=== PATIENT | male | born 1940 | race Caucasian/White ===

== ENCOUNTER → 2016-07-19 | Outpatient (CLI) | payer MEDICARE, OTHER ==
[~2016-07-19] MED LIST: AMOX-277; ASPI81TA27 PO; ATOR20TA PO; CLON0.5T3 PO; CYAN100023 PO; HYDR-2595 PO; INFL100I IV; LOSA50TA30 PO; METH2.5T3 PO; MULT-352 PO; OMEGCAP2 PO; PRE1T PO; RIBO25TA PO; SALI0.65
== END | disposition home or self-care (01) ==
LOC: Rad HDHVI 11:22
PROVIDERS: ATTEND Internal Medicine Cardiovascular Disease
DX: I10 Essential (primary) hypertension (principal); E78.5 Hyperlipidemia, unspecified
CPT/HCPCS: 93306

== ENCOUNTER → 2016-07-27 | Outpatient (CLI) | payer MEDICARE, OTHER | END | disposition home or self-care (01) | LOC: Rad HDHVI 11:22 | PROVIDERS: ATTEND Internal Medicine Cardiovascular Disease | DX: I10 Essential (primary) hypertension (principal); I47.9 Paroxysmal tachycardia, unspecified; E78.5 Hyperlipidemia, unspecified | CPT/HCPCS: 93880 ==

== ENCOUNTER → 2016-10-05 | Outpatient (CLI) | payer MEDICARE, OTHER ==
[~2016-10-05] VITALS: Ht 175.3 cm; Wt 90.7 kg
== END | disposition home or self-care (01) ==
LOC: Rad HDHVI 13:21
PROVIDERS: ATTEND Internal Medicine Cardiovascular Disease
DX: I10 Essential (primary) hypertension (principal); E78.00 Pure hypercholesterolemia, unspecified
CPT/HCPCS: 78452; 93017; 96374; A9500

== ENCOUNTER → 2016-10-26 | Outpatient (CLI) | payer MEDICARE, OTHER ==
[~2016-10-26] MED LIST changes: +IOHEXOL 350 MG/ML 100ML IJ ONE
[2016-10-26 14:05] VITALS: BP 123/79
[2016-10-26 14:40] VITALS: BP 133/67
== END | disposition home or self-care (01) ==
LOC: Rad HDHVI 13:50
PROVIDERS: ATTEND Internal Medicine Cardiovascular Disease
DX: E04.1 Nontoxic single thyroid nodule (principal); I25.10 Atherosclerotic heart disease of native coronary artery without angina pectoris; M47.814 Spondylosis without myelopathy or radiculopathy, thoracic region; I11.0 Hypertensive heart disease with heart failure; I50.9 Heart failure, unspecified; I70.0 Atherosclerosis of aorta; I47.9 Paroxysmal tachycardia, unspecified; E78.00 Pure hypercholesterolemia, unspecified; E55.9 Vitamin D deficiency, unspecified; R91.1 Solitary pulmonary nodule
CPT/HCPCS: 70491; 71260; 96374; G0463; Q9967

== ENCOUNTER → 2016-11-04 | Outpatient (CLI) | payer MEDICARE, OTHER ==
[~2016-11-04] MED LIST changes: -IOHEXOL 350 MG/ML 100ML IJ ONE
== END | disposition home or self-care (01) ==
LOC: Rad HDHVI 11:23
PROVIDERS: ATTEND Internal Medicine Cardiovascular Disease
DX: I73.9 Peripheral vascular disease, unspecified (principal)
CPT/HCPCS: 93926

== ENCOUNTER → 2016-12-19 | Outpatient (CLI) | payer MEDICARE, OTHER ==
[2016-12-19 14:15] VITALS: BP 127/79
[2016-12-19 14:30] VITALS: BP 146/74
== END | disposition home or self-care (01) ==
LOC: CHF HDHVI 12:43
PROVIDERS: ATTEND Internal Medicine Cardiovascular Disease
DX: I25.5 Ischemic cardiomyopathy (principal); I50.9 Heart failure, unspecified; E11.9 Type 2 diabetes mellitus without complications; M06.9 Rheumatoid arthritis, unspecified; I73.9 Peripheral vascular disease, unspecified
CPT/HCPCS: G0166; G0463

== ENCOUNTER → 2016-12-20 | Outpatient (CLI) | payer MEDICARE, OTHER ==
[2016-12-20 12:37] VITALS: BP_SYST 113; BP_SYST 121; BP_DIAS 64; BP_DIAS 69
== END | disposition home or self-care (01) ==
LOC: CHF HDHVI 12:30
PROVIDERS: ATTEND Internal Medicine Cardiovascular Disease
DX: I50.22 Chronic systolic (congestive) heart failure (principal); I25.118 Atherosclerotic heart disease of native coronary artery with other forms of angina pectoris; E11.9 Type 2 diabetes mellitus without complications
CPT/HCPCS: G0166

== ENCOUNTER → 2016-12-21 | Outpatient (CLI) | payer MEDICARE, OTHER ==
[2016-12-21 12:38] VITALS: BP_SYST 113; BP_SYST 117; BP_DIAS 60; BP_DIAS 66
== END | disposition home or self-care (01) ==
LOC: CHF HDHVI 12:38
PROVIDERS: ATTEND Internal Medicine Cardiovascular Disease
DX: I50.22 Chronic systolic (congestive) heart failure (principal); I25.118 Atherosclerotic heart disease of native coronary artery with other forms of angina pectoris; E11.9 Type 2 diabetes mellitus without complications
CPT/HCPCS: G0166

== ENCOUNTER → 2016-12-22 | Outpatient (CLI) | payer MEDICARE, OTHER ==
[2016-12-22 12:32] VITALS: BP_SYST 121; BP_SYST 142; BP_DIAS 75; BP_DIAS 79
== END | disposition home or self-care (01) ==
LOC: CHF HDHVI 12:43
PROVIDERS: ATTEND Internal Medicine Cardiovascular Disease
DX: I25.118 Atherosclerotic heart disease of native coronary artery with other forms of angina pectoris (principal); I50.22 Chronic systolic (congestive) heart failure; E11.9 Type 2 diabetes mellitus without complications
CPT/HCPCS: G0166

== ENCOUNTER → 2016-12-23 | Outpatient (CLI) | payer MEDICARE, OTHER ==
[2016-12-23 12:37] VITALS: BP_SYST 112; BP_SYST 130; BP_DIAS 68; BP_DIAS 80
[2016-12-23 13:45] VITALS: BP 127/70
[2016-12-23 14:30] VITALS: BP 142/77
== END | disposition home or self-care (01) ==
LOC: CHF HDHVI 12:23
PROVIDERS: ATTEND Internal Medicine Cardiovascular Disease
DX: R07.81 Pleurodynia (principal); I25.118 Atherosclerotic heart disease of native coronary artery with other forms of angina pectoris
CPT/HCPCS: 71100; G0166; G0463

== ENCOUNTER → 2016-12-26 | Outpatient (CLI) | payer MEDICARE, OTHER ==
[2016-12-26 12:40] VITALS: BP_SYST 130; BP_SYST 133; BP_DIAS 75; BP_DIAS 76
== END | disposition home or self-care (01) ==
LOC: CHF HDHVI 12:22
PROVIDERS: ATTEND Internal Medicine Cardiovascular Disease
DX: I50.22 Chronic systolic (congestive) heart failure (principal); I25.118 Atherosclerotic heart disease of native coronary artery with other forms of angina pectoris
CPT/HCPCS: G0166

== ENCOUNTER → 2016-12-27 | Outpatient (CLI) | payer MEDICARE, OTHER ==
[2016-12-27 12:35] VITALS: BP_SYST 133; BP_SYST 139; BP_DIAS 69; BP_DIAS 98
== END | disposition home or self-care (01) ==
LOC: CHF HDHVI 12:25
PROVIDERS: ATTEND Internal Medicine Cardiovascular Disease
DX: I50.22 Chronic systolic (congestive) heart failure (principal); I25.118 Atherosclerotic heart disease of native coronary artery with other forms of angina pectoris; E11.9 Type 2 diabetes mellitus without complications
CPT/HCPCS: G0166

== ENCOUNTER → 2016-12-28 | Outpatient (CLI) | payer MEDICARE, OTHER ==
[2016-12-28 12:35] VITALS: BP_SYST 132; BP_DIAS 75; BP_DIAS 97
== END | disposition home or self-care (01) ==
LOC: CHF HDHVI 12:20
PROVIDERS: ATTEND Internal Medicine Cardiovascular Disease
DX: I50.22 Chronic systolic (congestive) heart failure (principal); I25.118 Atherosclerotic heart disease of native coronary artery with other forms of angina pectoris; E11.9 Type 2 diabetes mellitus without complications
CPT/HCPCS: G0166

== ENCOUNTER → 2016-12-29 | Outpatient (CLI) | payer MEDICARE, OTHER ==
[2016-12-29 12:28] VITALS: BP_SYST 114; BP_SYST 128; BP_DIAS 68; BP_DIAS 71
== END | disposition home or self-care (01) ==
LOC: CHF HDHVI 12:28
PROVIDERS: ATTEND Internal Medicine Cardiovascular Disease
DX: I50.22 Chronic systolic (congestive) heart failure (principal); I25.118 Atherosclerotic heart disease of native coronary artery with other forms of angina pectoris; E11.9 Type 2 diabetes mellitus without complications
CPT/HCPCS: G0166

== ENCOUNTER → 2016-12-30 | Outpatient (CLI) | payer MEDICARE, OTHER ==
[2016-12-30 12:29] VITALS: BP_SYST 114; BP_SYST 133; BP_DIAS 81; BP_DIAS 82
== END | disposition home or self-care (01) ==
LOC: CHF HDHVI 12:06
PROVIDERS: ATTEND Internal Medicine Cardiovascular Disease
DX: I25.118 Atherosclerotic heart disease of native coronary artery with other forms of angina pectoris (principal); I50.22 Chronic systolic (congestive) heart failure; E11.9 Type 2 diabetes mellitus without complications
CPT/HCPCS: G0166

== ENCOUNTER → 2017-01-02 | Outpatient (CLI) | payer MEDICARE, OTHER ==
[2017-01-02 12:36] VITALS: BP_SYST 113; BP_SYST 122; BP_DIAS 66; BP_DIAS 74
== END | disposition home or self-care (01) ==
LOC: CHF HDHVI 12:20
PROVIDERS: ATTEND Internal Medicine Cardiovascular Disease
DX: I25.118 Atherosclerotic heart disease of native coronary artery with other forms of angina pectoris (principal)
CPT/HCPCS: G0166

== ENCOUNTER → 2017-01-04 | Outpatient (CLI) | payer MEDICARE, OTHER ==
[2017-01-04 12:31] VITALS: BP_SYST 127; BP_SYST 139; BP_DIAS 72; BP_DIAS 75
== END | disposition home or self-care (01) ==
LOC: CHF HDHVI 12:30
PROVIDERS: ATTEND Internal Medicine Cardiovascular Disease
DX: I25.118 Atherosclerotic heart disease of native coronary artery with other forms of angina pectoris (principal); I50.22 Chronic systolic (congestive) heart failure; E11.9 Type 2 diabetes mellitus without complications
CPT/HCPCS: G0166

== ENCOUNTER → 2017-01-05 | Outpatient (CLI) | payer MEDICARE, OTHER ==
[2017-01-05 12:29] VITALS: BP_SYST 111; BP_SYST 133; BP_DIAS 75; BP_DIAS 76
== END | disposition home or self-care (01) ==
LOC: CHF HDHVI 12:18
PROVIDERS: ATTEND Internal Medicine Cardiovascular Disease
DX: I50.22 Chronic systolic (congestive) heart failure (principal); I25.118 Atherosclerotic heart disease of native coronary artery with other forms of angina pectoris
CPT/HCPCS: G0166

== ENCOUNTER → 2017-01-06 | Outpatient (CLI) | payer MEDICARE, OTHER ==
[2017-01-06 12:27] VITALS: BP_SYST 113; BP_SYST 130; BP_DIAS 72; BP_DIAS 76
== END | disposition home or self-care (01) ==
LOC: CHF HDHVI 12:59
PROVIDERS: ATTEND Internal Medicine Cardiovascular Disease
DX: I50.22 Chronic systolic (congestive) heart failure (principal); I25.118 Atherosclerotic heart disease of native coronary artery with other forms of angina pectoris
CPT/HCPCS: G0166

== ENCOUNTER → 2017-01-09 | Outpatient (CLI) | payer MEDICARE, OTHER ==
[2017-01-09 12:20] VITALS: BP_SYST 110; BP_SYST 112; BP_DIAS 68; BP_DIAS 71
== END | disposition home or self-care (01) ==
LOC: CHF HDHVI 12:12
PROVIDERS: ATTEND Internal Medicine Cardiovascular Disease
DX: I25.118 Atherosclerotic heart disease of native coronary artery with other forms of angina pectoris (principal); I50.22 Chronic systolic (congestive) heart failure; E11.9 Type 2 diabetes mellitus without complications
CPT/HCPCS: G0166

== ENCOUNTER → 2017-01-10 | Outpatient (CLI) | payer MEDICARE, OTHER ==
[2017-01-10 12:30] VITALS: BP_SYST 110; BP_SYST 133; BP_DIAS 64; BP_DIAS 65
== END | disposition home or self-care (01) ==
LOC: CHF HDHVI 12:18
PROVIDERS: ATTEND Internal Medicine Cardiovascular Disease
DX: I25.118 Atherosclerotic heart disease of native coronary artery with other forms of angina pectoris (principal); I50.22 Chronic systolic (congestive) heart failure; E11.9 Type 2 diabetes mellitus without complications
CPT/HCPCS: G0166

== ENCOUNTER → 2017-01-11 | Outpatient (CLI) | payer MEDICARE, OTHER ==
[2017-01-11 12:25] VITALS: BP_SYST 110; BP_SYST 114; BP_DIAS 67; BP_DIAS 70
== END | disposition home or self-care (01) ==
LOC: CHF HDHVI 12:11
PROVIDERS: ATTEND Internal Medicine Cardiovascular Disease
DX: I25.118 Atherosclerotic heart disease of native coronary artery with other forms of angina pectoris (principal); I50.22 Chronic systolic (congestive) heart failure; E11.9 Type 2 diabetes mellitus without complications
CPT/HCPCS: G0166

== ENCOUNTER → 2017-01-13 | Outpatient (CLI) | payer MEDICARE, OTHER ==
[2017-01-13 11:30] VITALS: BP_SYST 121; BP_SYST 139; BP_DIAS 62; BP_DIAS 72
== END | disposition home or self-care (01) ==
LOC: CHF HDHVI 11:21
PROVIDERS: ATTEND Internal Medicine Cardiovascular Disease
DX: I50.22 Chronic systolic (congestive) heart failure (principal); I25.118 Atherosclerotic heart disease of native coronary artery with other forms of angina pectoris; E11.9 Type 2 diabetes mellitus without complications
CPT/HCPCS: G0166

== ENCOUNTER → 2017-01-16 | Outpatient (CLI) | payer MEDICARE, OTHER ==
[2017-01-16 12:19] VITALS: BP_SYST 110; BP_SYST 125; BP_DIAS 70; BP_DIAS 81
== END | disposition home or self-care (01) ==
LOC: CHF HDHVI 12:14
PROVIDERS: ATTEND Internal Medicine Cardiovascular Disease
DX: I25.118 Atherosclerotic heart disease of native coronary artery with other forms of angina pectoris (principal); I11.0 Hypertensive heart disease with heart failure; I50.22 Chronic systolic (congestive) heart failure; E11.9 Type 2 diabetes mellitus without complications; K21.9 Gastro-esophageal reflux disease without esophagitis
CPT/HCPCS: G0166

== ENCOUNTER → 2017-01-17 | Outpatient (CLI) | payer MEDICARE, OTHER ==
[2017-01-17 12:21] VITALS: BP_SYST 117; BP_SYST 130; BP_DIAS 72; BP_DIAS 73
== END | disposition home or self-care (01) ==
LOC: CHF HDHVI 12:13
PROVIDERS: ATTEND Internal Medicine Cardiovascular Disease
DX: I25.118 Atherosclerotic heart disease of native coronary artery with other forms of angina pectoris (principal); I50.22 Chronic systolic (congestive) heart failure
CPT/HCPCS: G0166

== ENCOUNTER → 2017-01-18 | Outpatient (CLI) | payer MEDICARE, OTHER ==
[2017-01-18 12:16] VITALS: BP_SYST 124; BP_SYST 132; BP_DIAS 67; BP_DIAS 78
== END | disposition home or self-care (01) ==
LOC: CHF HDHVI 12:12
PROVIDERS: ATTEND Internal Medicine Cardiovascular Disease
DX: I25.118 Atherosclerotic heart disease of native coronary artery with other forms of angina pectoris (principal); I50.22 Chronic systolic (congestive) heart failure; E11.9 Type 2 diabetes mellitus without complications
CPT/HCPCS: G0166

== ENCOUNTER → 2017-01-19 | Outpatient (CLI) | payer MEDICARE, OTHER ==
[2017-01-19 12:22] VITALS: BP_SYST 113; BP_SYST 125; BP_DIAS 67
== END | disposition home or self-care (01) ==
LOC: CHF HDHVI 12:10
PROVIDERS: ATTEND Internal Medicine Cardiovascular Disease
DX: I25.118 Atherosclerotic heart disease of native coronary artery with other forms of angina pectoris (principal); I50.22 Chronic systolic (congestive) heart failure; E11.9 Type 2 diabetes mellitus without complications
CPT/HCPCS: G0166

== ENCOUNTER → 2017-01-20 | Outpatient (CLI) | payer MEDICARE, OTHER ==
[2017-01-20 12:09] VITALS: BP_SYST 112; BP_SYST 121; BP_DIAS 62; BP_DIAS 69
== END | disposition home or self-care (01) ==
LOC: CHF HDHVI 12:00
PROVIDERS: ATTEND Internal Medicine Cardiovascular Disease
DX: I25.118 Atherosclerotic heart disease of native coronary artery with other forms of angina pectoris (principal); I50.22 Chronic systolic (congestive) heart failure; E11.9 Type 2 diabetes mellitus without complications
CPT/HCPCS: G0166

== ENCOUNTER → 2017-01-23 | Outpatient (CLI) | payer MEDICARE, OTHER ==
[2017-01-23 12:11] VITALS: BP_SYST 113; BP_SYST 130; BP_DIAS 67; BP_DIAS 74
== END | disposition home or self-care (01) ==
LOC: CHF HDHVI 12:03
PROVIDERS: ATTEND Internal Medicine Cardiovascular Disease
DX: I25.118 Atherosclerotic heart disease of native coronary artery with other forms of angina pectoris (principal); I50.22 Chronic systolic (congestive) heart failure; E11.9 Type 2 diabetes mellitus without complications
CPT/HCPCS: G0166

== ENCOUNTER → 2017-01-24 | Outpatient (CLI) | payer MEDICARE, OTHER ==
[2017-01-24 12:20] VITALS: BP_SYST 112; BP_SYST 133; BP_DIAS 65; BP_DIAS 86
== END | disposition home or self-care (01) ==
LOC: CHF HDHVI 12:09
PROVIDERS: ATTEND Internal Medicine Cardiovascular Disease
DX: I25.118 Atherosclerotic heart disease of native coronary artery with other forms of angina pectoris (principal); I50.22 Chronic systolic (congestive) heart failure; E11.9 Type 2 diabetes mellitus without complications
CPT/HCPCS: G0166

== ENCOUNTER → 2017-01-26 | Outpatient (CLI) | payer MEDICARE, OTHER ==
[2017-01-26 12:08] VITALS: BP_SYST 109; BP_SYST 115; BP_DIAS 66
== END | disposition home or self-care (01) ==
LOC: CHF HDHVI 12:00
PROVIDERS: ATTEND Internal Medicine Cardiovascular Disease
DX: I25.118 Atherosclerotic heart disease of native coronary artery with other forms of angina pectoris (principal); I50.22 Chronic systolic (congestive) heart failure; E11.9 Type 2 diabetes mellitus without complications
CPT/HCPCS: G0166

== ENCOUNTER → 2017-01-27 | Outpatient (CLI) | payer MEDICARE, OTHER ==
[2017-01-27 12:12] VITALS: BP_SYST 113; BP_SYST 119; BP_DIAS 67; BP_DIAS 78
== END | disposition home or self-care (01) ==
LOC: CHF HDHVI 12:05
PROVIDERS: ATTEND Internal Medicine Cardiovascular Disease
DX: I25.118 Atherosclerotic heart disease of native coronary artery with other forms of angina pectoris (principal); I50.22 Chronic systolic (congestive) heart failure; E11.9 Type 2 diabetes mellitus without complications
CPT/HCPCS: G0166

== ENCOUNTER → 2017-01-30 | Outpatient (CLI) | payer MEDICARE, OTHER ==
[2017-01-30 12:16] VITALS: BP_SYST 112; BP_SYST 125; BP_DIAS 69; BP_DIAS 70
== END | disposition home or self-care (01) ==
LOC: CHF HDHVI 12:09
PROVIDERS: ATTEND Internal Medicine Cardiovascular Disease
DX: I25.118 Atherosclerotic heart disease of native coronary artery with other forms of angina pectoris (principal); I50.22 Chronic systolic (congestive) heart failure; E11.9 Type 2 diabetes mellitus without complications
CPT/HCPCS: G0166

== ENCOUNTER → 2017-01-31 | Outpatient (CLI) | payer MEDICARE, OTHER ==
[2017-01-31 12:15] VITALS: BP_SYST 118; BP_SYST 119; BP_DIAS 63; BP_DIAS 65
== END | disposition home or self-care (01) ==
LOC: CHF HDHVI 12:01
PROVIDERS: ATTEND Internal Medicine Cardiovascular Disease
DX: I25.118 Atherosclerotic heart disease of native coronary artery with other forms of angina pectoris (principal); I50.22 Chronic systolic (congestive) heart failure; E11.9 Type 2 diabetes mellitus without complications
CPT/HCPCS: G0166

== ENCOUNTER → 2017-02-01 | Outpatient (CLI) | payer MEDICARE, OTHER ==
[2017-02-01 12:15] VITALS: BP_SYST 109; BP_SYST 110; BP_DIAS 64; BP_DIAS 71
== END | disposition home or self-care (01) ==
LOC: CHF HDHVI 12:15
PROVIDERS: ATTEND Internal Medicine Cardiovascular Disease
DX: I25.118 Atherosclerotic heart disease of native coronary artery with other forms of angina pectoris (principal); I50.22 Chronic systolic (congestive) heart failure; E11.9 Type 2 diabetes mellitus without complications
CPT/HCPCS: G0166

== ENCOUNTER → 2017-02-03 | Outpatient (CLI) | payer MEDICARE, OTHER ==
[2017-02-03 12:09] VITALS: BP_SYST 115; BP_SYST 135; BP_DIAS 63; BP_DIAS 69
== END | disposition home or self-care (01) ==
LOC: CHF HDHVI 12:00
PROVIDERS: ATTEND Internal Medicine Cardiovascular Disease
DX: I25.118 Atherosclerotic heart disease of native coronary artery with other forms of angina pectoris (principal); I50.22 Chronic systolic (congestive) heart failure; E11.9 Type 2 diabetes mellitus without complications
CPT/HCPCS: G0166

== ENCOUNTER → 2017-02-06 | Outpatient (CLI) | payer MEDICARE, OTHER ==
[2017-02-06 12:24] VITALS: BP_SYST 113; BP_SYST 121; BP_DIAS 67; BP_DIAS 72
== END | disposition home or self-care (01) ==
LOC: CHF HDHVI 12:08
PROVIDERS: ATTEND Internal Medicine Cardiovascular Disease
DX: I25.118 Atherosclerotic heart disease of native coronary artery with other forms of angina pectoris (principal); I50.22 Chronic systolic (congestive) heart failure
CPT/HCPCS: G0166

== ENCOUNTER → 2017-02-07 | Outpatient (CLI) | payer MEDICARE, OTHER ==
[2017-02-07 12:12] VITALS: BP_SYST 130; BP_SYST 132; BP_DIAS 73; BP_DIAS 76
== END | disposition home or self-care (01) ==
LOC: CHF HDHVI 12:01
PROVIDERS: ATTEND Internal Medicine Cardiovascular Disease
DX: I25.118 Atherosclerotic heart disease of native coronary artery with other forms of angina pectoris (principal); I50.22 Chronic systolic (congestive) heart failure
CPT/HCPCS: G0166

== ENCOUNTER → 2017-02-08 | Outpatient (CLI) | payer MEDICARE, OTHER ==
[2017-02-08 12:20] VITALS: BP_SYST 110; BP_SYST 118; BP_DIAS 68; BP_DIAS 92
== END | disposition home or self-care (01) ==
LOC: CHF HDHVI 12:13
PROVIDERS: ATTEND Internal Medicine Cardiovascular Disease
DX: I25.118 Atherosclerotic heart disease of native coronary artery with other forms of angina pectoris (principal); I50.22 Chronic systolic (congestive) heart failure; E11.9 Type 2 diabetes mellitus without complications
CPT/HCPCS: G0166

== ENCOUNTER → 2017-02-09 | Outpatient (CLI) | payer MEDICARE, OTHER ==
[2017-02-09 12:16] VITALS: BP_SYST 115; BP_SYST 135; BP_DIAS 66; BP_DIAS 67
== END | disposition home or self-care (01) ==
LOC: CHF HDHVI 12:06
PROVIDERS: ATTEND Internal Medicine Cardiovascular Disease
DX: I50.22 Chronic systolic (congestive) heart failure (principal); I25.118 Atherosclerotic heart disease of native coronary artery with other forms of angina pectoris; E11.9 Type 2 diabetes mellitus without complications
CPT/HCPCS: G0166

== ENCOUNTER → 2017-10-09 | Outpatient (CLI) | payer MEDICARE, OTHER | END | disposition home or self-care (01) | LOC: Rad HDHVI 12:41 | PROVIDERS: ATTEND Internal Medicine Cardiovascular Disease | DX: I11.0 Hypertensive heart disease with heart failure (principal); I50.33 Acute on chronic diastolic (congestive) heart failure; E78.00 Pure hypercholesterolemia, unspecified; E11.9 Type 2 diabetes mellitus without complications; E78.5 Hyperlipidemia, unspecified | CPT/HCPCS: 93306 ==

== ENCOUNTER → 2017-10-27 | Outpatient (CLI) | payer MEDICARE, OTHER ==
[~2017-10-27] VITALS: Ht 175.3 cm; Wt 90.7 kg
[2017-10-27 12:28] LABS: Basophils # (auto) 0 uL; Basophils % (auto) 0.7 % (0.0-2.0); Eosinophils # (auto) 0.2 uL; Eosinophils % (auto) 2.9 % (0.0-7.0); Hematocrit 44.2 % (41.0-53.0); Hemoglobin 15.2 g/dL (13.5-17.5); Lymphocytes # (auto) 2.5 uL; Lymphocytes % (auto) 36.8 % (10.0-50.0); Mean Corpuscular Hemoglobin 31.6 pg (28.0-32.0); Mean Corpuscular Hgb Conc. 34.3 g/dL (32.0-36.0); Mean Corpuscular Volume 92.2 fL (80.0-100.0); Monocytes # (auto) 0.7 uL; Neutrophils # (auto) 3.3 uL; Neutrophils % (auto) 49.6 % (37.0-80.0); Nucleated Red Blood Cells % 0.2 %; Platelet Count (auto) 184 10^3/uL (140-450); Red Cell Distribution Width 14.2 % (11.8-14.3); White Blood Cell 6.7 10^3/uL (4.4-10.8)
[2017-10-27 12:48] LABS: Free T4 (Free Thyroxine) 1.27 ng/dL (0.89-1.76); Prostate Specific Antigen 0.03 ng/mL (0.0-4.0)
[2017-10-27 13:14] LABS: Albumin 3.9 g/dL (3.4-5.0); BUN/Creatinine Ratio 15.2; Bilirubin, Total 0.8 mg/dL (0.2-1.0); Calcium 9.1 mg/dL (8.5-10.1); Potassium 3.5 mmol/L (3.5-5.1); Total Protein 7.7 g/dL (6.4-8.2)
[2017-10-27 16:03] LABS: Urine Blood Negative /uL (Negative); Urine Specific Gravity 1.039 (1.001-1.035)
== END | disposition home or self-care (01) ==
LOC: Rad HDHVI 10:29
PROVIDERS: ATTEND Internal Medicine Cardiovascular Disease
DX: E78.00 Pure hypercholesterolemia, unspecified (principal); M79.1 Myalgia; E78.5 Hyperlipidemia, unspecified; D64.9 Anemia, unspecified; I10 Essential (primary) hypertension; E11.9 Type 2 diabetes mellitus without complications; E03.9 Hypothyroidism, unspecified; E55.9 Vitamin D deficiency, unspecified; R53.81 Other malaise; R97.20 Elevated prostate specific antigen [PSA]; R74.8 Abnormal levels of other serum enzymes; D51.9 Vitamin B12 deficiency anemia, unspecified; N39.0 Urinary tract infection, site not specified
CPT/HCPCS: 36415; 78452; 80053; 80061; 81003; 82306; 82550; 82607; 83036; 84153; 84403; 84439; 84443; 85025; 93017; 96374; A9500

== ENCOUNTER → 2017-12-04 | Outpatient (CLI) | payer MEDICARE, OTHER ==
[~2017-12-04] MED LIST changes: +READI-CAT 2 (BARIUM SULF)(VANILLA SMOOTHIE) 450ML ONE
== END ==
LOC: Rad HDHVI 09:58
PROVIDERS: ATTEND Internal Medicine Cardiovascular Disease
DX: K57.30 Diverticulosis of large intestine without perforation or abscess without bleeding (principal); K44.9 Diaphragmatic hernia without obstruction or gangrene; I70.0 Atherosclerosis of aorta; E78.5 Hyperlipidemia, unspecified; E03.9 Hypothyroidism, unspecified; E11.9 Type 2 diabetes mellitus without complications; I11.0 Hypertensive heart disease with heart failure; I50.33 Acute on chronic diastolic (congestive) heart failure; E78.00 Pure hypercholesterolemia, unspecified
CPT/HCPCS: 74176

== ENCOUNTER → 2018-04-02 | Outpatient (CLI) | payer MEDICARE, OTHER ==
[~2018-04-02] MED LIST changes: +CLON0.5T10 PO; -CLON0.5T3 PO; +CLOP75TA28 PO; +GLUC500T48 PO; +LANS30CA63 PO; +LEVO500I7 PO; +OME20T PO; -READI-CAT 2 (BARIUM SULF)(VANILLA SMOOTHIE) 450ML ONE
[2018-04-02 10:55] VITALS: BP 104/61
[2018-04-02 11:17] VITALS: BP 119/68
[2018-04-02 15:54] LABS: Basophils # (auto) 0 uL; Eosinophils # (auto) 0.2 uL; Eosinophils % (auto) 5.1 % (0.0-7.0); Hematocrit 41.2 % (41.0-53.0); Hemoglobin 14.2 g/dL (13.5-17.5); Lymphocytes # (auto) 1.6 uL; Lymphocytes % (auto) 35.4 % (10.0-50.0); Mean Corpuscular Hemoglobin 31.3 pg (28.0-32.0); Mean Corpuscular Hgb Conc. 34.3 g/dL (32.0-36.0); Mean Corpuscular Volume 91.1 fL (80.0-100.0); Monocytes # (auto) 0.5 uL; Monocytes % (auto) 11.1 % (0.0-12.0); Neutrophils # (auto) 2.2 uL; Neutrophils % (auto) 47.4 % (37.0-80.0); Nucleated Red Blood Cells % 1.6 %; Platelet Count (auto) 136 10^3/uL (140-450); Red Blood Cells 4.53 10^6/uL (4.5-5.90); Red Cell Distribution Width 14.5 % (11.8-14.3); White Blood Cell 4.5 10^3/uL (4.4-10.8)
[2018-04-02 15:58] LABS: BUN/Creatinine Ratio 12.9; Calcium 8.5 mg/dL (8.5-10.1); Potassium 3.5 mmol/L (3.5-5.1)
[2018-04-02 16:13] LABS: INR 0.97 (0.9-1.15); Partial Thromboplastin Time 28.9 sec (23.78-33.04); Prothrombin Time 10.4 sec (9.27-12.13)
== END | disposition home or self-care (01) ==
LOC: LAB 10:46
PROVIDERS: ATTEND Internal Medicine Cardiovascular Disease
DX: Z01.818 Encounter for other preprocedural examination (principal); D64.9 Anemia, unspecified; R79.1 Abnormal coagulation profile; I10 Essential (primary) hypertension
CPT/HCPCS: 36415; 80048; 85025; 85610; 85730; 93005; G0463

== ENCOUNTER → 2018-04-16 | Outpatient (CLI) | payer MEDICARE, OTHER ==
[~2018-04-16] MED LIST changes: -AMOX-277; -ASPI81TA27 PO; -ATOR20TA PO; -CYAN100023 PO; -MULT-352 PO; -PRE1T PO; -RIBO25TA PO; -SALI0.65
[2018-04-16 13:00] VITALS: BP 136/71
[2018-04-16 13:30] VITALS: BP 133/80
[2018-04-16 14:00] VITALS: BP_SYST 133; BP_SYST 136; BP_DIAS 71; BP_DIAS 80
== END | disposition home or self-care (01) ==
LOC: CHF HDHVI 13:16
PROVIDERS: ATTEND Internal Medicine Cardiovascular Disease
DX: I25.118 Atherosclerotic heart disease of native coronary artery with other forms of angina pectoris (principal); I11.0 Hypertensive heart disease with heart failure; I50.23 Acute on chronic systolic (congestive) heart failure; I25.10 Atherosclerotic heart disease of native coronary artery without angina pectoris; Z98.61 Coronary angioplasty status
CPT/HCPCS: 93005; G0166; G0463

== ENCOUNTER → 2018-04-17 | Outpatient (CLI) | payer MEDICARE, OTHER ==
[2018-04-17 13:39] VITALS: BP_SYST 117; BP_DIAS 68; BP_DIAS 69
== END | disposition home or self-care (01) ==
LOC: CHF HDHVI 13:25
PROVIDERS: ATTEND Internal Medicine Cardiovascular Disease
DX: I25.118 Atherosclerotic heart disease of native coronary artery with other forms of angina pectoris (principal); I50.23 Acute on chronic systolic (congestive) heart failure; Z98.61 Coronary angioplasty status
CPT/HCPCS: G0166

== ENCOUNTER → 2018-04-18 | Outpatient (CLI) | payer MEDICARE, OTHER ==
[2018-04-18 13:38] VITALS: BP_SYST 126; BP_SYST 132; BP_DIAS 55; BP_DIAS 74
== END | disposition home or self-care (01) ==
LOC: CHF HDHVI 13:28
PROVIDERS: ATTEND Internal Medicine Cardiovascular Disease
DX: I25.118 Atherosclerotic heart disease of native coronary artery with other forms of angina pectoris (principal); I50.23 Acute on chronic systolic (congestive) heart failure; Z98.61 Coronary angioplasty status
CPT/HCPCS: G0166

== ENCOUNTER → 2018-04-19 | Outpatient (CLI) | payer MEDICARE, OTHER ==
[2018-04-19 13:44] VITALS: BP_SYST 126; BP_SYST 133; BP_DIAS 72; BP_DIAS 90
== END | disposition home or self-care (01) ==
LOC: CHF HDHVI 13:21
PROVIDERS: ATTEND Internal Medicine Cardiovascular Disease
DX: I25.118 Atherosclerotic heart disease of native coronary artery with other forms of angina pectoris (principal); I11.0 Hypertensive heart disease with heart failure; I50.23 Acute on chronic systolic (congestive) heart failure; Z98.61 Coronary angioplasty status
CPT/HCPCS: G0166

== ENCOUNTER → 2018-04-20 | Outpatient (CLI) | payer MEDICARE, OTHER ==
[2018-04-20 11:57] VITALS: BP_SYST 118; BP_SYST 119; BP_DIAS 68; BP_DIAS 69
== END | disposition home or self-care (01) ==
LOC: CHF HDHVI 11:53
PROVIDERS: ATTEND Internal Medicine Cardiovascular Disease
DX: I25.118 Atherosclerotic heart disease of native coronary artery with other forms of angina pectoris (principal); I11.0 Hypertensive heart disease with heart failure; I50.23 Acute on chronic systolic (congestive) heart failure; Z98.61 Coronary angioplasty status
CPT/HCPCS: G0166

== ENCOUNTER → 2018-04-23 | Outpatient (CLI) | payer MEDICARE, OTHER ==
[2018-04-23 13:39] VITALS: BP_SYST 123; BP_SYST 134; BP_DIAS 66; BP_DIAS 75
== END | disposition home or self-care (01) ==
LOC: Rad HDHVI 13:01
PROVIDERS: ATTEND Internal Medicine Cardiovascular Disease
DX: I25.118 Atherosclerotic heart disease of native coronary artery with other forms of angina pectoris (principal); I11.0 Hypertensive heart disease with heart failure; I50.23 Acute on chronic systolic (congestive) heart failure; Z98.61 Coronary angioplasty status
CPT/HCPCS: G0166

== ENCOUNTER → 2018-04-25 | Outpatient (CLI) | payer MEDICARE, OTHER ==
[2018-04-25 13:29] VITALS: BP_SYST 115; BP_SYST 119; BP_DIAS 63; BP_DIAS 68
== END | disposition home or self-care (01) ==
LOC: Rad HDHVI 13:25
PROVIDERS: ATTEND Internal Medicine Cardiovascular Disease
DX: I25.118 Atherosclerotic heart disease of native coronary artery with other forms of angina pectoris (principal); I11.0 Hypertensive heart disease with heart failure; I50.23 Acute on chronic systolic (congestive) heart failure; Z98.61 Coronary angioplasty status
CPT/HCPCS: G0166

== ENCOUNTER → 2018-04-26 | Outpatient (CLI) | payer MEDICARE, OTHER ==
[2018-04-26 12:00] VITALS: BP_SYST 114; BP_SYST 140; BP_DIAS 62; BP_DIAS 79
== END | disposition home or self-care (01) ==
LOC: CHF HDHVI 11:55
PROVIDERS: ATTEND Internal Medicine Cardiovascular Disease
DX: I25.118 Atherosclerotic heart disease of native coronary artery with other forms of angina pectoris (principal); I11.0 Hypertensive heart disease with heart failure; I50.23 Acute on chronic systolic (congestive) heart failure; Z98.61 Coronary angioplasty status
CPT/HCPCS: G0166

== ENCOUNTER → 2018-04-27 | Outpatient (CLI) | payer MEDICARE, OTHER ==
[2018-04-27 16:06] VITALS: BP 125/65
[2018-04-27 16:07] VITALS: BP 109/65
== END | disposition home or self-care (01) ==
LOC: CHF HDHVI 12:01
PROVIDERS: ATTEND Internal Medicine Cardiovascular Disease
DX: I25.118 Atherosclerotic heart disease of native coronary artery with other forms of angina pectoris (principal); I11.0 Hypertensive heart disease with heart failure; I50.23 Acute on chronic systolic (congestive) heart failure; Z98.61 Coronary angioplasty status
CPT/HCPCS: G0166

== ENCOUNTER → 2018-04-30 | Outpatient (CLI) | payer MEDICARE, OTHER ==
[2018-04-30 13:35] VITALS: BP_SYST 117; BP_SYST 137; BP_DIAS 63; BP_DIAS 68
== END | disposition home or self-care (01) ==
LOC: CHF HDHVI 13:30
PROVIDERS: ATTEND Internal Medicine Cardiovascular Disease
DX: I25.118 Atherosclerotic heart disease of native coronary artery with other forms of angina pectoris (principal); I11.0 Hypertensive heart disease with heart failure; I50.23 Acute on chronic systolic (congestive) heart failure; Z98.61 Coronary angioplasty status
CPT/HCPCS: G0166

== ENCOUNTER → 2018-05-01 | Outpatient (CLI) | payer MEDICARE, OTHER ==
[2018-05-01 13:37] VITALS: BP_SYST 134; BP_SYST 136; BP_DIAS 66
== END | disposition home or self-care (01) ==
LOC: CHF HDHVI 13:25
PROVIDERS: ATTEND Internal Medicine Cardiovascular Disease
DX: I25.118 Atherosclerotic heart disease of native coronary artery with other forms of angina pectoris (principal); I11.0 Hypertensive heart disease with heart failure; I50.23 Acute on chronic systolic (congestive) heart failure; Z98.61 Coronary angioplasty status
CPT/HCPCS: G0166

== ENCOUNTER → 2018-05-02 | Outpatient (CLI) | payer MEDICARE, OTHER ==
[2018-05-02 13:42] VITALS: BP 115/67
== END | disposition home or self-care (01) ==
LOC: CHF HDHVI 13:32
PROVIDERS: ATTEND Internal Medicine Cardiovascular Disease
DX: I25.118 Atherosclerotic heart disease of native coronary artery with other forms of angina pectoris (principal); I11.0 Hypertensive heart disease with heart failure; I50.23 Acute on chronic systolic (congestive) heart failure; Z98.61 Coronary angioplasty status
CPT/HCPCS: G0166

== ENCOUNTER → 2018-05-03 | Outpatient (CLI) | payer MEDICARE, OTHER ==
[2018-05-03 13:42] VITALS: BP_SYST 121; BP_SYST 140; BP_DIAS 71
== END | disposition home or self-care (01) ==
LOC: CHF HDHVI 13:37
PROVIDERS: ATTEND Internal Medicine Cardiovascular Disease
DX: I25.118 Atherosclerotic heart disease of native coronary artery with other forms of angina pectoris (principal); I11.0 Hypertensive heart disease with heart failure; I50.23 Acute on chronic systolic (congestive) heart failure; Z98.61 Coronary angioplasty status
CPT/HCPCS: G0166

== ENCOUNTER → 2018-05-04 | Outpatient (CLI) | payer MEDICARE, OTHER ==
[2018-05-04 10:08] VITALS: BP_SYST 135; BP_SYST 142; BP_DIAS 83; BP_DIAS 85
[2018-05-04 12:11] VITALS: BP_SYST 110; BP_SYST 126; BP_DIAS 65; BP_DIAS 74
== END | disposition home or self-care (01) ==
LOC: CHF HDHVI 11:56
PROVIDERS: ATTEND Internal Medicine Cardiovascular Disease
DX: I25.118 Atherosclerotic heart disease of native coronary artery with other forms of angina pectoris (principal); I11.0 Hypertensive heart disease with heart failure; I50.23 Acute on chronic systolic (congestive) heart failure; Z98.61 Coronary angioplasty status
CPT/HCPCS: G0166

== ENCOUNTER → 2018-05-07 | Outpatient (CLI) | payer MEDICARE, OTHER ==
[2018-05-07 13:38] VITALS: BP_SYST 114; BP_SYST 135; BP_DIAS 67; BP_DIAS 72
== END | disposition home or self-care (01) ==
LOC: CHF HDHVI 13:31
PROVIDERS: ATTEND Internal Medicine Cardiovascular Disease
DX: I25.118 Atherosclerotic heart disease of native coronary artery with other forms of angina pectoris (principal); I50.23 Acute on chronic systolic (congestive) heart failure; Z98.61 Coronary angioplasty status
CPT/HCPCS: G0166

== ENCOUNTER → 2018-05-08 | Outpatient (CLI) | payer MEDICARE, OTHER ==
[2018-05-08 13:41] VITALS: BP_SYST 126; BP_SYST 129; BP_DIAS 66; BP_DIAS 71
== END | disposition home or self-care (01) ==
LOC: CHF HDHVI 13:29
PROVIDERS: ATTEND Internal Medicine Cardiovascular Disease
DX: I25.118 Atherosclerotic heart disease of native coronary artery with other forms of angina pectoris (principal); I11.0 Hypertensive heart disease with heart failure; I50.23 Acute on chronic systolic (congestive) heart failure; Z98.61 Coronary angioplasty status
CPT/HCPCS: G0166

== ENCOUNTER → 2018-05-09 | Outpatient (CLI) | payer MEDICARE, OTHER ==
[2018-05-09 13:36] VITALS: BP_SYST 128; BP_SYST 131; BP_DIAS 67; BP_DIAS 68
== END | disposition home or self-care (01) ==
LOC: CHF HDHVI 13:29
PROVIDERS: ATTEND Internal Medicine Cardiovascular Disease
DX: I25.118 Atherosclerotic heart disease of native coronary artery with other forms of angina pectoris (principal); I11.0 Hypertensive heart disease with heart failure; I50.23 Acute on chronic systolic (congestive) heart failure; Z98.61 Coronary angioplasty status
CPT/HCPCS: G0166

== ENCOUNTER → 2018-05-11 | Outpatient (CLI) | payer MEDICARE, OTHER ==
[2018-05-11 12:14] VITALS: BP_SYST 118; BP_SYST 125; BP_DIAS 68; BP_DIAS 74
== END | disposition home or self-care (01) ==
LOC: CHF HDHVI 12:01
PROVIDERS: ATTEND Internal Medicine Cardiovascular Disease
DX: I25.118 Atherosclerotic heart disease of native coronary artery with other forms of angina pectoris (principal); I50.23 Acute on chronic systolic (congestive) heart failure; Z98.61 Coronary angioplasty status
CPT/HCPCS: G0166

== ENCOUNTER → 2018-05-14 | Outpatient (CLI) | payer MEDICARE, OTHER ==
[2018-05-14 13:35] VITALS: BP_SYST 116; BP_SYST 135; BP_DIAS 69; BP_DIAS 71
== END | disposition home or self-care (01) ==
LOC: CHF HDHVI 13:30
PROVIDERS: ATTEND Internal Medicine Cardiovascular Disease
DX: I25.118 Atherosclerotic heart disease of native coronary artery with other forms of angina pectoris (principal); I11.0 Hypertensive heart disease with heart failure; I50.23 Acute on chronic systolic (congestive) heart failure; Z98.61 Coronary angioplasty status
CPT/HCPCS: G0166

== ENCOUNTER → 2018-05-15 | Outpatient (CLI) | payer MEDICARE, OTHER ==
[2018-05-15 13:48] VITALS: BP_SYST 132; BP_SYST 133; BP_DIAS 77; BP_DIAS 85
== END | disposition home or self-care (01) ==
LOC: CHF HDHVI 13:25
PROVIDERS: ATTEND Internal Medicine Cardiovascular Disease
DX: I25.118 Atherosclerotic heart disease of native coronary artery with other forms of angina pectoris (principal); I11.0 Hypertensive heart disease with heart failure; I50.23 Acute on chronic systolic (congestive) heart failure; Z98.61 Coronary angioplasty status
CPT/HCPCS: G0166

== ENCOUNTER → 2018-05-16 | Outpatient (CLI) | payer MEDICARE, OTHER ==
[2018-05-16 13:38] VITALS: BP_SYST 122; BP_SYST 124; BP_DIAS 66; BP_DIAS 76
== END | disposition home or self-care (01) ==
LOC: CHF HDHVI 13:27
PROVIDERS: ATTEND Internal Medicine Cardiovascular Disease
DX: I25.118 Atherosclerotic heart disease of native coronary artery with other forms of angina pectoris (principal); I11.0 Hypertensive heart disease with heart failure; I50.23 Acute on chronic systolic (congestive) heart failure; Z98.61 Coronary angioplasty status
CPT/HCPCS: G0166

== ENCOUNTER → 2018-05-17 | Outpatient (CLI) | payer MEDICARE, OTHER ==
[2018-05-17 13:43] VITALS: BP_SYST 111; BP_SYST 117; BP_DIAS 61; BP_DIAS 89
== END | disposition home or self-care (01) ==
LOC: CHF HDHVI 13:20
PROVIDERS: ATTEND Internal Medicine Cardiovascular Disease
DX: I25.118 Atherosclerotic heart disease of native coronary artery with other forms of angina pectoris (principal); I50.23 Acute on chronic systolic (congestive) heart failure; Z98.61 Coronary angioplasty status
CPT/HCPCS: G0166

== ENCOUNTER → 2018-05-18 | Outpatient (CLI) | payer MEDICARE, OTHER ==
[2018-05-18 12:21] VITALS: BP_SYST 112; BP_SYST 118; BP_DIAS 55; BP_DIAS 67
== END | disposition home or self-care (01) ==
LOC: CHF HDHVI 11:58
PROVIDERS: ATTEND Internal Medicine Cardiovascular Disease
DX: I25.118 Atherosclerotic heart disease of native coronary artery with other forms of angina pectoris (principal); I11.0 Hypertensive heart disease with heart failure; I50.23 Acute on chronic systolic (congestive) heart failure; Z98.61 Coronary angioplasty status
CPT/HCPCS: G0166

== ENCOUNTER → 2018-05-21 | Outpatient (CLI) | payer MEDICARE, OTHER ==
[2018-05-21 13:44] VITALS: BP_SYST 113; BP_SYST 139; BP_DIAS 65; BP_DIAS 73
== END | disposition home or self-care (01) ==
LOC: CHF HDHVI 13:31
PROVIDERS: ATTEND Internal Medicine Cardiovascular Disease
DX: I25.118 Atherosclerotic heart disease of native coronary artery with other forms of angina pectoris (principal); I11.0 Hypertensive heart disease with heart failure; I50.23 Acute on chronic systolic (congestive) heart failure; Z98.61 Coronary angioplasty status
CPT/HCPCS: G0166

== ENCOUNTER → 2018-05-22 | Outpatient (CLI) | payer MEDICARE, OTHER ==
[~2018-05-22] MED LIST changes: +VERAPAMIL 2.5MG/ML INJ 2ML VIAL IV ONE
[2018-05-22 13:40] VITALS: BP_SYST 118; BP_SYST 119; BP_DIAS 63; BP_DIAS 74
== END | disposition home or self-care (01) ==
LOC: CHF HDHVI 13:42
PROVIDERS: ATTEND Internal Medicine Cardiovascular Disease
DX: I25.118 Atherosclerotic heart disease of native coronary artery with other forms of angina pectoris (principal); I11.0 Hypertensive heart disease with heart failure; I50.23 Acute on chronic systolic (congestive) heart failure; Z98.61 Coronary angioplasty status
CPT/HCPCS: G0166

== ENCOUNTER → 2018-05-28 | Outpatient (CLI) | payer MEDICARE, OTHER ==
[~2018-05-28] VITALS: Ht 172.7 cm; Wt 81.6 kg
[~2018-05-28] MED LIST changes: -VERAPAMIL 2.5MG/ML INJ 2ML VIAL IV ONE
[2018-05-28 13:43] VITALS: BP_SYST 118; BP_SYST 134; BP_DIAS 59; BP_DIAS 64
== END | disposition home or self-care (01) ==
LOC: CHF HDHVI 09:50
PROVIDERS: ATTEND Internal Medicine Cardiovascular Disease
DX: I25.118 Atherosclerotic heart disease of native coronary artery with other forms of angina pectoris (principal); I11.0 Hypertensive heart disease with heart failure; I50.23 Acute on chronic systolic (congestive) heart failure; I25.5 Ischemic cardiomyopathy; E78.00 Pure hypercholesterolemia, unspecified; D64.9 Anemia, unspecified
CPT/HCPCS: 78452; 93017; 96374; A9500; G0166

== ENCOUNTER → 2018-05-29 | Outpatient (CLI) | payer MEDICARE, OTHER ==
[2018-05-29 13:41] VITALS: BP_SYST 114; BP_SYST 135; BP_DIAS 63; BP_DIAS 67
== END | disposition home or self-care (01) ==
LOC: CHF HDHVI 13:26
PROVIDERS: ATTEND Internal Medicine Cardiovascular Disease
DX: I25.118 Atherosclerotic heart disease of native coronary artery with other forms of angina pectoris (principal); I11.0 Hypertensive heart disease with heart failure; I50.23 Acute on chronic systolic (congestive) heart failure; Z98.61 Coronary angioplasty status
CPT/HCPCS: G0166

== ENCOUNTER → 2018-05-30 | Outpatient (CLI) | payer MEDICARE, OTHER ==
[2018-05-30 13:40] VITALS: BP_SYST 127; BP_SYST 138; BP_DIAS 70; BP_DIAS 71
== END | disposition home or self-care (01) ==
LOC: CHF HDHVI 13:47
PROVIDERS: ATTEND Internal Medicine Cardiovascular Disease
DX: I25.118 Atherosclerotic heart disease of native coronary artery with other forms of angina pectoris (principal); I11.0 Hypertensive heart disease with heart failure; I50.23 Acute on chronic systolic (congestive) heart failure; Z98.61 Coronary angioplasty status
CPT/HCPCS: G0166

== ENCOUNTER → 2018-05-31 | Outpatient (CLI) | payer MEDICARE, OTHER ==
[2018-05-31 13:39] VITALS: BP_SYST 112; BP_SYST 114; BP_DIAS 60; BP_DIAS 66
== END | disposition home or self-care (01) ==
LOC: CHF HDHVI 13:23
PROVIDERS: ATTEND Internal Medicine Cardiovascular Disease
DX: I25.118 Atherosclerotic heart disease of native coronary artery with other forms of angina pectoris (principal); I11.0 Hypertensive heart disease with heart failure; I50.23 Acute on chronic systolic (congestive) heart failure; Z98.61 Coronary angioplasty status
CPT/HCPCS: G0166

== ENCOUNTER → 2018-06-01 | Outpatient (CLI) | payer MEDICARE, OTHER ==
[2018-06-01 12:03] VITALS: BP_SYST 123; BP_DIAS 65; BP_DIAS 66
== END | disposition home or self-care (01) ==
LOC: CHF HDHVI 11:52
PROVIDERS: ATTEND Internal Medicine Cardiovascular Disease
DX: I25.118 Atherosclerotic heart disease of native coronary artery with other forms of angina pectoris (principal); I50.23 Acute on chronic systolic (congestive) heart failure; Z98.61 Coronary angioplasty status
CPT/HCPCS: G0166

== ENCOUNTER → 2018-06-05 | Outpatient (CLI) | payer MEDICARE, OTHER ==
[2018-06-05 13:38] VITALS: BP_SYST 117; BP_SYST 127; BP_DIAS 53; BP_DIAS 60
== END | disposition home or self-care (01) ==
LOC: CHF HDHVI 13:32
PROVIDERS: ATTEND Internal Medicine Cardiovascular Disease
DX: I25.118 Atherosclerotic heart disease of native coronary artery with other forms of angina pectoris (principal); I11.0 Hypertensive heart disease with heart failure; I50.23 Acute on chronic systolic (congestive) heart failure; Z98.61 Coronary angioplasty status
CPT/HCPCS: G0166

== ENCOUNTER → 2018-06-06 | Outpatient (CLI) | payer MEDICARE, OTHER ==
[2018-06-06 13:33] VITALS: BP_SYST 125; BP_SYST 127; BP_DIAS 65; BP_DIAS 68
== END | disposition home or self-care (01) ==
LOC: CHF HDHVI 13:30
PROVIDERS: ATTEND Internal Medicine Cardiovascular Disease
DX: I25.118 Atherosclerotic heart disease of native coronary artery with other forms of angina pectoris (principal); I11.0 Hypertensive heart disease with heart failure; I50.23 Acute on chronic systolic (congestive) heart failure; Z98.61 Coronary angioplasty status
CPT/HCPCS: G0166

== ENCOUNTER → 2018-06-11 | Outpatient (CLI) | payer MEDICARE, OTHER ==
[2018-06-11 13:39] VITALS: BP_SYST 129; BP_SYST 131; BP_DIAS 69; BP_DIAS 72
== END | disposition home or self-care (01) ==
LOC: CHF HDHVI 13:36
PROVIDERS: ATTEND Internal Medicine Cardiovascular Disease
DX: I25.118 Atherosclerotic heart disease of native coronary artery with other forms of angina pectoris (principal); I11.0 Hypertensive heart disease with heart failure; I50.23 Acute on chronic systolic (congestive) heart failure; Z98.61 Coronary angioplasty status
CPT/HCPCS: G0166

== ENCOUNTER → 2018-06-12 | Outpatient (CLI) | payer MEDICARE, OTHER ==
[2018-06-12 13:39] VITALS: BP_SYST 130; BP_DIAS 66; BP_DIAS 71
== END | disposition home or self-care (01) ==
LOC: CHF HDHVI 13:32
PROVIDERS: ATTEND Internal Medicine Cardiovascular Disease
DX: I25.118 Atherosclerotic heart disease of native coronary artery with other forms of angina pectoris (principal); I50.23 Acute on chronic systolic (congestive) heart failure; Z98.61 Coronary angioplasty status
CPT/HCPCS: G0166

== ENCOUNTER → 2018-10-08 | Outpatient (CLI) | payer MEDICARE, OTHER | END | disposition home or self-care (01) | LOC: Rad HDHVI 14:56 | PROVIDERS: ATTEND Internal Medicine Cardiovascular Disease | DX: R41.0 Disorientation, unspecified (principal); I67.2 Cerebral atherosclerosis; G31.9 Degenerative disease of nervous system, unspecified | CPT/HCPCS: 70450 ==

== ENCOUNTER → 2018-10-15 | Outpatient (CLI) | payer MEDICARE, OTHER | END | disposition home or self-care (01) | LOC: Rad HDHVI 12:54 | PROVIDERS: ATTEND Internal Medicine Cardiovascular Disease | DX: I08.3 Combined rheumatic disorders of mitral, aortic and tricuspid valves (principal); I11.9 Hypertensive heart disease without heart failure; I31.3 Pericardial effusion (noninflammatory) | CPT/HCPCS: 93306 ==

== ENCOUNTER → 2019-09-05 | Outpatient (CLI) | payer MEDICARE, OTHER ==
[~2019-09-05] MED LIST changes: +LANS30CA57 PO; -LANS30CA63 PO
== END | disposition home or self-care (01) ==
LOC: Rad HDHVI 10:51
PROVIDERS: ATTEND Internal Medicine Cardiovascular Disease
DX: I25.10 Atherosclerotic heart disease of native coronary artery without angina pectoris (principal); J44.9 Chronic obstructive pulmonary disease, unspecified; I10 Essential (primary) hypertension
CPT/HCPCS: 93306

== ENCOUNTER → 2019-09-18 | Outpatient (CLI) | payer MEDICARE, OTHER ==
[~2019-09-18] VITALS: Ht 172.7 cm; Wt 81.6 kg
[~2019-09-18] MED LIST changes: +ADENOSINE 69 MG in GIVE UN-DILUTED 0 ML IV ONE; +ADENOSINE 90 MG/30 ML INJ IV ONE
[2019-09-18 15:49] LABS: Basophils # (auto) 0.1 10 ^3/uL (0-0.2); Basophils % (auto) 0.6 % (0.0-2.0); Eosinophils # (auto) 0.1 10 ^3/uL (0-0.8); Eosinophils % (auto) 1.5 % (0.0-7.0); Hematocrit 47.2 % (41.0-53.0); Hemoglobin 15.8 g/dL (13.5-17.5); Lymphocytes # (auto) 1.9 10 ^3/uL (0.4-5.4); Lymphocytes % (auto) 22.8 % (10.0-50.0); Mean Corpuscular Hemoglobin 28.2 pg (28.0-32.0); Mean Corpuscular Hgb Conc. 33.5 g/dL (32.0-36.0); Mean Corpuscular Volume 84.4 fL (80.0-100.0); Monocytes # (auto) 0.6 10 ^3/uL (0-1.3); Monocytes % (auto) 7.8 % (0.0-12.0); Neutrophils # (auto) 5.5 10 ^3/uL (1.6-8.6); Neutrophils % (auto) 67.3 % (37.0-80.0); Nucleated Red Blood Cells % 0.2 %; Platelet Count (auto) 219 10^3/uL (140-450); Red Blood Cells 5.59 10^6/uL (4.5-5.90); Red Cell Distribution Width 17.6 % (11.8-14.3); White Blood Cell 8.2 10^3/uL (4.4-10.8)
[2019-09-18 15:51] LABS: Urine Blood Negative /uL (Negative); Urine Specific Gravity 1.021 (1.001-1.035)
[2019-09-18 15:59] LABS: Albumin 4.2 g/dL (3.4-5.0); Calcium 9.6 mg/dL (8.5-10.1); Potassium 4.1 mmol/L (3.5-5.1)
[2019-09-18 16:03] LABS: BUN/Creatinine Ratio 18.1; Bilirubin, Total 0.8 mg/dL (0.2-1.0); Total Protein 9.2 g/dL (6.4-8.2)
[2019-09-18 16:08] LABS: Free T4 (Free Thyroxine) 1.26 ng/dL (0.89-1.76)
[2019-09-18 16:09] LABS: Prostate Specific Antigen 0.05 ng/mL (0.0-4.0)
== END | disposition home or self-care (01) ==
LOC: Rad HDHVI 12:38
PROVIDERS: ATTEND Internal Medicine Cardiovascular Disease
DX: I10 Essential (primary) hypertension (principal); E78.00 Pure hypercholesterolemia, unspecified; M25.519 Pain in unspecified shoulder; R53.1 Weakness
CPT/HCPCS: 36415; 78452; 80053; 80061; 81003; 82306; 82550; 82607; 83036; 84153; 84403; 84439; 84443; 85025; 93005; 96374; 96375; A9500; J0153

== ENCOUNTER → 2019-09-20 | Outpatient (CLI) | payer MEDICARE, OTHER ==
[~2019-09-20] MED LIST changes: -ADENOSINE 69 MG in GIVE UN-DILUTED 0 ML IV ONE; -ADENOSINE 90 MG/30 ML INJ IV ONE; +IOHEXOL 350 MG/ML 100ML IJ ONE
[2019-09-20 12:10] VITALS: BP 139/68
[2019-09-20 12:42] VITALS: BP 145/76
== END | disposition home or self-care (01) ==
LOC: Rad HDHVI 11:51
PROVIDERS: ATTEND Internal Medicine Cardiovascular Disease
DX: M16.11 Unilateral primary osteoarthritis, right hip (principal); M62.50 Muscle wasting and atrophy, not elsewhere classified, unspecified site; K57.30 Diverticulosis of large intestine without perforation or abscess without bleeding; I25.10 Atherosclerotic heart disease of native coronary artery without angina pectoris; K80.20 Calculus of gallbladder without cholecystitis without obstruction; R91.1 Solitary pulmonary nodule; J98.4 Other disorders of lung
CPT/HCPCS: 71260; 73700; Q9967; G0463

== ENCOUNTER → 2019-12-04 | Outpatient (CLI) | payer MEDICARE, OTHER ==
[~2019-12-04] MED LIST changes: -IOHEXOL 350 MG/ML 100ML IJ ONE; +METH2.5T PO; -METH2.5T3 PO
[2019-12-04 14:59] VITALS: BP 143/72
--- NOTE | 2019-12-04 14:59 | NUR ---
Signature Attestation Statement: I AJ CAROLINA performed this procedure EECP on this patient. Addendum: 12/04/19 at 1459 by AJ CAROLINA [email or web address] Amended: Links added.
--- NOTE | 2019-12-04 14:59 | NUR ---
Signature Attestation Statement: I AJ CAROLINA performed this procedure EECP on this patient. Addendum: 12/04/19 at 1500 by AJ CAROLINA [email or web address] Amended: Links added.
--- NOTE | 2019-12-04 15:00 | NUR ---
Signature Attestation Statement: I AJ CAROLINA performed this procedure EECP on this patient. Addendum: 12/04/19 at 1501 by AJ CAROLINA [email or web address] Amended: Links added.
[2019-12-04 15:18] VITALS: BP 140/82
--- NOTE | 2019-12-04 15:18 | NUR ---
Signature Attestation Statement: I AJ CAROLINA performed this procedure EECP on this patient. Addendum: 12/04/19 at 1518 by AJ CAROLINA [email or web address] Amended: Links added.
--- NOTE | 2019-12-04 15:28 | NUR ---
Signature Attestation Statement: I AJ CAROLINA performed this procedure EECP on this patient. Addendum: 12/04/19 at 1528 by AJ CAROLINA [email or web address] Amended: Links added.
== END | disposition home or self-care (01) ==
LOC: CHF HDHVI 13:44
PROVIDERS: ATTEND Internal Medicine Cardiovascular Disease
DX: I25.728 Atherosclerosis of autologous artery coronary artery bypass graft(s) with other forms of angina pectoris (principal); I11.0 Hypertensive heart disease with heart failure; I50.23 Acute on chronic systolic (congestive) heart failure; K21.9 Gastro-esophageal reflux disease without esophagitis; R00.2 Palpitations; M06.9 Rheumatoid arthritis, unspecified
CPT/HCPCS: G0166

== ENCOUNTER → 2019-12-05 | Outpatient (CLI) | payer MEDICARE, OTHER ==
[2019-12-05 15:29] VITALS: BP 145/75
--- NOTE | 2019-12-05 15:29 | NUR ---
Signature Attestation Statement: I AJ CAROLINA performed this procedure EECP on this patient. Addendum: 12/05/19 at 1530 by AJ CAROLINA [email or web address] Amended: Links added.
--- NOTE | 2019-12-05 15:31 | NUR ---
Signature Attestation Statement: I AJ CAROLINA performed this procedure EECP on this patient. Addendum: 12/05/19 at 1531 by AJ CAROLINA [email or web address] Amended: Links added.
--- NOTE | 2019-12-05 15:57 | NUR ---
Signature Attestation Statement: I AJ CAROLINA performed this procedure EECP on this patient. Addendum: 12/05/19 at 1558 by AJ CAROLINA [email or web address] Amended: Links added.
[2019-12-05 15:58] VITALS: BP 144/74
--- NOTE | 2019-12-05 16:10 | NUR ---
Signature Attestation Statement: I AJ CAROLINA performed this procedure EECP on this patient. Addendum: 12/05/19 at 1610 by AJ CAROLINA [email or web address] Amended: Links added.
== END | disposition home or self-care (01) ==
LOC: CHF HDHVI 14:46
PROVIDERS: ATTEND Internal Medicine Cardiovascular Disease
DX: I25.728 Atherosclerosis of autologous artery coronary artery bypass graft(s) with other forms of angina pectoris (principal); I11.0 Hypertensive heart disease with heart failure; I50.23 Acute on chronic systolic (congestive) heart failure; K21.9 Gastro-esophageal reflux disease without esophagitis; R00.2 Palpitations; M06.9 Rheumatoid arthritis, unspecified
CPT/HCPCS: G0166

== ENCOUNTER → 2019-12-06 | Outpatient (CLI) | payer MEDICARE, OTHER ==
[2019-12-06 15:32] VITALS: BP 142/73
--- NOTE | 2019-12-06 15:32 | NUR ---
Signature Attestation Statement: I AJ CAROLINA performed this procedure EECP on this patient. Addendum: 12/06/19 at 1533 by AJ CAROLINA [email or web address] Amended: Links added.
--- NOTE | 2019-12-06 15:33 | NUR ---
Signature Attestation Statement: I AJ CAROLINA performed this procedure EECP on this patient. Addendum: 12/06/19 at 1534 by AJ CAROLINA [email or web address] Amended: Links added.
--- NOTE | 2019-12-06 15:35 | NUR ---
Signature Attestation Statement: I AJ CAROLINA performed this procedure EECP on this patient. Addendum: 12/06/19 at 1536 by AJ CAROLINA [email or web address] Amended: Links added.
[2019-12-06 16:05] VITALS: BP 134/84
--- NOTE | 2019-12-06 16:05 | NUR ---
Signature Attestation Statement: I AJ CAROLINA performed this procedure EECP on this patient. Addendum: 12/06/19 at 1605 by AJ CAROLINA [email or web address] Amended: Links added.
--- NOTE | 2019-12-06 16:16 | NUR ---
Signature Attestation Statement: I AJ CAROLINA performed this procedure EECP on this patient. Addendum: 12/06/19 at 1616 by AJ CAROLINA [email or web address] Amended: Links added.
== END | disposition home or self-care (01) ==
LOC: CHF HDHVI 14:59
PROVIDERS: ATTEND Internal Medicine Cardiovascular Disease
DX: I25.728 Atherosclerosis of autologous artery coronary artery bypass graft(s) with other forms of angina pectoris (principal); I11.0 Hypertensive heart disease with heart failure; I50.23 Acute on chronic systolic (congestive) heart failure; R00.2 Palpitations; K21.9 Gastro-esophageal reflux disease without esophagitis; M06.9 Rheumatoid arthritis, unspecified
CPT/HCPCS: G0166

== ENCOUNTER → 2019-12-09 | Outpatient (CLI) | payer MEDICARE, OTHER ==
[2019-12-09 15:29] VITALS: BP 148/79
--- NOTE | 2019-12-09 15:30 | NUR ---
Signature Attestation Statement: I AJ CAROLINA performed this procedure EECP on this patient. Addendum: 12/09/19 at 1530 by AJ CAROLINA [email or web address] Amended: Links added.
--- NOTE | 2019-12-09 15:31 | NUR ---
Signature Attestation Statement: I AJ CAROLINA performed this procedure EECP on this patient. Addendum: 12/09/19 at 1531 by AJ CAROLINA [email or web address] Amended: Links added.
[2019-12-09 16:03] VITALS: BP 153/87
--- NOTE | 2019-12-09 16:03 | NUR ---
Signature Attestation Statement: I AJ CAROLINA performed this procedure EECP on this patient. Addendum: 12/09/19 at 1603 by AJ CAROLINA [email or web address] Amended: Links added.
--- NOTE | 2019-12-09 16:15 | NUR ---
Signature Attestation Statement: I AJ CAROLINA performed this procedure EECP on this patient. Addendum: 12/09/19 at 1616 by AJ CAROLINA [email or web address] Amended: Links added.
== END | disposition home or self-care (01) ==
LOC: CHF HDHVI 14:53
PROVIDERS: ATTEND Internal Medicine Cardiovascular Disease
DX: I25.728 Atherosclerosis of autologous artery coronary artery bypass graft(s) with other forms of angina pectoris (principal); I11.0 Hypertensive heart disease with heart failure; I50.23 Acute on chronic systolic (congestive) heart failure; M06.9 Rheumatoid arthritis, unspecified; R00.2 Palpitations; K21.9 Gastro-esophageal reflux disease without esophagitis
CPT/HCPCS: G0166

== ENCOUNTER → 2019-12-10 | Outpatient (CLI) | payer MEDICARE, OTHER ==
[2019-12-10 15:46] VITALS: BP 148/78
--- NOTE | 2019-12-10 15:47 | NUR ---
Signature Attestation Statement: I AJ CAROLINA performed this procedure EECP on this patient. Addendum: 12/10/19 at 1547 by AJ CAROLINA [email or web address] Amended: Links added.
--- NOTE | 2019-12-10 15:47 | NUR ---
Signature Attestation Statement: I AJ CAROLINA performed this procedure EECP on this patient. Addendum: 12/10/19 at 1548 by AJ CAROLINA [email or web address] Amended: Links added.
[2019-12-10 16:12] VITALS: BP 131/70
--- NOTE | 2019-12-10 16:12 | NUR ---
Signature Attestation Statement: I AJ CAROLINA performed this procedure EECP on this patient. Addendum: 12/10/19 at 1612 by AJ CAROLINA [email or web address] Amended: Links added.
--- NOTE | 2019-12-10 16:23 | NUR ---
Signature Attestation Statement: I AJ CAROLINA performed this procedure EECP on this patient. Addendum: 12/10/19 at 1623 by AJ CAROLINA [email or web address] Amended: Links added.
== END | disposition home or self-care (01) ==
LOC: CHF HDHVI 14:54
PROVIDERS: ATTEND Internal Medicine Cardiovascular Disease
DX: I25.728 Atherosclerosis of autologous artery coronary artery bypass graft(s) with other forms of angina pectoris (principal); I11.0 Hypertensive heart disease with heart failure; I50.23 Acute on chronic systolic (congestive) heart failure; K21.9 Gastro-esophageal reflux disease without esophagitis; M06.9 Rheumatoid arthritis, unspecified; R00.2 Palpitations
CPT/HCPCS: G0166

== ENCOUNTER → 2019-12-11 | Outpatient (CLI) | payer MEDICARE, OTHER ==
[2019-12-11 15:36] VITALS: BP 134/84
--- NOTE | 2019-12-11 15:37 | NUR ---
Signature Attestation Statement: I AJ CAROLINA performed this procedure EECP on this patient. Addendum: 12/11/19 at 1537 by AJ CAROLINA [email or web address] Amended: Links added.
--- NOTE | 2019-12-11 15:37 | NUR ---
Signature Attestation Statement: I AJ CAROLINA performed this procedure EECP on this patient. Addendum: 12/11/19 at 1538 by AJ CAROLINA [email or web address] Amended: Links added.
--- NOTE | 2019-12-11 16:02 | NUR ---
Signature Attestation Statement: I AJ CAROLINA performed this procedure EECP on this patient. Addendum: 12/11/19 at 1603 by AJ CAROLINA [email or web address] Amended: Links added.
[2019-12-11 16:03] VITALS: BP 148/76
--- NOTE | 2019-12-11 16:19 | NUR ---
Signature Attestation Statement: I AJ CAROLINA performed this procedure EECP on this patient. Addendum: 12/11/19 at 1619 by AJ CAROLINA [email or web address] Amended: Links added.
[2019-12-12 09:47] VITALS: BP 121/73
--- NOTE | 2019-12-12 09:47 | NUR ---
Signature Attestation Statement: I AJ CAROLINA performed this procedure EECP on this patient. Addendum: 12/12/19 at 0948 by AJ CAROLINA [email or web address] Amended: Links added.
== END | disposition home or self-care (01) ==
LOC: CHF HDHVI 14:58
PROVIDERS: ATTEND Internal Medicine Cardiovascular Disease
DX: I25.728 Atherosclerosis of autologous artery coronary artery bypass graft(s) with other forms of angina pectoris (principal); I11.0 Hypertensive heart disease with heart failure; I50.23 Acute on chronic systolic (congestive) heart failure; K21.9 Gastro-esophageal reflux disease without esophagitis; M06.9 Rheumatoid arthritis, unspecified; R00.2 Palpitations
CPT/HCPCS: G0166

== ENCOUNTER → 2019-12-12 | Outpatient (CLI) | payer MEDICARE, OTHER ==
[2019-12-12 15:40] VITALS: BP 138/78
--- NOTE | 2019-12-12 15:41 | NUR ---
Signature Attestation Statement: I AJ CAROLINA performed this procedure EECP on this patient. Addendum: 12/12/19 at 1542 by AJ CAROLINA [email or web address] Amended: Links added.
--- NOTE | 2019-12-12 15:41 | NUR ---
Signature Attestation Statement: I AJ CAROLINA performed this procedure EECP on this patient. Addendum: 12/12/19 at 1541 by AJ CAROLINA [email or web address] Amended: Links added.
[2019-12-12 16:12] VITALS: BP 135/79
--- NOTE | 2019-12-12 16:12 | NUR ---
Signature Attestation Statement: I AJ CAROLINA performed this procedure EECP on this patient. Addendum: 12/12/19 at 1612 by AJ CAROLINA [email or web address] Amended: Links added.
--- NOTE | 2019-12-12 16:24 | NUR ---
Signature Attestation Statement: I AJ CAROLINA performed this procedure EECP on this patient. Addendum: 12/12/19 at 1625 by AJ CAROLINA [email or web address] Amended: Links added.
== END | disposition home or self-care (01) ==
LOC: CHF HDHVI 15:00
PROVIDERS: ATTEND Internal Medicine Cardiovascular Disease
DX: I25.728 Atherosclerosis of autologous artery coronary artery bypass graft(s) with other forms of angina pectoris (principal); I11.0 Hypertensive heart disease with heart failure; I50.23 Acute on chronic systolic (congestive) heart failure; M06.9 Rheumatoid arthritis, unspecified; K21.9 Gastro-esophageal reflux disease without esophagitis; R00.2 Palpitations
CPT/HCPCS: G0166

== ENCOUNTER → 2019-12-13 | Outpatient (CLI) | payer MEDICARE, OTHER ==
[2019-12-13 15:59] VITALS: BP 142/76
--- NOTE | 2019-12-13 15:59 | NUR ---
Signature Attestation Statement: I AJ CAROLINA performed this procedure EECP on this patient. Addendum: 12/13/19 at 1559 by AJ CAROLINA [email or web address] Amended: Links added.
--- NOTE | 2019-12-13 16:00 | NUR ---
Signature Attestation Statement: I AJ CAROLINA performed this procedure EECP on this patient. Addendum: 12/13/19 at 1600 by AJ CAROLINA [email or web address] Amended: Links added.
--- NOTE | 2019-12-13 16:01 | NUR ---
Signature Attestation Statement: I AJ CAROLINA performed this procedure EECP on this patient. Addendum: 12/13/19 at 1601 by AJ CAROLINA [email or web address] Amended: Links added.
--- NOTE | 2019-12-13 16:08 | NUR ---
Signature Attestation Statement: I AJ CAROLINA performed this procedure EECP on this patient. Addendum: 12/13/19 at 1609 by AJ CAROLINA [email or web address] Amended: Links added.
[2019-12-13 16:09] VITALS: BP 150/77
--- NOTE | 2019-12-13 16:16 | NUR ---
Signature Attestation Statement: I AJ CAROLINA performed this procedure EECP on this patient. Addendum: 12/13/19 at 1616 by AJ CAROLINA [email or web address] Amended: Links added.
== END | disposition home or self-care (01) ==
LOC: CHF HDHVI 14:52
PROVIDERS: ATTEND Internal Medicine Cardiovascular Disease
DX: I25.728 Atherosclerosis of autologous artery coronary artery bypass graft(s) with other forms of angina pectoris (principal); I11.0 Hypertensive heart disease with heart failure; I50.23 Acute on chronic systolic (congestive) heart failure; M06.9 Rheumatoid arthritis, unspecified; K21.9 Gastro-esophageal reflux disease without esophagitis; R00.2 Palpitations
CPT/HCPCS: G0166

== ENCOUNTER → 2019-12-16 | Outpatient (CLI) | payer MEDICARE, OTHER ==
[2019-12-16 15:37] VITALS: BP 147/87
--- NOTE | 2019-12-16 15:37 | NUR ---
Signature Attestation Statement: I AJ CAROLINA performed this procedure EECP on this patient. Addendum: 12/16/19 at 1538 by AJ CAROLINA [email or web address] Amended: Links added.
--- NOTE | 2019-12-16 15:39 | NUR ---
Signature Attestation Statement: I AJ CAROLINA performed this procedure EECP on this patient. Addendum: 12/16/19 at 1539 by AJ CAROLINA [email or web address] Amended: Links added.
--- NOTE | 2019-12-16 16:00 | NUR ---
Signature Attestation Statement: I AJ CAROLINA performed this procedure EECP on this patient. Addendum: 12/16/19 at 1601 by AJ CAROLINA [email or web address] Amended: Links added.
[2019-12-16 16:01] VITALS: BP 138/85
--- NOTE | 2019-12-16 16:14 | NUR ---
Signature Attestation Statement: I AJ CAROLINA performed this procedure EECP on this patient. Addendum: 12/16/19 at 1614 by AJ CAROLINA [email or web address] Amended: Links added.
== END | disposition home or self-care (01) ==
LOC: CHF HDHVI 14:00
PROVIDERS: ATTEND Internal Medicine Cardiovascular Disease
DX: I25.728 Atherosclerosis of autologous artery coronary artery bypass graft(s) with other forms of angina pectoris (principal); I11.0 Hypertensive heart disease with heart failure; I50.23 Acute on chronic systolic (congestive) heart failure; K21.9 Gastro-esophageal reflux disease without esophagitis; R00.2 Palpitations; M06.9 Rheumatoid arthritis, unspecified
CPT/HCPCS: G0166

== ENCOUNTER → 2019-12-18 | Outpatient (CLI) | payer MEDICARE, OTHER ==
[~2019-12-18] MED LIST changes: -METH2.5T PO; +METH2.5T3 PO
[2019-12-18 15:57] VITALS: BP 135/76
[2019-12-18 16:15] VITALS: BP 144/82
== END | disposition home or self-care (01) ==
LOC: CHF HDHVI 15:04
PROVIDERS: ATTEND Internal Medicine Cardiovascular Disease
DX: I25.728 Atherosclerosis of autologous artery coronary artery bypass graft(s) with other forms of angina pectoris (principal); I11.0 Hypertensive heart disease with heart failure; I50.23 Acute on chronic systolic (congestive) heart failure; K21.9 Gastro-esophageal reflux disease without esophagitis; M06.9 Rheumatoid arthritis, unspecified; R00.2 Palpitations
CPT/HCPCS: G0166

== ENCOUNTER → 2019-12-20 | Outpatient (CLI) | payer MEDICARE, OTHER ==
[2019-12-20 14:29] VITALS: BP 147/75
--- NOTE | 2019-12-20 14:30 | NUR ---
Signature Attestation Statement: I AJ CAROLINA performed this procedure EECP on this patient. Addendum: 12/20/19 at 1430 by AJ CAROLINA [email or web address] Amended: Links added.
--- NOTE | 2019-12-20 14:30 | NUR ---
Signature Attestation Statement: I AJ CAROLINA performed this procedure EECP on this patient. Addendum: 12/20/19 at 1431 by AJ CAROLINA [email or web address] Amended: Links added.
[2019-12-20 15:07] VITALS: BP 151/84
--- NOTE | 2019-12-20 15:07 | NUR ---
Signature Attestation Statement: I AJ CAROLINA performed this procedure EECP on this patient. Addendum: 12/20/19 at 1507 by AJ CAROLINA [email or web address] Amended: Links added.
--- NOTE | 2019-12-20 15:17 | NUR ---
Signature Attestation Statement: I AJ CAROLINA performed this procedure EECP on this patient. Addendum: 12/20/19 at 1517 by AJ CAROLINA [email or web address] Amended: Links added.
== END | disposition home or self-care (01) ==
LOC: CHF HDHVI 13:46
PROVIDERS: ATTEND Internal Medicine Cardiovascular Disease
DX: I25.728 Atherosclerosis of autologous artery coronary artery bypass graft(s) with other forms of angina pectoris (principal); I11.0 Hypertensive heart disease with heart failure; I50.23 Acute on chronic systolic (congestive) heart failure; K21.9 Gastro-esophageal reflux disease without esophagitis; M06.9 Rheumatoid arthritis, unspecified; R00.2 Palpitations
CPT/HCPCS: G0166

== ENCOUNTER → 2019-12-23 | Outpatient (CLI) | payer MEDICARE, OTHER ==
[2019-12-23 15:43] VITALS: BP 131/67
--- NOTE | 2019-12-23 15:43 | NUR ---
Signature Attestation Statement: I AJ CAROLINA performed this procedure EECP on this patient. Addendum: 12/23/19 at 1543 by AJ CAROLINA [email or web address] Amended: Links added.
--- NOTE | 2019-12-23 15:44 | NUR ---
Signature Attestation Statement: I AJ CAROLINA performed this procedure EECP on this patient. Addendum: 12/23/19 at 1545 by AJ CAROLINA [email or web address] Amended: Links added.
--- NOTE | 2019-12-23 15:44 | NUR ---
Signature Attestation Statement: I AJ CAROLINA performed this procedure EECP on this patient. Addendum: 12/23/19 at 1544 by AJ CAROLINA [email or web address] Amended: Links added.
--- NOTE | 2019-12-23 16:11 | NUR ---
Signature Attestation Statement: I AJ CAROLINA performed this procedure EECP on this patient. Addendum: 12/23/19 at 1611 by AJ CAROLINA [email or web address] Amended: Links added.
[2019-12-23 16:12] VITALS: BP 142/79
--- NOTE | 2019-12-23 16:21 | NUR ---
Signature Attestation Statement: I AJ CAROLINA performed this procedure EECP on this patient. Addendum: 12/23/19 at 1621 by AJ CAROLINA [email or web address] Amended: Links added.
== END | disposition home or self-care (01) ==
LOC: CHF HDHVI 15:02
PROVIDERS: ATTEND Internal Medicine Cardiovascular Disease
DX: I25.728 Atherosclerosis of autologous artery coronary artery bypass graft(s) with other forms of angina pectoris (principal); I11.0 Hypertensive heart disease with heart failure; I50.23 Acute on chronic systolic (congestive) heart failure; K21.9 Gastro-esophageal reflux disease without esophagitis; M06.9 Rheumatoid arthritis, unspecified; R00.2 Palpitations
CPT/HCPCS: G0166

== ENCOUNTER → 2019-12-24 | Outpatient (CLI) | payer MEDICARE, OTHER ==
--- NOTE | 2019-12-24 10:30 | NUR ---
Signature Attestation Statement: I AJ CAROLINA performed this procedure EECP on this patient. Addendum: 12/26/19 at 1031 by AJ CAROLINA [email or web address] Amended: Links added.
[2019-12-24 15:33] VITALS: BP 138/69
--- NOTE | 2019-12-24 15:33 | NUR ---
Signature Attestation Statement: I AJ CAROLINA performed this procedure EECP on this patient. Addendum: 12/24/19 at 1534 by AJ CAROLINA [email or web address] Amended: Links added.
--- NOTE | 2019-12-24 16:15 | NUR ---
Signature Attestation Statement: I AJ CAROLINA performed this procedure EECP on this patient. Addendum: 12/24/19 at 1615 by AJ CAROLINA [email or web address] Amended: Links added.
[2019-12-24 16:16] VITALS: BP 132/68
--- NOTE | 2019-12-24 16:26 | NUR ---
Signature Attestation Statement: I AJ CAROLINA performed this procedure EECP on this patient. Addendum: 12/24/19 at 1627 by AJ CAROLINA [email or web address] Amended: Links added.
== END | disposition home or self-care (01) ==
LOC: CHF HDHVI 14:52
PROVIDERS: ATTEND Internal Medicine Cardiovascular Disease
DX: I25.728 Atherosclerosis of autologous artery coronary artery bypass graft(s) with other forms of angina pectoris (principal); I11.0 Hypertensive heart disease with heart failure; I50.23 Acute on chronic systolic (congestive) heart failure; K21.9 Gastro-esophageal reflux disease without esophagitis; M06.9 Rheumatoid arthritis, unspecified; R00.2 Palpitations
CPT/HCPCS: G0166

== ENCOUNTER → 2019-12-26 | Outpatient (CLI) | payer MEDICARE, OTHER ==
[2019-12-26 15:29] VITALS: BP 139/81
--- NOTE | 2019-12-26 15:29 | NUR ---
Signature Attestation Statement: I AJ CAROLINA performed this procedure EECP on this patient. Addendum: 12/26/19 at 1529 by AJ CAROLINA [email or web address] Amended: Links added.
--- NOTE | 2019-12-26 15:30 | NUR ---
Signature Attestation Statement: I AJ CAROLINA performed this procedure EECP on this patient. Addendum: 12/26/19 at 1530 by AJ CAROLINA [email or web address] Amended: Links added.
--- NOTE | 2019-12-26 15:31 | NUR ---
Signature Attestation Statement: I AJ CAROLINA performed this procedure EECP on this patient. Addendum: 12/26/19 at 1532 by AJ CAROLINA [email or web address] Amended: Links added.
--- NOTE | 2019-12-26 15:34 | NUR ---
Signature Attestation Statement: I AJ CAROLINA performed this procedure EECP on this patient. Addendum: 12/26/19 at 1534 by AJ CAROLINA [email or web address] Amended: Links added.
[2019-12-26 15:59] VITALS: BP 136/84
--- NOTE | 2019-12-26 15:59 | NUR ---
Signature Attestation Statement: I AJ CAROLINA performed this procedure EECP on this patient. Addendum: 12/26/19 at 1559 by AJ CAROLINA [email or web address] Amended: Links added.
--- NOTE | 2019-12-26 16:10 | NUR ---
Signature Attestation Statement: I AJ CAROLINA performed this procedure EECP on this patient. Addendum: 12/26/19 at 1610 by AJ CAROLINA [email or web address] Amended: Links added.
== END | disposition home or self-care (01) ==
LOC: CHF HDHVI 14:48
PROVIDERS: ATTEND Internal Medicine Cardiovascular Disease
DX: I25.728 Atherosclerosis of autologous artery coronary artery bypass graft(s) with other forms of angina pectoris (principal); I11.0 Hypertensive heart disease with heart failure; I50.23 Acute on chronic systolic (congestive) heart failure; K21.9 Gastro-esophageal reflux disease without esophagitis; M06.9 Rheumatoid arthritis, unspecified; R00.2 Palpitations
CPT/HCPCS: G0166

== ENCOUNTER → 2019-12-30 | Outpatient (CLI) | payer MEDICARE, OTHER ==
[2019-12-30 15:47] VITALS: BP 150/80
--- NOTE | 2019-12-30 15:47 | NUR ---
Signature Attestation Statement: I AJ CAROLINA performed this procedure EECP on this patient. Addendum: 12/30/19 at 1548 by AJ CAROLINA [email or web address] Amended: Links added.
--- NOTE | 2019-12-30 15:49 | NUR ---
Signature Attestation Statement: I AJ CAROLINA performed this procedure EECP on this patient.
--- NOTE | 2019-12-30 15:50 | NUR ---
Signature Attestation Statement: I AJ CAROLINA performed this procedure EECP on this patient.
[2019-12-30 15:59] VITALS: BP 141/81
--- NOTE | 2019-12-30 15:59 | NUR ---
Signature Attestation Statement: I AJ CAROLINA performed this procedure EECP on this patient. Addendum: 12/30/19 at 1559 by AJ CAROLINA [email or web address] Amended: Links added.
--- NOTE | 2019-12-30 16:09 | NUR ---
Signature Attestation Statement: I AJ CAROLINA performed this procedure EECP on this patient. Addendum: 12/30/19 at 1610 by AJ CAROLINA [email or web address] Amended: Links added.
--- NOTE | 2019-12-30 16:11 | NUR ---
Signature Attestation Statement: I AJ CAROLINA performed this procedure EECP on this patient. Addendum: 12/30/19 at 1611 by AJ CAROLINA [email or web address] Amended: Links added.
== END | disposition home or self-care (01) ==
LOC: CHF HDHVI 14:34
PROVIDERS: ATTEND Internal Medicine Cardiovascular Disease
DX: I25.728 Atherosclerosis of autologous artery coronary artery bypass graft(s) with other forms of angina pectoris (principal); I11.0 Hypertensive heart disease with heart failure; I50.23 Acute on chronic systolic (congestive) heart failure; M06.9 Rheumatoid arthritis, unspecified; K21.9 Gastro-esophageal reflux disease without esophagitis; R00.2 Palpitations
CPT/HCPCS: G0166

== ENCOUNTER → 2019-12-31 | Outpatient (CLI) | payer MEDICARE, OTHER ==
[~2019-12-31] MED LIST changes: +METH2.5T PO; -METH2.5T3 PO
[2019-12-31 15:29] VITALS: BP 149/77
--- NOTE | 2019-12-31 15:29 | NUR ---
Signature Attestation Statement: I AJ CAROLINA performed this procedure EECP on this patient. Addendum: 12/31/19 at 1529 by AJ CAROLINA [email or web address] Amended: Links added.
--- NOTE | 2019-12-31 15:30 | NUR ---
Signature Attestation Statement: I AJ CAROLINA performed this procedure EECP on this patient. Addendum: 12/31/19 at 1531 by AJ CAROLINA [email or web address] Amended: Links added.
--- NOTE | 2019-12-31 16:04 | NUR ---
Signature Attestation Statement: I AJ CAROLINA performed this procedure EECP on this patient. Addendum: 12/31/19 at 1605 by AJ CAROLINA [email or web address] Amended: Links added.
[2019-12-31 16:05] VITALS: BP 147/81
--- NOTE | 2019-12-31 16:17 | NUR ---
Signature Attestation Statement: I JA CAROLINA performed this procedure EECP on this patient. Addendum: 12/31/19 at 1617 by AJ CAROLINA [email or web address] Amended: Links added.
== END | disposition home or self-care (01) ==
LOC: CHF HDHVI 14:39
PROVIDERS: ATTEND Internal Medicine Cardiovascular Disease
DX: I25.728 Atherosclerosis of autologous artery coronary artery bypass graft(s) with other forms of angina pectoris (principal); I11.0 Hypertensive heart disease with heart failure; I50.23 Acute on chronic systolic (congestive) heart failure; K21.9 Gastro-esophageal reflux disease without esophagitis; M06.9 Rheumatoid arthritis, unspecified; R00.2 Palpitations
CPT/HCPCS: G0166

== ENCOUNTER → 2020-01-01 | Outpatient (CLI) | payer MEDICARE, OTHER ==
[2020-01-01 15:30] VITALS: BP 143/74
--- NOTE | 2020-01-01 15:31 | NUR ---
Signature Attestation Statement: I AJ CAROLINA performed this procedure EECP on this patient. Addendum: 01/01/20 at 1531 by AJ CAROLINA [email or web address] Amended: Links added.
--- NOTE | 2020-01-01 15:32 | NUR ---
Signature Attestation Statement: I AJ CAROLINA performed this procedure EECP on this patient. Addendum: 01/01/20 at 1532 by AJ CAROLINA [email or web address] Amended: Links added.
--- NOTE | 2020-01-01 15:32 | NUR ---
Signature Attestation Statement: I AJ CAROLINA performed this procedure EECP on this patient. Addendum: 01/01/20 at 1533 by AJ CAROLINA [email or web address] Amended: Links added.
[2020-01-01 16:01] VITALS: BP 130/80
--- NOTE | 2020-01-01 16:01 | NUR ---
Signature Attestation Statement: I AJ CAROLINA performed this procedure EECP on this patient. Addendum: 01/01/20 at 1601 by AJ CAROLINA [email or web address] Amended: Links added.
--- NOTE | 2020-01-01 16:12 | NUR ---
Signature Attestation Statement: I AJ CAROLINA performed this procedure EECP on this patient. Addendum: 01/01/20 at 1612 by AJ CAROLINA [email or web address] Amended: Links added.
== END | disposition home or self-care (01) ==
LOC: CHF HDHVI 14:47
PROVIDERS: ATTEND Internal Medicine Cardiovascular Disease
DX: I25.728 Atherosclerosis of autologous artery coronary artery bypass graft(s) with other forms of angina pectoris (principal); I11.0 Hypertensive heart disease with heart failure; I50.23 Acute on chronic systolic (congestive) heart failure; K21.9 Gastro-esophageal reflux disease without esophagitis; M06.9 Rheumatoid arthritis, unspecified; R00.2 Palpitations
CPT/HCPCS: G0166

== ENCOUNTER → 2020-01-02 | Outpatient (CLI) | payer MEDICARE, OTHER ==
[2020-01-02 14:31] VITALS: BP 151/83
--- NOTE | 2020-01-02 14:32 | NUR ---
Signature Attestation Statement: I AJ CAROLINA performed this procedure EECP on this patient. Addendum: 01/02/20 at 1432 by AJ CAROLINA [email or web address] Amended: Links added.
--- NOTE | 2020-01-02 14:33 | NUR ---
Signature Attestation Statement: I AJ CAROLINA performed this procedure EECP on this patient. Addendum: 01/02/20 at 1434 by AJ CAROLINA [email or web address] Amended: Links added.
[2020-01-02 15:09] VITALS: BP 154/78
--- NOTE | 2020-01-02 15:09 | NUR ---
Signature Attestation Statement: I AJ CAROLINA performed this procedure EECP on this patient. Addendum: 01/02/20 at 1509 by AJ CAROLINA [email or web address] Amended: Links added.
--- NOTE | 2020-01-02 15:21 | NUR ---
Signature Attestation Statement: I AJ CAROLINA performed this procedure EECP on this patient. Addendum: 01/02/20 at 1521 by AJ CAROLINA [email or web address] Amended: Links added.
== END | disposition home or self-care (01) ==
LOC: CHF HDHVI 13:38
PROVIDERS: ATTEND Internal Medicine Cardiovascular Disease
DX: I25.728 Atherosclerosis of autologous artery coronary artery bypass graft(s) with other forms of angina pectoris (principal); I11.0 Hypertensive heart disease with heart failure; I50.23 Acute on chronic systolic (congestive) heart failure; K21.9 Gastro-esophageal reflux disease without esophagitis; M06.9 Rheumatoid arthritis, unspecified; R00.2 Palpitations
CPT/HCPCS: G0166

== ENCOUNTER → 2020-01-07 | Outpatient (CLI) | payer MEDICARE, OTHER ==
[2020-01-07 16:01] VITALS: BP 149/71
--- NOTE | 2020-01-07 16:01 | NUR ---
Signature Attestation Statement: I AJ CAROLINA performed this procedure EECP on this patient. Addendum: 01/07/20 at 1602 by AJ CAROLINA [email or web address] Amended: Links added.
--- NOTE | 2020-01-07 16:03 | NUR ---
Signature Attestation Statement: I AJ CAROLINA performed this procedure EECP on this patient. Addendum: 01/07/20 at 1603 by AJ CAROLINA [email or web address] Amended: Links added.
[2020-01-07 16:17] VITALS: BP 140/92
--- NOTE | 2020-01-07 16:17 | NUR ---
Signature Attestation Statement: I AJ CAROLINA performed this procedure EECP on this patient. Addendum: 01/07/20 at 1617 by AJ CAROLINA [email or web address] Amended: Links added.
--- NOTE | 2020-01-07 16:29 | NUR ---
Signature Attestation Statement: I AJ CAROLINA performed this procedure EECP on this patient. Addendum: 01/07/20 at 1629 by AJ CAROLINA [email or web address] Amended: Links added.
== END | disposition home or self-care (01) ==
LOC: CHF HDHVI 14:44
PROVIDERS: ATTEND Internal Medicine Cardiovascular Disease
DX: I25.728 Atherosclerosis of autologous artery coronary artery bypass graft(s) with other forms of angina pectoris (principal); I11.0 Hypertensive heart disease with heart failure; I50.23 Acute on chronic systolic (congestive) heart failure; M06.9 Rheumatoid arthritis, unspecified; K21.9 Gastro-esophageal reflux disease without esophagitis; R00.2 Palpitations
CPT/HCPCS: G0166

== ENCOUNTER → 2020-01-08 | Outpatient (CLI) | payer MEDICARE, OTHER ==
[2020-01-08 14:57] VITALS: BP 133/72
--- NOTE | 2020-01-08 14:57 | NUR ---
Signature Attestation Statement: I AJ CAROLINA performed this procedure EECP on this patient. Addendum: 01/08/20 at 1457 by AJ CAROLINA [email or web address] Amended: Links added.
--- NOTE | 2020-01-08 14:58 | NUR ---
Signature Attestation Statement: I AJ CAROLINA performed this procedure EECP on this patient. Addendum: 01/08/20 at 1458 by AJ CAROLINA [email or web address] Amended: Links added.
--- NOTE | 2020-01-08 14:59 | NUR ---
Signature Attestation Statement: I AJ CAROLINA performed this procedure EECP on this patient. Addendum: 01/08/20 at 1459 by AJ CAROLINA [email or web address] Amended: Links added.
[2020-01-08 15:45] VITALS: BP 121/71
--- NOTE | 2020-01-08 15:45 | NUR ---
Signature Attestation Statement: I AJ CAROLINA performed this procedure EECP on this patient. Addendum: 01/08/20 at 1545 by AJ CAROLINA [email or web address] Amended: Links added.
--- NOTE | 2020-01-08 15:46 | NUR ---
Signature Attestation Statement: I AJ CAROLINA performed this procedure EECP on this patient. Addendum: 01/08/20 at 1547 by AJ CAROLINA [email or web address] Amended: Links added.
== END | disposition home or self-care (01) ==
LOC: CHF HDHVI 14:23
PROVIDERS: ATTEND Internal Medicine Cardiovascular Disease
DX: I25.728 Atherosclerosis of autologous artery coronary artery bypass graft(s) with other forms of angina pectoris (principal); I50.23 Acute on chronic systolic (congestive) heart failure
CPT/HCPCS: G0166

== ENCOUNTER → 2020-01-10 | Outpatient (CLI) | payer MEDICARE, OTHER ==
[2020-01-10 14:34] VITALS: BP 140/74
[2020-01-10 15:15] VITALS: BP 141/81
== END | disposition home or self-care (01) ==
LOC: CHF HDHVI 13:48
PROVIDERS: ATTEND Internal Medicine Cardiovascular Disease
DX: I25.728 Atherosclerosis of autologous artery coronary artery bypass graft(s) with other forms of angina pectoris (principal); I50.23 Acute on chronic systolic (congestive) heart failure; K21.9 Gastro-esophageal reflux disease without esophagitis; R00.2 Palpitations; M06.9 Rheumatoid arthritis, unspecified; I10 Essential (primary) hypertension
CPT/HCPCS: G0166

== ENCOUNTER → 2020-01-13 | Outpatient (CLI) | payer MEDICARE, OTHER ==
[~2020-01-13] MED LIST changes: +IOHEXOL 350 MG/ML 100ML IJ ONE
[2020-01-13 13:24] VITALS: BP 138/78
--- NOTE | 2020-01-13 13:24 | NUR ---
CLINIC PT ARRIVED TO THE [facility] CLIN[facility] FOR CT CHEST ABD WITH IV CONTRAST. A/OX4, AMBULATORY, EVEN UNLABORED RESPIRATIONS. O2 TO ROOM AIR
--- NOTE | 2020-01-13 13:32 | NUR ---
IV insertion IV access obtained, via clean sterile technique by inserting 22 gauge catheter at after 1 attempt(s). IV secured properly. No trauma to site. Patient tolerated procedure well. NOTE INSERTED BY SHARI LUCAS
--- NOTE | 2020-01-13 14:21 | NUR ---
TO EECP WITH AJ. AFTER EECP TREATMENT PT TO GO TO CT PENDING STAT CREAT LEVEL. THEN RETURN TO CLINIC
[2020-01-13 14:41] VITALS: BP 135/79
--- NOTE | 2020-01-13 14:42 | NUR ---
Signature Attestation Statement: I AJ CAROLINA performed this procedure EECP on this patient. Addendum: 01/13/20 at 1442 by AJ CAROLINA [email or web address] Amended: Links added.
--- NOTE | 2020-01-13 14:42 | NUR ---
Signature Attestation Statement: I AJ CAROLINA performed this procedure EECP on this patient. Addendum: 01/13/20 at 1443 by AJ CAROLINA [email or web address] Amended: Links added.
[2020-01-13 15:19] VITALS: BP 143/80
--- NOTE | 2020-01-13 15:19 | NUR ---
Signature Attestation Statement: I AJ CAROLINA performed this procedure EECP on this patient. Addendum: 01/13/20 at 1519 by AJ CAROLINA [email or web address] Amended: Links added.
--- NOTE | 2020-01-13 15:27 | NUR ---
Signature Attestation Statement: I AJ CAROLINA performed this procedure EECP on this patient. Addendum: 01/13/20 at 1527 by AJ CAROLINA [email or web address] Amended: Links added.
--- NOTE | 2020-01-13 15:39 | NUR ---
PT ARRIVED BACK FROM EECP AND CT, A/OX4, AMBULATORY
--- NOTE | 2020-01-13 15:43 | NUR ---
IV removal IV DC'd with sterile technique, catheter fully intact. Pressure dressing applied to site. Patient tolerated procedure well. Discharged with aftercare instructions per MD. NOTE: REMOVED BY MARC LUCAS
[2020-01-13 15:45] VITALS: BP 126/69
--- NOTE | 2020-01-13 15:45 | NUR ---
Discharge Instructions See e-MAR for any mediations given with this visit. Patient education given on disease process. Patient verbalized understanding. Previous labs reviewed. Patient discharged in stable condition with after care instructions and follow up appointment.
== END | disposition home or self-care (01) ==
LOC: Rad HDHVI 13:10
PROVIDERS: ATTEND Internal Medicine Cardiovascular Disease
DX: I25.728 Atherosclerosis of autologous artery coronary artery bypass graft(s) with other forms of angina pectoris (principal); I25.10 Atherosclerotic heart disease of native coronary artery without angina pectoris; R94.4 Abnormal results of kidney function studies; M25.559 Pain in unspecified hip; M16.10 Unilateral primary osteoarthritis, unspecified hip; R07.9 Chest pain, unspecified; K80.20 Calculus of gallbladder without cholecystitis without obstruction; J98.11 Atelectasis; R00.2 Palpitations; K21.9 Gastro-esophageal reflux disease without esophagitis; M06.9 Rheumatoid arthritis, unspecified; I50.23 Acute on chronic systolic (congestive) heart failure
CPT/HCPCS: 36415; 71260; 73700; 82565; G0166; G0463; Q9967

== ENCOUNTER → 2020-01-15 | Outpatient (CLI) | payer MEDICARE, OTHER ==
[~2020-01-15] MED LIST changes: -IOHEXOL 350 MG/ML 100ML IJ ONE
[2020-01-15 15:04] VITALS: BP 130/71
[2020-01-15 15:13] VITALS: BP 131/78
== END | disposition home or self-care (01) ==
LOC: CHF HDHVI 13:24
PROVIDERS: ATTEND Internal Medicine Cardiovascular Disease
DX: I25.728 Atherosclerosis of autologous artery coronary artery bypass graft(s) with other forms of angina pectoris (principal); I11.0 Hypertensive heart disease with heart failure; I50.23 Acute on chronic systolic (congestive) heart failure; M06.9 Rheumatoid arthritis, unspecified; K21.9 Gastro-esophageal reflux disease without esophagitis; R00.2 Palpitations
CPT/HCPCS: G0166

== ENCOUNTER → 2020-01-16 | Outpatient (CLI) | payer MEDICARE, OTHER ==
[2020-01-16 15:34] VITALS: BP 142/74
--- NOTE | 2020-01-16 15:34 | NUR ---
Signature Attestation Statement: I AJ CAROLINA performed this procedure EECP on this patient. Signature Attestation Statement: I AJ CAROLINA performed this procedure EECP on this patient. Addendum: 01/16/20 at 1535 by AJ CAROLINA [email or web address] Amended: Links added.
--- NOTE | 2020-01-16 15:35 | NUR ---
Signature Attestation Statement: I AJ CAROLINA performed this procedure EECP on this patient. Addendum: 01/16/20 at 1535 by AJ CAROLINA [email or web address] Amended: Links added.
--- NOTE | 2020-01-16 15:36 | NUR ---
Signature Attestation Statement: I AJ CAROLINA performed this procedure EECP on this patient. Addendum: 01/16/20 at 1536 by AJ CAROLINA [email or web address] Amended: Links added.
[2020-01-16 15:42] VITALS: BP 129/74
--- NOTE | 2020-01-16 15:42 | NUR ---
Signature Attestation Statement: I AJ CAROLINA performed this procedure EECP on this patient. Addendum: 01/16/20 at 1542 by AJ CAROLINA [email or web address] Amended: Links added.
--- NOTE | 2020-01-16 15:43 | NUR ---
Signature Attestation Statement: I AJ CAROLINA performed this procedure EECP on this patient. Addendum: 01/16/20 at 1543 by AJ CAROLINA [email or web address] Amended: Links added.
== END | disposition home or self-care (01) ==
LOC: CHF HDHVI 13:46
PROVIDERS: ATTEND Internal Medicine Cardiovascular Disease
DX: I25.728 Atherosclerosis of autologous artery coronary artery bypass graft(s) with other forms of angina pectoris (principal); I11.0 Hypertensive heart disease with heart failure; I50.23 Acute on chronic systolic (congestive) heart failure; R00.2 Palpitations; M06.9 Rheumatoid arthritis, unspecified; K21.9 Gastro-esophageal reflux disease without esophagitis
CPT/HCPCS: G0166

== ENCOUNTER → 2020-01-22 | Outpatient (CLI) | payer MEDICARE, OTHER ==
[2020-01-22 14:39] VITALS: BP 143/80
--- NOTE | 2020-01-22 14:40 | NUR ---
Signature Attestation Statement: I AJ CAROLINA performed this procedure EECP on this patient. Addendum: 01/22/20 at 1440 by JA CAROLINA [email or web address] Amended: Links added.
--- NOTE | 2020-01-22 14:41 | NUR ---
Signature Attestation Statement: I AJ CAROLINA performed this procedure EECP on this patient. Addendum: 01/22/20 at 1442 by AJ CAROLINA [email or web address] Amended: Links added.
[2020-01-22 15:10] VITALS: BP 149/85
--- NOTE | 2020-01-22 15:10 | NUR ---
Signature Attestation Statement: I AJ CAROLINA performed this procedure EECP on this patient. Addendum: 01/22/20 at 1510 by AJ CAROLINA [email or web address] Amended: Links added.
--- NOTE | 2020-01-22 15:21 | NUR ---
Signature Attestation Statement: I AJ CAROLINA performed this procedure EECP on this patient. Addendum: 01/22/20 at 1522 by AJ CAROLINA [email or web address] Amended: Links added.
== END | disposition home or self-care (01) ==
LOC: Rad HDHVI 01-20 14:28
PROVIDERS: ATTEND Internal Medicine Cardiovascular Disease
DX: I25.728 Atherosclerosis of autologous artery coronary artery bypass graft(s) with other forms of angina pectoris (principal); I50.23 Acute on chronic systolic (congestive) heart failure; R06.02 Shortness of breath; R00.2 Palpitations; I10 Essential (primary) hypertension; M06.9 Rheumatoid arthritis, unspecified; K21.9 Gastro-esophageal reflux disease without esophagitis; Z98.61 Coronary angioplasty status
CPT/HCPCS: G0166

== ENCOUNTER → 2020-01-28 | Outpatient (CLI) | payer MEDICARE, OTHER ==
[2020-01-28 14:46] VITALS: BP 131/80
--- NOTE | 2020-01-28 14:46 | NUR ---
Signature Attestation Statement: I AJ CAROLINA performed this procedure EECP on this patient. Addendum: 01/28/20 at 1447 by AJ CAROLINA [email or web address] Amended: Links added.
--- NOTE | 2020-01-28 14:48 | NUR ---
Signature Attestation Statement: I AJ CAROLINA performed this procedure EECP on this patient. Addendum: 01/28/20 at 1448 by AJ CAROLINA [email or web address] Amended: Links added.
--- NOTE | 2020-01-28 14:49 | NUR ---
Signature Attestation Statement: I AJ CAROLINA performed this procedure EECP on this patient. Addendum: 01/28/20 at 1449 by AJ CAROLINA [email or web address] Amended: Links added.
[2020-01-28 15:24] VITALS: BP 137/99
--- NOTE | 2020-01-28 15:37 | NUR ---
Signature Attestation Statement: I AJ CAROLINA performed this procedure EECP on this patient. Addendum: 01/28/20 at 1538 by AJ CAROLINA [email or web address] Amended: Links added.
== END | disposition home or self-care (01) ==
LOC: CHF HDHVI 14:05
PROVIDERS: ATTEND Internal Medicine Cardiovascular Disease
DX: I25.728 Atherosclerosis of autologous artery coronary artery bypass graft(s) with other forms of angina pectoris (principal); I11.0 Hypertensive heart disease with heart failure; I50.23 Acute on chronic systolic (congestive) heart failure; K21.9 Gastro-esophageal reflux disease without esophagitis; M06.9 Rheumatoid arthritis, unspecified; R00.2 Palpitations
CPT/HCPCS: G0166

== ENCOUNTER → 2020-01-30 | Outpatient (CLI) | payer MEDICARE, OTHER ==
[2020-01-30 14:34] VITALS: BP 150/85
--- NOTE | 2020-01-30 14:34 | NUR ---
Signature Attestation Statement: I AJ CAROLINA performed this procedure EECP on this patient. Addendum: 01/30/20 at 1435 by AJ CAROLINA [email or web address] Amended: Links added.
--- NOTE | 2020-01-30 14:37 | NUR ---
Signature Attestation Statement: I AJ CAROLINA performed this procedure EECP on this patient. Addendum: 01/30/20 at 1437 by AJ CAROLINA [email or web address] Amended: Links added.
[2020-01-30 15:14] VITALS: BP 144/82
--- NOTE | 2020-01-30 15:14 | NUR ---
Signature Attestation Statement: I AJ CAROLINA performed this procedure EECP on this patient. Addendum: 01/30/20 at 1514 by AJ CAROLINA [email or web address] Amended: Links added.
--- NOTE | 2020-01-30 15:20 | NUR ---
Signature Attestation Statement: I AJ CAROLINA performed this procedure EECP on this patient. Addendum: 01/30/20 at 1520 by AJ CAROLINA [email or web address] Amended: Links added.
== END | disposition home or self-care (01) ==
LOC: CHF HDHVI 13:46
PROVIDERS: ATTEND Internal Medicine Cardiovascular Disease
DX: I25.728 Atherosclerosis of autologous artery coronary artery bypass graft(s) with other forms of angina pectoris (principal); I50.23 Acute on chronic systolic (congestive) heart failure; R06.02 Shortness of breath; K21.9 Gastro-esophageal reflux disease without esophagitis; R00.2 Palpitations; M06.9 Rheumatoid arthritis, unspecified; I10 Essential (primary) hypertension; Z98.61 Coronary angioplasty status
CPT/HCPCS: G0166

== ENCOUNTER → 2020-01-31 | Outpatient (CLI) | payer MEDICARE, OTHER ==
[2020-01-31 14:38] VITALS: BP 141/84
--- NOTE | 2020-01-31 14:38 | NUR ---
Signature Attestation Statement: I AJ CAROLINA performed this procedure EECP on this patient. Addendum: 01/31/20 at 1438 by AJ CAROLINA [email or web address] Amended: Links added.
--- NOTE | 2020-01-31 14:38 | NUR ---
Signature Attestation Statement: I AJ CAROLINA performed this procedure EECP on this patient. Addendum: 01/31/20 at 1439 by AJ CAROLINA [email or web address] Amended: Links added.
--- NOTE | 2020-01-31 14:39 | NUR ---
Signature Attestation Statement: I AJ CAROLINA performed this procedure EECP on this patient. Addendum: 01/31/20 at 1441 by AJ CAROLINA HDHI2 Amended: Links added.
--- NOTE | 2020-01-31 15:11 | NUR ---
Signature Attestation Statement: I AJ CAROLINA performed this procedure EECP on this patient. Addendum: 01/31/20 at 1512 by AJ CAROLINA [email or web address] Amended: Links added.
[2020-01-31 15:12] VITALS: BP 169/84
--- NOTE | 2020-01-31 15:24 | NUR ---
Signature Attestation Statement: I AJ CAROLINA performed this procedure EECP on this patient. Addendum: 01/31/20 at 1524 by AJ CAROLINA [email or web address] Amended: Links added.
== END | disposition home or self-care (01) ==
LOC: CHF HDHVI 13:46
PROVIDERS: ATTEND Internal Medicine Cardiovascular Disease
DX: I25.728 Atherosclerosis of autologous artery coronary artery bypass graft(s) with other forms of angina pectoris (principal); I50.23 Acute on chronic systolic (congestive) heart failure
CPT/HCPCS: G0166

== ENCOUNTER → 2020-02-03 | Outpatient (CLI) | payer MEDICARE, OTHER ==
[2020-02-03 14:35] VITALS: BP 148/87
--- NOTE | 2020-02-03 14:38 | NUR ---
Signature Attestation Statement: I AJ CAROLINA performed this procedure EECP on this patient. Addendum: 02/03/20 at 1438 by AJ CAROLINA [email or web address] Amended: Links added.
--- NOTE | 2020-02-03 14:40 | NUR ---
Signature Attestation Statement: I AJ CAROLINA performed this procedure EECP on this patient. Addendum: 02/03/20 at 1441 by AJ CAROLINA HDHI2 Amended: Links added.
--- NOTE | 2020-02-03 14:42 | NUR ---
Signature Attestation Statement: I AJ CAROLINA performed this procedure EECP on this patient. Addendum: 02/03/20 at 1442 by AJ CAROLINA HDHI2 Amended: Links added.
[2020-02-03 15:06] VITALS: BP 177/103
--- NOTE | 2020-02-03 15:06 | NUR ---
Signature Attestation Statement: I AJ CAROLINA performed this procedure EECP on this patient. Addendum: 02/03/20 at 1506 by AJ CAROLINA HDHI2 Amended: Links added.
--- NOTE | 2020-02-03 15:07 | NUR ---
Signature Attestation Statement: I AJ CAROLINA performed this procedure EECP on this patient. Addendum: 02/03/20 at 1507 by AJ CAROLINA HDHI2 Amended: Links added.
== END | disposition home or self-care (01) ==
LOC: CHF HDHVI 13:07
PROVIDERS: ATTEND Internal Medicine Cardiovascular Disease
DX: I25.728 Atherosclerosis of autologous artery coronary artery bypass graft(s) with other forms of angina pectoris (principal); I11.0 Hypertensive heart disease with heart failure; I50.23 Acute on chronic systolic (congestive) heart failure; K21.9 Gastro-esophageal reflux disease without esophagitis; R00.2 Palpitations; M06.9 Rheumatoid arthritis, unspecified
CPT/HCPCS: G0166

== ENCOUNTER → 2020-02-04 | Outpatient (CLI) | payer MEDICARE, OTHER ==
[2020-02-04 14:38] VITALS: BP 146/85
--- NOTE | 2020-02-04 14:38 | NUR ---
Signature Attestation Statement: I AJ CAROLINA performed this procedure EECP on this patient. Addendum: 02/04/20 at 1438 by AJ CAROLINA HDHI2 Amended: Links added.
--- NOTE | 2020-02-04 14:39 | NUR ---
Signature Attestation Statement: I AJ CAROLINA performed this procedure EECP on this patient. Addendum: 02/04/20 at 1439 by AJ CAROLINA HDHI2 Amended: Links added.
--- NOTE | 2020-02-04 14:40 | NUR ---
Signature Attestation Statement: I AJ CAROLINA performed this procedure EECP on this patient. Addendum: 02/04/20 at 1440 by AJ CAROLINA HDHI2 Amended: Links added.
[2020-02-04 15:22] VITALS: BP 169/84
--- NOTE | 2020-02-04 15:22 | NUR ---
Signature Attestation Statement: I AJ CAROLINA performed this procedure EECP on this patient. Addendum: 02/04/20 at 1522 by AJ CAROLINA HDHI2 Amended: Links added.
--- NOTE | 2020-02-04 15:23 | NUR ---
Signature Attestation Statement: I AJ CAROLINA performed this procedure EECP on this patient. Addendum: 02/04/20 at 1523 by AJ CAROLINA HDHI2 Amended: Links added.
== END | disposition home or self-care (01) ==
LOC: CHF HDHVI 13:50
PROVIDERS: ATTEND Internal Medicine Cardiovascular Disease
DX: I25.728 Atherosclerosis of autologous artery coronary artery bypass graft(s) with other forms of angina pectoris (principal); I11.0 Hypertensive heart disease with heart failure; I50.23 Acute on chronic systolic (congestive) heart failure; K21.9 Gastro-esophageal reflux disease without esophagitis; K06.9 Disorder of gingiva and edentulous alveolar ridge, unspecified; R00.2 Palpitations
CPT/HCPCS: G0166

== ENCOUNTER → 2020-02-05 | Outpatient (CLI) | payer MEDICARE, OTHER ==
[2020-02-05 14:43] VITALS: BP 156/92
--- NOTE | 2020-02-05 14:45 | NUR ---
Signature Attestation Statement: I AJ CAROLINA performed this procedure EECP on this patient. Addendum: 02/05/20 at 1446 by AJ CAROLINA HDHI2 Amended: Links added.
--- NOTE | 2020-02-05 14:55 | NUR ---
Signature Attestation Statement: I AJ CAROLINA performed this procedure EECP on this patient. Addendum: 02/05/20 at 1456 by AJ CAROLINA HDHI2 Amended: Links added.
[2020-02-05 15:23] VITALS: BP 190/88
--- NOTE | 2020-02-05 15:23 | NUR ---
Signature Attestation Statement: I AJ CAROLINA performed this procedure EECP on this patient. Addendum: 02/05/20 at 1524 by AJ CAROLINA HDHI2 Amended: Links added.
== END | disposition home or self-care (01) ==
LOC: CHF HDHVI 13:47
PROVIDERS: ATTEND Internal Medicine Cardiovascular Disease
DX: I25.728 Atherosclerosis of autologous artery coronary artery bypass graft(s) with other forms of angina pectoris (principal); I11.0 Hypertensive heart disease with heart failure; I50.23 Acute on chronic systolic (congestive) heart failure; R00.2 Palpitations; K21.9 Gastro-esophageal reflux disease without esophagitis; M06.9 Rheumatoid arthritis, unspecified
CPT/HCPCS: G0166

== ENCOUNTER → 2020-02-06 | Outpatient (CLI) | payer MEDICARE, OTHER ==
[2020-02-06 14:36] VITALS: BP 169/98
--- NOTE | 2020-02-06 14:37 | NUR ---
Signature Attestation Statement: I AJ CAROLINA performed this procedure EECP on this patient. Addendum: 02/06/20 at 1437 by AJ CAROLINA HDHI2 Amended: Links added.
--- NOTE | 2020-02-06 14:38 | NUR ---
Signature Attestation Statement: I AJ CAROLINA performed this procedure EECP on this patient. Addendum: 02/06/20 at 1438 by AJ CAROLINA HDHI2 Amended: Links added.
[2020-02-06 14:53] VITALS: BP 147/83
--- NOTE | 2020-02-06 14:53 | NUR ---
Signature Attestation Statement: I AJ CAROLINA performed this procedure EECP on this patient. Addendum: 02/06/20 at 1453 by AJ CAROLINA HDHI2 Amended: Links added.
--- NOTE | 2020-02-06 14:54 | NUR ---
Signature Attestation Statement: I AJ CAROLINA performed this procedure EECP on this patient. Addendum: 02/06/20 at 1454 by AJ CAROLINA HDHI2 Amended: Links added.
== END | disposition home or self-care (01) ==
LOC: CHF HDHVI 13:50
PROVIDERS: ATTEND Internal Medicine Cardiovascular Disease
DX: I25.728 Atherosclerosis of autologous artery coronary artery bypass graft(s) with other forms of angina pectoris (principal); I11.0 Hypertensive heart disease with heart failure; I50.23 Acute on chronic systolic (congestive) heart failure; K21.9 Gastro-esophageal reflux disease without esophagitis; M06.9 Rheumatoid arthritis, unspecified; R00.2 Palpitations
CPT/HCPCS: G0166

== ENCOUNTER → 2020-02-10 | Outpatient (CLI) | payer MEDICARE, OTHER ==
[2020-02-10 14:43] VITALS: BP 172/81
[2020-02-10 15:08] VITALS: BP 143/95
== END | disposition home or self-care (01) ==
LOC: CHF HDHVI 13:48
PROVIDERS: ATTEND Internal Medicine Cardiovascular Disease
DX: I25.728 Atherosclerosis of autologous artery coronary artery bypass graft(s) with other forms of angina pectoris (principal); I11.0 Hypertensive heart disease with heart failure; I50.23 Acute on chronic systolic (congestive) heart failure; R00.2 Palpitations; M06.9 Rheumatoid arthritis, unspecified; K21.9 Gastro-esophageal reflux disease without esophagitis
CPT/HCPCS: G0166

== ENCOUNTER → 2020-02-13 | Outpatient (CLI) | payer MEDICARE, OTHER ==
[2020-02-13 14:47] VITALS: BP 146/85
--- NOTE | 2020-02-13 14:47 | NUR ---
Signature Attestation Statement: I AJ CAROLINA performed this procedure EECP on this patient. Addendum: 02/13/20 at 1447 by AJ CAROLINA HDHI2 Amended: Links added.
--- NOTE | 2020-02-13 14:48 | NUR ---
Signature Attestation Statement: I AJ CAROLINA performed this procedure EECP on this patient. Addendum: 02/13/20 at 1448 by AJ CAROLINA HDHI2 Amended: Links added.
--- NOTE | 2020-02-13 14:53 | NUR ---
Signature Attestation Statement: I AJ CAROLINA performed this procedure EECP on this patient. Addendum: 02/13/20 at 1453 by AJ CAROLINA HDHI2 Amended: Links added.
--- NOTE | 2020-02-13 15:06 | NUR ---
Signature Attestation Statement: I AJ CAROLINA performed this procedure EECP on this patient. Addendum: 02/13/20 at 1507 by AJ CAROLINA HDHI2 Amended: Links added.
[2020-02-13 15:07] VITALS: BP 126/78
--- NOTE | 2020-02-13 15:08 | NUR ---
Signature Attestation Statement: I AJ CAROLINA performed this procedure EECP on this patient. Addendum: 02/13/20 at 1508 by AJ CAROLINA HDHI2 Amended: Links added.
== END | disposition home or self-care (01) ==
LOC: CHF HDHVI 13:54
PROVIDERS: ATTEND Internal Medicine Cardiovascular Disease
DX: I25.728 Atherosclerosis of autologous artery coronary artery bypass graft(s) with other forms of angina pectoris (principal); I11.0 Hypertensive heart disease with heart failure; I50.23 Acute on chronic systolic (congestive) heart failure; K21.9 Gastro-esophageal reflux disease without esophagitis; R00.2 Palpitations; M06.9 Rheumatoid arthritis, unspecified
CPT/HCPCS: G0166

== ENCOUNTER → 2020-02-14 | Outpatient (CLI) | payer MEDICARE, OTHER ==
[2020-02-14 14:49] VITALS: BP 168/93
--- NOTE | 2020-02-14 14:49 | NUR ---
Signature Attestation Statement: I AJ CAROLINA performed this procedure EECP on this patient. Addendum: 02/14/20 at 1450 by AJ CAROLINA HDHI2 Amended: Links added.
--- NOTE | 2020-02-14 14:51 | NUR ---
Signature Attestation Statement: I AJ CAROLINA performed this procedure EECP on this patient. Addendum: 02/14/20 at 1452 by AJ CAROLINA HDHI2 Amended: Links added.
[2020-02-14 14:58] VITALS: BP 153/94
--- NOTE | 2020-02-14 14:58 | NUR ---
Signature Attestation Statement: I AJ CAROLINA performed this procedure EECP on this patient. Addendum: 02/14/20 at 1458 by AJ CAROLINA HDHI2 Amended: Links added.
--- NOTE | 2020-02-14 14:59 | NUR ---
Signature Attestation Statement: I AJ CAROLINA performed this procedure EECP on this patient. Addendum: 02/14/20 at 1459 by AJ CAROLINA HDHI2 Amended: Links added.
== END | disposition home or self-care (01) ==
LOC: CHF HDHVI 14:04
PROVIDERS: ATTEND Internal Medicine Cardiovascular Disease
DX: I25.728 Atherosclerosis of autologous artery coronary artery bypass graft(s) with other forms of angina pectoris (principal); I50.23 Acute on chronic systolic (congestive) heart failure; I10 Essential (primary) hypertension; K21.9 Gastro-esophageal reflux disease without esophagitis; M06.9 Rheumatoid arthritis, unspecified; R00.2 Palpitations
CPT/HCPCS: G0166

== ENCOUNTER → 2020-12-02 | Outpatient (CLI) | payer MEDICARE, OTHER | END | disposition home or self-care (01) | LOC: Rad HDHVI 13:48 | PROVIDERS: ATTEND Internal Medicine Cardiovascular Disease | DX: I10 Essential (primary) hypertension (principal); R06.02 Shortness of breath | CPT/HCPCS: 93306 ==

== ENCOUNTER → 2020-12-09 | Outpatient (CLI) | payer MEDICARE, OTHER | END | disposition home or self-care (01) | LOC: Rad HDHVI 13:37 | PROVIDERS: ATTEND Internal Medicine Cardiovascular Disease | DX: M47.817 Spondylosis without myelopathy or radiculopathy, lumbosacral region (principal); M48.07 Spinal stenosis, lumbosacral region; M43.17 Spondylolisthesis, lumbosacral region; M51.37 Other intervertebral disc degeneration, lumbosacral region; I70.0 Atherosclerosis of aorta; K57.30 Diverticulosis of large intestine without perforation or abscess without bleeding; M16.11 Unilateral primary osteoarthritis, right hip; M25.851 Other specified joint disorders, right hip; M25.751 Osteophyte, right hip; M25.78 Osteophyte, vertebrae; R10.2 Pelvic and perineal pain; M54.5 Low back pain; D18.09 Hemangioma of other sites | CPT/HCPCS: 72131; 72192 ==

== ENCOUNTER → 2021-02-03 | Outpatient (CLI) | payer MEDICARE, OTHER ==
[~2021-02-03] VITALS: Ht 172.7 cm; Wt 68.0 kg
[~2021-02-03] MED LIST changes: +ADENOSINE 57 MG in GIVE UN-DILUTED 0 ML IV ONE; +ADENOSINE 90 MG/30 ML INJ IV ONE
== END | disposition home or self-care (01) ==
LOC: Rad HDHVI 13:26
PROVIDERS: ATTEND Internal Medicine Cardiovascular Disease
DX: I11.0 Hypertensive heart disease with heart failure (principal); I50.43 Acute on chronic combined systolic (congestive) and diastolic (congestive) heart failure; I25.10 Atherosclerotic heart disease of native coronary artery without angina pectoris; E78.00 Pure hypercholesterolemia, unspecified
CPT/HCPCS: 78452; 93005; 96374; 96375; A9500; J0153

== ENCOUNTER → 2021-08-16 | Outpatient (CLI) | payer MEDICARE, OTHER ==
[~2021-08-16] MED LIST changes: -ADENOSINE 57 MG in GIVE UN-DILUTED 0 ML IV ONE; -ADENOSINE 90 MG/30 ML INJ IV ONE
[2021-08-16 15:19] LABS: Basophils # (auto) 0.1 10 ^3/uL (0-0.2); Basophils % (auto) 0.9 % (0.0-2.0); Eosinophils # (auto) 0.2 10 ^3/uL (0-0.8); Eosinophils % (auto) 2.3 % (0.0-7.0); Hematocrit 40.8 % (41.0-53.0); Hemoglobin 13.9 g/dL (13.5-17.5); Lymphocytes # (auto) 1.2 10 ^3/uL (0.4-5.4); Lymphocytes % (auto) 15.3 % (10.0-50.0); Mean Corpuscular Hemoglobin 31.3 pg (28.0-32.0); Mean Corpuscular Volume 92.1 fL (80.0-100.0); Monocytes # (auto) 0.4 10 ^3/uL (0-1.3); Monocytes % (auto) 4.7 % (0.0-12.0); Neutrophils # (auto) 6.1 10 ^3/uL (1.6-8.6); Neutrophils % (auto) 76.8 % (37.0-80.0); Nucleated Red Blood Cells % 0.2 %; Red Blood Cells 4.43 10^6/uL (4.5-5.90); Red Cell Distribution Width 15.3 % (11.8-14.3)
[2021-08-16 15:20] LABS: Urine Blood Negative /uL (Negative); Urine Specific Gravity 1.019 (1.001-1.035)
[2021-08-16 15:30] LABS: Albumin 3.9 g/dL (3.4-5.0); Potassium 4.3 mmol/L (3.5-5.1)
[2021-08-16 15:37] LABS: Free T4 (Free Thyroxine) 1.06 ng/dL (0.89-1.76)
[2021-08-16 15:38] LABS: Prostate Specific Antigen 0.12 ng/mL (0.0-4.0)
[2021-08-16 15:40] LABS: BUN/Creatinine Ratio 21.6; Bilirubin, Total 0.5 mg/dL (0.2-1.0); Calcium 8.9 mg/dL (8.5-10.1); Total Protein 7.1 g/dL (6.4-8.2)
== END | disposition home or self-care (01) ==
LOC: CHF HDHVI 13:29
PROVIDERS: ATTEND Internal Medicine Cardiovascular Disease
DX: C61 Malignant neoplasm of prostate (principal); E11.9 Type 2 diabetes mellitus without complications; D51.3 Other dietary vitamin B12 deficiency anemia; D64.9 Anemia, unspecified; E55.9 Vitamin D deficiency, unspecified; I10 Essential (primary) hypertension; R00.2 Palpitations; R53.1 Weakness; R30.0 Dysuria
CPT/HCPCS: 36415; 80053; 80061; 81003; 82306; 82607; 83036; 84153; 84403; 84439; 84443; 85025

== ENCOUNTER → 2022-09-09 | Outpatient (CLI) | payer MEDICARE, OTHER | END | disposition home or self-care (01) | LOC: Rad HDHVI 13:44 | PROVIDERS: ATTEND Internal Medicine Cardiovascular Disease | DX: I08.3 Combined rheumatic disorders of mitral, aortic and tricuspid valves (principal); I10 Essential (primary) hypertension; R00.2 Palpitations | CPT/HCPCS: 93306 ==

== ENCOUNTER → 2022-10-31 | Outpatient (CLI) | payer MEDICARE, OTHER ==
[~2022-10-31] MED LIST changes: +CHOL100040 PO; +DULO60CA PO; +FAMO-12 PO; +FOLI1TAB6 PO; +HYDR-4188 PO; +MAGN400T40 PO; +POM; +PRED1PAK8 PO
[2022-10-31 11:09] VITALS: BP 143/81
[2022-10-31 11:35] VITALS: BP 122/75
== END | disposition home or self-care (01) ==
LOC: Rad HDHVI 10:59
PROVIDERS: ATTEND Internal Medicine Cardiovascular Disease
DX: R94.31 Abnormal electrocardiogram [ECG] [EKG] (principal); I49.1 Atrial premature depolarization; I51.7 Cardiomegaly; Z01.810 Encounter for preprocedural cardiovascular examination; R06.02 Shortness of breath; I25.10 Atherosclerotic heart disease of native coronary artery without angina pectoris; I35.8 Other nonrheumatic aortic valve disorders
CPT/HCPCS: 71046; 93005; G0463

== ENCOUNTER 2022-11-03 08:48 | Inpatient (IN) | payer MEDICARE, OTHER ==
[2022-10-31 14:25] LABS: Basophils # (auto) 0.1 10 ^3/uL (0-0.2); Basophils % (auto) 0.7 % (0.0-2.0); Eosinophils # (auto) 0.1 10 ^3/uL (0-0.8); Eosinophils % (auto) 0.7 % (0.0-7.0); Hematocrit 44.8 % (41.0-53.0); Hemoglobin 15.3 g/dL (13.5-17.5); Lymphocytes # (auto) 1.6 10 ^3/uL (0.4-5.4); Lymphocytes % (auto) 15.2 % (10.0-50.0); Mean Corpuscular Hemoglobin 30.8 pg (28.0-32.0); Mean Corpuscular Hgb Conc. 34.1 g/dL (32.0-36.0); Mean Corpuscular Volume 90.5 fL (80.0-100.0); Monocytes # (auto) 0.7 10 ^3/uL (0-1.3); Monocytes % (auto) 6.7 % (0.0-12.0); Neutrophils # (auto) 7.9 10 ^3/uL (1.6-8.6); Neutrophils % (auto) 76.7 % (37.0-80.0); Nucleated Red Blood Cells % 0.1 %; Red Blood Cells 4.95 10^6/uL (4.5-5.90); Red Cell Distribution Width 16.5 % (11.8-14.3); White Blood Cell 10.3 10^3/uL (4.4-10.8)
[2022-10-31 14:47] LABS: INR 0.97 (0.9-1.15); Partial Thromboplastin Time 27.8 sec (24.6-33.4)
[2022-10-31 15:07] LABS: Potassium 3.7 mmol/L (3.5-5.1)
[2022-10-31 15:12] LABS: BUN/Creatinine Ratio 14.8 (10.0-20.0); Calcium 8.9 mg/dL (8.5-10.1)
[~2022-11-03] VITALS: Ht 172.7 cm; Wt 71.0 kg
[2022-11-03] VITALS (23 sets, daily range): BP systolic 40–164; BP diastolic 20–92
[2022-11-03] MEDS ORDERED: ANGIOMAX 250 MG VIAL IV ONE (09:46)
[2022-11-03] MEDS ORDERED: fentaNYL CITRATE 100 MCG/2 ML VL ONE (09:46)
[2022-11-03] MEDS ORDERED: SODIUM CHL 0.9% 0 ML ONE (09:46)
[2022-11-03] MEDS ORDERED: MIDAZOLAM HCL 2MG/2ML 2ml VIAL (1mg/ml) ONE (09:46)
[2022-11-03] MEDS ORDERED: LIDOCAINE 2%HCL (LOCAL ANESTH.) INJ 20ML MDV ONE (09:47)
[2022-11-03] MEDS ORDERED: NITROGLYCERIN 0.4MG/DOSE SPRAY 4.9GM ONE (10:19)
[2022-11-03] MEDS ORDERED: MORPHINE SULFATE INJ 2 MG/ml SYRG IV PRN (11:45)
[2022-11-03] MEDS ORDERED: NITROGLYCERIN 0.4 MG SL TAB SL PRN (11:45)
[2022-11-03] MEDS ORDERED: clonazePAM 0.5 MG TAB PO PRN (12:45)
[2022-11-03] MEDS ORDERED: ACETAMINOPHEN 325 MG TAB PO PRN (15:45)
[2022-11-03] MEDS: FAMOTIDINE 20 MG TAB PO SCH (21:09)
[2022-11-03 21:30] LABS: Urine Bacteria NONE SEEN /hpf (None Seen); Urine Blood Negative /uL (Negative); Urine Specific Gravity 1.025 (1.001-1.035); Urine WBC 1 /hpf (0 - 3)
[2022-11-04 05:00] VITALS: BP 145/80
[2022-11-04 06:31] LABS: Basophils # (auto) 0.1 10 ^3/uL (0-0.2); Basophils % (auto) 0.7 % (0.0-2.0); Eosinophils # (auto) 0.1 10 ^3/uL (0-0.8); Eosinophils % (auto) 1.6 % (0.0-7.0); Hematocrit 42.1 % (41.0-53.0); Hemoglobin 14.6 g/dL (13.5-17.5); Lymphocytes # (auto) 1.8 10 ^3/uL (0.4-5.4); Lymphocytes % (auto) 21.1 % (10.0-50.0); Mean Corpuscular Hemoglobin 31.2 pg (28.0-32.0); Mean Corpuscular Hgb Conc. 34.8 g/dL (32.0-36.0); Mean Corpuscular Volume 89.8 fL (80.0-100.0); Monocytes # (auto) 0.8 10 ^3/uL (0-1.3); Monocytes % (auto) 9.5 % (0.0-12.0); Neutrophils # (auto) 5.7 10 ^3/uL (1.6-8.6); Neutrophils % (auto) 67.1 % (37.0-80.0); Nucleated Red Blood Cells % 0.3 %; Red Blood Cells 4.69 10^6/uL (4.5-5.90); White Blood Cell 8.5 10^3/uL (4.4-10.8)
[2022-11-04 06:39] LABS: Calcium 8.9 mg/dL (8.5-10.1); Potassium 3.2 mmol/L (3.5-5.1)
[2022-11-04 06:44] LABS: Albumin 3.8 g/dL (3.4-5.0); BUN/Creatinine Ratio 16.3 (10.0-20.0); Bilirubin, Total 1.4 mg/dL (0.2-1.0)
[2022-11-04 06:53] LABS: INR 1.02 (0.9-1.15); Partial Thromboplastin Time 29.2 sec (24.6-33.4)
[2022-11-04] MEDS ORDERED: LEVOTHYROXINE SODIUM 25 MCG TAB PO SCH (07:00)
[2022-11-04 09:00] VITALS: BP 120/70
[2022-11-04] MEDS ORDERED: hydrOXYchloroQUINE SULFATE 200 MG TAB PO SCH (10:00)
[2022-11-04] MEDS ORDERED: predniSONE 5 MG TAB PO SCH (10:00)
[2022-11-04] MEDS ORDERED: MAGNESIUM OXIDE 400 MG TAB PO SCH (10:00)
[2022-11-04] MEDS ORDERED: OMEGA PO SCH (10:00)
[2022-11-04] MEDS ORDERED: FOLIC ACID 1 MG TAB PO SCH (10:00)
[2022-11-04] MEDS ORDERED: DULoxetine HCL 30 MG CAP PO SCH (10:00)
[2022-11-04] MEDS ORDERED: CHOLECALCIFEROL (VITD3) 1,000UNIT=25mCg TAB PO SCH (10:00)
[2022-11-04] MEDS: FAMOTIDINE 20 MG TAB PO SCH (11:43)
[2022-11-09] MEDS ORDERED: METHOTREXATE 2.5 MG TAB PO SCH (10:00)
== END 2022-11-04 13:30 | disposition home or self-care (01) | DRG 287 ==
LOC: CATH 08:48 → TELE 11:36 → TELE-EAST 16:47
PROVIDERS: ADMIT Internal Medicine Cardiovascular Disease; ATTEND Internal Medicine Cardiovascular Disease
PROC: 4A023N7 Measurement of Cardiac Sampling and Pressure, Left Heart, Percutaneous Approach (ICD-10-PCS; principal; 2022-11-03)
PROC: B211YZZ Fluoroscopy of Multiple Coronary Arteries using Other Contrast (ICD-10-PCS; 2022-11-03)
PROC: B41FYZZ Fluoroscopy of Right Lower Extremity Arteries using Other Contrast (ICD-10-PCS; 2022-11-03)
PROC: B215YZZ Fluoroscopy of Left Heart using Other Contrast (ICD-10-PCS; 2022-11-03)
DX: I11.0 Hypertensive heart disease with heart failure (principal); I25.10 Atherosclerotic heart disease of native coronary artery without angina pectoris; I50.20 Unspecified systolic (congestive) heart failure; E78.5 Hyperlipidemia, unspecified; I70.0 Atherosclerosis of aorta; Z79.01 Long term (current) use of anticoagulants; Z86.11 Personal history of tuberculosis; Z87.891 Personal history of nicotine dependence; Z95.5 Presence of coronary angioplasty implant and graft
CPT/HCPCS: 36415; 71045; 75710; 80048; 80053; 81001; 85025; 85610; 85730; 86850; 86900; 86901; 93458; 99152; G0378; J2250

== ENCOUNTER 2022-11-26 14:23 | Inpatient (IN) | payer MEDICARE, OTHER ==
[~2022-11-26] VITALS: Ht 170.2 cm; Wt 77.5 kg
[~2022-11-26 14:23] MED LIST changes: -CLON0.5T10 PO; +CLON0.5T4 PO; -DULO60CA PO; +DULO60CA41 PO; +FOLI-119 PO; -FOLI1TAB6 PO; -GLUC500T48 PO; -HYDR-2595 PO; -LANS30CA57 PO; -LOSA50TA30 PO; -OME20T PO
[2022-11-26] MEDS ORDERED: HYDROmorphone HCL 2 MG/ML VL/or syr IV ONE ×4 (15:15→22:15)
[2022-11-26 15:36] LABS: Basophils # (auto) 0.1 10 ^3/uL (0-0.2); Basophils % (auto) 0.4 % (0.0-2.0); Eosinophils # (auto) 0 10 ^3/uL (0-0.8); Eosinophils % (auto) 0.3 % (0.0-7.0); Hematocrit 43.8 % (41.0-53.0); Hemoglobin 15.2 g/dL (13.5-17.5); Lymphocytes # (auto) 1.4 10 ^3/uL (0.4-5.4); Lymphocytes % (auto) 8.6 % (10.0-50.0); Mean Corpuscular Hemoglobin 31.7 pg (28.0-32.0); Mean Corpuscular Hgb Conc. 34.7 g/dL (32.0-36.0); Mean Corpuscular Volume 91.3 fL (80.0-100.0); Monocytes # (auto) 0.9 10 ^3/uL (0-1.3); Monocytes % (auto) 5.6 % (0.0-12.0); Neutrophils # (auto) 14.1 10 ^3/uL (1.6-8.6); Neutrophils % (auto) 85.1 % (37.0-80.0); Nucleated Red Blood Cells % 0.3 %; Red Cell Distribution Width 15.4 % (11.8-14.3); White Blood Cell 16.6 10^3/uL (4.4-10.8)
[2022-11-26 15:55] LABS: Albumin 3.8 g/dL (3.4-5.0); Calcium 8.8 mg/dL (8.5-10.1); Potassium 3.9 mmol/L (3.5-5.1)
[2022-11-26 15:57] LABS: BUN/Creatinine Ratio 16.8 (10.0-20.0); Bilirubin, Total 1.8 mg/dL (0.2-1.0); Total Protein 7.1 g/dL (6.4-8.2)
[2022-11-26 16:37] LABS: Urine Bacteria NONE SEEN /hpf (None Seen); Urine Blood Negative /uL (Negative); Urine Specific Gravity 1.012 (1.001-1.035); Urine WBC 2 /hpf (0 - 3)
[2022-11-26] MEDS ORDERED: cefTRIAXone 1GM/50ML D5W 50 ML IV ONE (19:15)
[2022-11-26] MEDS ORDERED: metroNIDAZOLE 500MG/100ML 100 ML IV ONE (19:15)
[2022-11-26] MEDS ORDERED: DOCUSATE SOD 100 MG CAP PO PRN (22:45)
[2022-11-26] MEDS ORDERED: ONDANSETRON HCL 4 MG/2 ML VIAL IV PRN (22:45)
[2022-11-26] MEDS ORDERED: ACETAMINOPHEN 325 MG TAB PO PRN (22:45)
[2022-11-26] MEDS ORDERED: MORPHINE SULFATE INJ 2 MG/ml SYRG IV PRN ×2 (22:45→23:15)
[2022-11-26] MEDS ORDERED: NITROGLYCERIN 0.4 MG SL TAB SL PRN (23:15)
[2022-11-27] MEDS: hydrALAZINE HCL 20 MG/ML VL IV PRN ×2 (02:01→13:57)
[2022-11-27] MEDS: HYDROcodone-ACET 5/325MG TAB PO PRN (02:54)
[2022-11-27 03:59] LABS: Basophils # (auto) 0.1 10 ^3/uL (0-0.2); Basophils % (auto) 0.6 % (0.0-2.0); Eosinophils # (auto) 0.2 10 ^3/uL (0-0.8); Hematocrit 43.4 % (41.0-53.0); Hemoglobin 14.8 g/dL (13.5-17.5); Lymphocytes % (auto) 11.4 % (10.0-50.0); Mean Corpuscular Hemoglobin 31.7 pg (28.0-32.0); Mean Corpuscular Hgb Conc. 34.2 g/dL (32.0-36.0); Mean Corpuscular Volume 92.8 fL (80.0-100.0); Monocytes # (auto) 1.1 10 ^3/uL (0-1.3); Monocytes % (auto) 6.4 % (0.0-12.0); Neutrophils # (auto) 14.1 10 ^3/uL (1.6-8.6); Neutrophils % (auto) 80.6 % (37.0-80.0); Nucleated Red Blood Cells % 0.1 %; Red Blood Cells 4.68 10^6/uL (4.5-5.90); Red Cell Distribution Width 15.4 % (11.8-14.3); White Blood Cell 17.5 10^3/uL (4.4-10.8)
[2022-11-27 04:11] LABS: Potassium 3.3 mmol/L (3.5-5.1)
[2022-11-27 04:17] LABS: Albumin 3.5 g/dL (3.4-5.0); BUN/Creatinine Ratio 20.6 (10.0-20.0); Bilirubin, Total 1.8 mg/dL (0.2-1.0); Calcium 8.2 mg/dL (8.5-10.1); Total Protein 7.4 g/dL (6.4-8.2)
[2022-11-27 04:18] VITALS: BP 149/72
[2022-11-27] MEDS ORDERED: MORPHINE SULFATE INJ 2 MG/ml SYRG IV ONE (04:45)
[2022-11-27] MEDS: HYDROmorphone HCL 2 MG/ML VL/or syr IV PRN ×4 (06:46→19:56)
[2022-11-27 08:15] VITALS: BP 151/83
[2022-11-27] MEDS: cefTRIAXone 1GM/50ML D5W 50 ML IV SCH (08:35)
[2022-11-27 09:00] VITALS: BP 151/83
[2022-11-27] MEDS: ENOXAPARIN SOD 40 MG/0.4 ML SYRINGE SC SCH (10:05)
[2022-11-27] MEDS: FAMOTIDINE (10MG/ML) 2ML VL IV SCH ×2 (10:05→21:45)
[2022-11-27] MEDS ORDERED: POTASSIUM CHL 20MEQ/100ML 100 ML IV ONE (10:45)
[2022-11-27 13:00] VITALS: BP 163/92
[2022-11-27] MEDS: SODIUM CHLORIDE 0.9% 1,000 ML IV SCH ×2 (15:25)
[2022-11-27 17:18] VITALS: BP 124/86
[2022-11-27 22:00] VITALS: BP 142/78
[2022-11-28] MEDS: HYDROmorphone HCL 2 MG/ML VL/or syr IV PRN ×9 (00:23→23:50)
[2022-11-28 05:00] VITALS: BP 125/83
[2022-11-28] MEDS: SODIUM CHLORIDE 0.9% 1,000 ML IV SCH ×2 (06:39→16:53)
[2022-11-28] MEDS: ENOXAPARIN SOD 40 MG/0.4 ML SYRINGE SC SCH (08:55)
[2022-11-28 09:00] VITALS: BP 144/81
[2022-11-28] MEDS: cefTRIAXone 1GM/50ML D5W 50 ML IV SCH (09:05)
[2022-11-28] MEDS: FAMOTIDINE (10MG/ML) 2ML VL IV SCH (09:05)
[2022-11-28] MEDS ORDERED: ETOMIDATE (2MG/ML) 20ML VIAL IV ONE (10:32)
[2022-11-28] MEDS ORDERED: SODIUM CHLORIDE LOCK 10 ML ONE (10:32)
[2022-11-28] MEDS ORDERED: fentaNYL CITRATE 100 MCG/2 ML VL ONE (10:32)
[2022-11-28] MEDS ORDERED: MIDAZOLAM HCL 2MG/2ML 2ml VIAL (1mg/ml) ONE (10:32)
[2022-11-28] MEDS ORDERED: DexAMETHasone SOD PHOS 10MG/1ML VIAL INJ ONE (10:32)
[2022-11-28] MEDS ORDERED: MORPHINE SULF PF 5 MG/10 ML VIAL ONE (10:32)
[2022-11-28] MEDS ORDERED: ROCURONIUM 10MG/ML 10ML VIAL IV ONE (10:32)
[2022-11-28] MEDS ORDERED: ONDANSETRON HCL 4 MG/2 ML VIAL ONE (10:32)
[2022-11-28] MEDS ORDERED: METOCLOPRAMIDE HCL 5MG/ml INJ 2ml VIAL IV PRN (10:45)
[2022-11-28] MEDS ORDERED: MORPHINE SULFATE INJ 2 MG/ml SYRG IV PRN (10:45)
[2022-11-28] MEDS ORDERED: HYDROmorphone HCL 2 MG/ML VL/or syr IV PRN (10:45)
[2022-11-28] MEDS ORDERED: ceFAZolin 1GM/50ML 100 ML IV ONE (10:49)
[2022-11-28] MEDS ORDERED: TRANEXAMIC ACID 10 ML ONE (11:19)
[2022-11-28] MEDS ORDERED: LACTATED RINGER'S 1,000 ML IV SCH (12:15)
[2022-11-28] MEDS ORDERED: ACETAMINOPHEN IV 1000 MG/100ML (10MG/ML) IV PRN (13:45)
[2022-11-28] MEDS ORDERED: SUCCINYLCHOLINE CHLORIDE 20 MG/ML 10ML VIAL IV ONE (15:06)
[2022-11-28] MEDS ORDERED: fentaNYL CITRATE 100 MCG/2 ML VL IV ONE (15:06)
[2022-11-28] MEDS ORDERED: metroNIDAZOLE 500MG/100ML 100 ML IV ONE (15:30)
[2022-11-28] MEDS: ceFAZolin 2 GM/D5W100ml 100 ML IV SCH ×2 (16:41→23:48)
[2022-11-28] MEDS: SODIUM CHLOR 0.9% PF (SALINE LOCK) 10ML VIAL/SYR IV SCH ×2 (16:41→22:00)
[2022-11-28 17:00] VITALS: BP 110/59
[2022-11-28] MEDS: metroNIDAZOLE 500MG/100ML 100 ML IV SCH (21:38)
[2022-11-28 22:00] VITALS: BP 126/77
[2022-11-29] MEDS: HYDROcodone-ACET 10/325MG TAB PO PRN (02:58)
[2022-11-29] MEDS: HYDROmorphone HCL 2 MG/ML VL/or syr IV PRN ×5 (03:50→22:32)
[2022-11-29 05:00] VITALS: BP 119/66
[2022-11-29] MEDS: SODIUM CHLOR 0.9% PF (SALINE LOCK) 10ML VIAL/SYR IV SCH ×3 (05:44→21:57)
[2022-11-29] MEDS: metroNIDAZOLE 500MG/100ML 100 ML IV SCH ×3 (05:44→21:44)
[2022-11-29 06:07] LABS: Basophils # (auto) 0.1 10 ^3/uL (0-0.2); Basophils % (auto) 0.5 % (0.0-2.0); Eosinophils # (auto) 0.2 10 ^3/uL (0-0.8); Eosinophils % (auto) 2.3 % (0.0-7.0); Hematocrit 35.4 % (41.0-53.0); Hemoglobin 12.4 g/dL (13.5-17.5); Lymphocytes # (auto) 1.4 10 ^3/uL (0.4-5.4); Lymphocytes % (auto) 13.3 % (10.0-50.0); Mean Corpuscular Hemoglobin 32.4 pg (28.0-32.0); Mean Corpuscular Volume 92.4 fL (80.0-100.0); Monocytes # (auto) 1.1 10 ^3/uL (0-1.3); Monocytes % (auto) 10.9 % (0.0-12.0); Neutrophils # (auto) 7.7 10 ^3/uL (1.6-8.6); Red Blood Cells 3.83 10^6/uL (4.5-5.90); Red Cell Distribution Width 15.1 % (11.8-14.3); White Blood Cell 10.5 10^3/uL (4.4-10.8)
[2022-11-29 06:29] LABS: BUN/Creatinine Ratio 21.3 (10.0-20.0); Calcium 8.1 mg/dL (8.5-10.1)
[2022-11-29 08:20] VITALS: BP 124/70
[2022-11-29] MEDS: cefTRIAXone 1GM/50ML D5W 50 ML IV SCH (08:20)
[2022-11-29 08:45] VITALS: BP 95/56
[2022-11-29] MEDS: ENOXAPARIN SOD 40 MG/0.4 ML SYRINGE SC SCH (09:15)
[2022-11-29] MEDS: SODIUM CHLORIDE 0.9% 1,000 ML IV SCH (12:06)
[2022-11-29 13:00] VITALS: BP 120/60
[2022-11-29 17:00] VITALS: BP 137/68
[2022-11-29 22:00] VITALS: BP 112/58
[2022-11-30] MEDS: HYDROmorphone HCL 2 MG/ML VL/or syr IV PRN ×5 (02:42→21:42)
[2022-11-30 05:00] VITALS: BP 136/74
[2022-11-30] MEDS: SODIUM CHLOR 0.9% PF (SALINE LOCK) 10ML VIAL/SYR IV SCH ×3 (06:29→21:38)
[2022-11-30] MEDS: metroNIDAZOLE 500MG/100ML 100 ML IV SCH ×3 (06:29→21:38)
[2022-11-30 08:20] VITALS: BP 158/73
[2022-11-30 09:00] VITALS: BP 158/73
[2022-11-30] MEDS: ENOXAPARIN SOD 40 MG/0.4 ML SYRINGE SC SCH (10:10)
[2022-11-30] MEDS: cefTRIAXone 1GM/50ML D5W 50 ML IV SCH (10:10)
[2022-11-30] MEDS ORDERED: TRAM50TA2 PO (11:57)
[2022-11-30] MEDS ORDERED: POTA-264 (11:59)
[2022-11-30] MEDS ORDERED: LEVO50TA7 PO (12:00)
[2022-11-30] MEDS: SODIUM CHLORIDE 0.9% 1,000 ML IV SCH (14:09)
[2022-11-30] MEDS: HYDROcodone-ACET 10/325MG TAB PO PRN (15:14)
[2022-11-30 17:00] VITALS: BP 138/61
[2022-11-30] MEDS: METHOTREXATE 2.5 MG TAB PO SCH (19:00)
[2022-11-30] MEDS: FAMOTIDINE 20 MG TAB PO SCH (21:38)
[2022-11-30 22:00] VITALS: BP 145/72
[2022-12-01] MEDS: HYDROcodone-ACET 10/325MG TAB PO PRN (00:28)
[2022-12-01] MEDS: HYDROmorphone HCL 2 MG/ML VL/or syr IV PRN ×5 (01:48→19:10)
[2022-12-01] MEDS: SODIUM CHLORIDE 0.9% 1,000 ML IV SCH ×2 (02:45→19:25)
[2022-12-01 05:00] VITALS: BP 134/78
[2022-12-01] MEDS: metroNIDAZOLE 500MG/100ML 100 ML IV SCH ×3 (05:58→21:36)
[2022-12-01] MEDS: LEVOTHYROXINE SODIUM 50 MCG TAB PO SCH (05:58)
[2022-12-01] MEDS: SODIUM CHLOR 0.9% PF (SALINE LOCK) 10ML VIAL/SYR IV SCH ×3 (05:58→21:36)
[2022-12-01 08:10] VITALS: BP 150/84
[2022-12-01 08:34] VITALS: BP 150/84
[2022-12-01] MEDS: cefTRIAXone 1GM/50ML D5W 50 ML IV SCH (09:17)
[2022-12-01] MEDS: POTASSIUM CHL 10 Meq TABLET PO SCH (10:34)
[2022-12-01] MEDS: FOLIC ACID 1 MG TAB PO SCH (10:34)
[2022-12-01] MEDS: DULoxetine HCL 30 MG CAP PO SCH (10:34)
[2022-12-01] MEDS: FAMOTIDINE 20 MG TAB PO SCH ×2 (10:34→21:36)
[2022-12-01] MEDS: MAGNESIUM OXIDE 400 MG TAB PO SCH (10:34)
[2022-12-01] MEDS: predniSONE 5 MG TAB PO SCH (10:34)
[2022-12-01] MEDS: CHOLECALCIFEROL (VITD3) 1,000UNIT=25mCg TAB PO SCH (10:35)
[2022-12-01] MEDS: ENOXAPARIN SOD 40 MG/0.4 ML SYRINGE SC SCH (10:35)
[2022-12-01 13:00] VITALS: BP 142/75
[2022-12-01 16:49] VITALS: BP 158/82
[2022-12-01 22:00] VITALS: BP 152/89
[2022-12-02] MEDS: HYDROmorphone HCL 2 MG/ML VL/or syr IV PRN ×5 (04:27→20:36)
[2022-12-02 05:00] VITALS: BP 102/66
[2022-12-02] MEDS: LEVOTHYROXINE SODIUM 50 MCG TAB PO SCH (06:47)
[2022-12-02] MEDS: SODIUM CHLOR 0.9% PF (SALINE LOCK) 10ML VIAL/SYR IV SCH ×3 (06:47→22:19)
[2022-12-02] MEDS: metroNIDAZOLE 500MG/100ML 100 ML IV SCH ×3 (06:47→22:18)
[2022-12-02] MEDS: cefTRIAXone 1GM/50ML D5W 50 ML IV SCH (08:57)
[2022-12-02] MEDS: HYDROcodone-ACET 10/325MG TAB PO PRN ×2 (08:57→19:31)
[2022-12-02 09:26] VITALS: BP 168/76
[2022-12-02] MEDS: CHOLECALCIFEROL (VITD3) 1,000UNIT=25mCg TAB PO SCH (09:46)
[2022-12-02] MEDS: FOLIC ACID 1 MG TAB PO SCH (09:46)
[2022-12-02] MEDS: ENOXAPARIN SOD 40 MG/0.4 ML SYRINGE SC SCH (09:46)
[2022-12-02] MEDS: DULoxetine HCL 30 MG CAP PO SCH (09:46)
[2022-12-02] MEDS: FAMOTIDINE 20 MG TAB PO SCH ×2 (09:46→22:17)
[2022-12-02] MEDS: POTASSIUM CHL 10 Meq TABLET PO SCH (09:47)
[2022-12-02] MEDS: predniSONE 5 MG TAB PO SCH (09:47)
[2022-12-02] MEDS: MAGNESIUM OXIDE 400 MG TAB PO SCH (09:47)
[2022-12-02] MEDS: SODIUM CHLORIDE 0.9% 1,000 ML IV SCH ×2 (12:33→19:39)
[2022-12-02 13:10] VITALS: BP 157/81
[2022-12-02 17:01] VITALS: BP 142/78
[2022-12-02 22:00] VITALS: BP 133/67
[2022-12-03] MEDS: HYDROmorphone HCL 2 MG/ML VL/or syr IV PRN ×5 (02:21→22:07)
[2022-12-03 05:00] VITALS: BP 152/85
[2022-12-03] MEDS: LEVOTHYROXINE SODIUM 50 MCG TAB PO SCH (06:10)
[2022-12-03] MEDS: SODIUM CHLOR 0.9% PF (SALINE LOCK) 10ML VIAL/SYR IV SCH ×2 (06:11→14:13)
[2022-12-03] MEDS: metroNIDAZOLE 500MG/100ML 100 ML IV SCH ×3 (06:11→21:54)
[2022-12-03] MEDS: cefTRIAXone 1GM/50ML D5W 50 ML IV SCH (08:30)
[2022-12-03 09:20] VITALS: BP 157/87
[2022-12-03] MEDS: DULoxetine HCL 30 MG CAP PO SCH (09:49)
[2022-12-03] MEDS: POTASSIUM CHL 10 Meq TABLET PO SCH (09:49)
[2022-12-03] MEDS: MAGNESIUM OXIDE 400 MG TAB PO SCH (09:49)
[2022-12-03] MEDS: FAMOTIDINE 20 MG TAB PO SCH ×2 (09:49→21:55)
[2022-12-03] MEDS: FOLIC ACID 1 MG TAB PO SCH (09:49)
[2022-12-03] MEDS: ENOXAPARIN SOD 40 MG/0.4 ML SYRINGE SC SCH (09:49)
[2022-12-03] MEDS: predniSONE 5 MG TAB PO SCH (09:49)
[2022-12-03] MEDS: HYDROcodone-ACET 10/325MG TAB PO PRN (09:50)
[2022-12-03] MEDS: CHOLECALCIFEROL (VITD3) 1,000UNIT=25mCg TAB PO SCH (09:50)
[2022-12-03 13:11] VITALS: BP 147/80
[2022-12-03] MEDS: clonazePAM 0.5 MG TAB PO PRN (14:12)
[2022-12-03 16:53] VITALS: BP 154/78
[2022-12-03 22:00] VITALS: BP 145/78
[2022-12-04] MEDS: HYDROmorphone HCL 2 MG/ML VL/or syr IV PRN ×5 (02:15→21:34)
[2022-12-04 05:00] VITALS: BP 160/93
[2022-12-04] MEDS: hydrALAZINE HCL 20 MG/ML VL IV PRN (05:01)
[2022-12-04] MEDS: metroNIDAZOLE 500MG/100ML 100 ML IV SCH ×3 (05:19→21:34)
[2022-12-04] MEDS: HYDROcodone-ACET 10/325MG TAB PO PRN ×2 (05:19→06:35)
[2022-12-04] MEDS: LEVOTHYROXINE SODIUM 50 MCG TAB PO SCH (08:23)
[2022-12-04 08:58] VITALS: BP 147/80
[2022-12-04] MEDS: cefTRIAXone 1GM/50ML D5W 50 ML IV SCH (09:33)
[2022-12-04] MEDS: DULoxetine HCL 30 MG CAP PO SCH (09:56)
[2022-12-04] MEDS: FAMOTIDINE 20 MG TAB PO SCH ×2 (09:57→21:34)
[2022-12-04] MEDS: FOLIC ACID 1 MG TAB PO SCH (09:57)
[2022-12-04] MEDS: CHOLECALCIFEROL (VITD3) 1,000UNIT=25mCg TAB PO SCH (09:57)
[2022-12-04] MEDS: predniSONE 5 MG TAB PO SCH (09:57)
[2022-12-04] MEDS: MAGNESIUM OXIDE 400 MG TAB PO SCH (09:57)
[2022-12-04] MEDS: POTASSIUM CHL 10 Meq TABLET PO SCH (10:00)
[2022-12-04] MEDS: clonazePAM 0.5 MG TAB PO PRN (10:17)
[2022-12-04] MEDS: ENOXAPARIN SOD 40 MG/0.4 ML SYRINGE SC SCH (10:17)
[2022-12-04] MEDS: SODIUM CHLORIDE 0.9% 1,000 ML IV SCH ×2 (12:59→14:05)
[2022-12-04 13:00] VITALS: BP 140/68
[2022-12-04 16:44] VITALS: BP 150/87
[2022-12-04] MEDS: SODIUM CHLOR 0.9% PF (SALINE LOCK) 10ML VIAL/SYR IV SCH ×2 (21:34→21:38)
[2022-12-04 22:00] VITALS: BP 158/83
[2022-12-05] MEDS: HYDROmorphone HCL 2 MG/ML VL/or syr IV PRN ×5 (02:02→19:46)
[2022-12-05 05:00] VITALS: BP 148/92
[2022-12-05] MEDS: SODIUM CHLOR 0.9% PF (SALINE LOCK) 10ML VIAL/SYR IV SCH ×3 (06:00→21:47)
[2022-12-05 06:19] LABS: Basophils # (auto) 0.1 10 ^3/uL (0-0.2); Basophils % (auto) 0.9 % (0.0-2.0); Eosinophils # (auto) 0.1 10 ^3/uL (0-0.8); Eosinophils % (auto) 1.5 % (0.0-7.0); Hematocrit 36.9 % (41.0-53.0); Hemoglobin 12.7 g/dL (13.5-17.5); Lymphocytes # (auto) 1.5 10 ^3/uL (0.4-5.4); Lymphocytes % (auto) 17.3 % (10.0-50.0); Mean Corpuscular Hemoglobin 31.7 pg (28.0-32.0); Mean Corpuscular Hgb Conc. 34.4 g/dL (32.0-36.0); Mean Corpuscular Volume 92.1 fL (80.0-100.0); Monocytes # (auto) 1.1 10 ^3/uL (0-1.3); Monocytes % (auto) 12.7 % (0.0-12.0); Neutrophils # (auto) 5.9 10 ^3/uL (1.6-8.6); Neutrophils % (auto) 67.6 % (37.0-80.0); Nucleated Red Blood Cells % 0.1 %; Red Cell Distribution Width 15.1 % (11.8-14.3); White Blood Cell 8.7 10^3/uL (4.4-10.8)
[2022-12-05] MEDS: LEVOTHYROXINE SODIUM 50 MCG TAB PO SCH (06:34)
[2022-12-05] MEDS: metroNIDAZOLE 500MG/100ML 100 ML IV SCH ×3 (06:34→21:47)
[2022-12-05 06:35] LABS: Potassium 3.8 mmol/L (3.5-5.1)
[2022-12-05 06:39] LABS: BUN/Creatinine Ratio 18.4 (10.0-20.0); Calcium 8.2 mg/dL (8.5-10.1)
[2022-12-05] MEDS: SODIUM CHLORIDE 0.9% 1,000 ML IV SCH (06:45)
[2022-12-05 06:50] LABS: INR 1.08 (0.9-1.15); Partial Thromboplastin Time 28.5 sec (24.6-33.4)
[2022-12-05 08:00] VITALS: BP 150/89
[2022-12-05 09:00] VITALS: BP 150/89
[2022-12-05] MEDS: cefTRIAXone 1GM/50ML D5W 50 ML IV SCH (09:22)
[2022-12-05] MEDS: FAMOTIDINE 20 MG TAB PO SCH ×2 (09:24→21:46)
[2022-12-05] MEDS: ENOXAPARIN SOD 40 MG/0.4 ML SYRINGE SC SCH (09:24)
[2022-12-05] MEDS: POTASSIUM CHL 10 Meq TABLET PO SCH (09:25)
[2022-12-05] MEDS: DULoxetine HCL 30 MG CAP PO SCH (09:26)
[2022-12-05] MEDS: predniSONE 5 MG TAB PO SCH (09:26)
[2022-12-05] MEDS: CHOLECALCIFEROL (VITD3) 1,000UNIT=25mCg TAB PO SCH (09:27)
[2022-12-05] MEDS ORDERED: IOHEXOL 300 MG/ML 100ML BOTTLE IJ ONE (09:28)
[2022-12-05] MEDS: MAGNESIUM OXIDE 400 MG TAB PO SCH (09:28)
[2022-12-05] MEDS: FOLIC ACID 1 MG TAB PO SCH (09:28)
[2022-12-05 13:00] VITALS: BP 148/80
[2022-12-05] MEDS ORDERED: LACTULOSE 20Gm/30ML SOLN PO ONE (14:00)
[2022-12-05 17:00] VITALS: BP 150/86
[2022-12-05] MEDS: HYDROcodone-ACET 5/325MG TAB PO PRN (21:45)
[2022-12-05 22:00] VITALS: BP 134/76
[2022-12-06] MEDS: HYDROmorphone HCL 2 MG/ML VL/or syr IV PRN ×2 (00:36→06:22)
[2022-12-06 05:00] VITALS: BP 163/89
[2022-12-06] MEDS: SODIUM CHLOR 0.9% PF (SALINE LOCK) 10ML VIAL/SYR IV SCH ×3 (06:15→21:15)
[2022-12-06] MEDS: metroNIDAZOLE 500MG/100ML 100 ML IV SCH ×3 (06:15→21:14)
[2022-12-06] MEDS: LEVOTHYROXINE SODIUM 50 MCG TAB PO SCH (06:15)
[2022-12-06] MEDS: SODIUM CHLORIDE 0.9% 1,000 ML IV SCH ×2 (06:22→16:14)
[2022-12-06 08:00] VITALS: BP 153/68
[2022-12-06] MEDS: cefTRIAXone 1GM/50ML D5W 50 ML IV SCH (08:44)
[2022-12-06] MEDS: ENOXAPARIN SOD 40 MG/0.4 ML SYRINGE SC SCH (08:45)
[2022-12-06] MEDS: DULoxetine HCL 30 MG CAP PO SCH (08:46)
[2022-12-06] MEDS: FOLIC ACID 1 MG TAB PO SCH (08:46)
[2022-12-06] MEDS: MAGNESIUM OXIDE 400 MG TAB PO SCH (08:47)
[2022-12-06] MEDS: FAMOTIDINE 20 MG TAB PO SCH ×2 (08:48→21:13)
[2022-12-06] MEDS: predniSONE 5 MG TAB PO SCH (08:48)
[2022-12-06] MEDS: CHOLECALCIFEROL (VITD3) 1,000UNIT=25mCg TAB PO SCH (08:48)
[2022-12-06] MEDS: POTASSIUM CHL 10 Meq TABLET PO SCH (08:49)
[2022-12-06] MEDS: HYDROcodone-ACET 10/325MG TAB PO PRN ×3 (08:57→20:58)
[2022-12-06 09:00] VITALS: BP 153/68
[2022-12-06 13:00] VITALS: BP 124/62
[2022-12-06] MEDS: METOCLOPRAMIDE HCL 5MG/ml INJ 2ml VIAL IV SCH ×2 (16:13→21:14)
[2022-12-06 17:00] VITALS: BP 140/80
[2022-12-06 17:12] LABS: Urine Bacteria NONE SEEN /hpf (None Seen); Urine Blood Negative /uL (Negative); Urine Specific Gravity 1.014 (1.001-1.035); Urine WBC <1 /hpf (0 - 3)
[2022-12-06] MEDS: DOCUSATE SOD 100 MG CAP PO SCH (21:23)
[2022-12-06 21:43] VITALS: BP 144/73
[2022-12-07] MEDS: HYDROcodone-ACET 10/325MG TAB PO PRN ×4 (02:47→18:36)
[2022-12-07 04:36] VITALS: BP 144/86
[2022-12-07] MEDS: METOCLOPRAMIDE HCL 5MG/ml INJ 2ml VIAL IV SCH ×3 (05:54→21:20)
[2022-12-07] MEDS: metroNIDAZOLE 500MG/100ML 100 ML IV SCH ×3 (05:55→21:21)
[2022-12-07] MEDS: SODIUM CHLORIDE 0.9% 1,000 ML IV SCH (06:04)
[2022-12-07] MEDS: SODIUM CHLOR 0.9% PF (SALINE LOCK) 10ML VIAL/SYR IV SCH ×3 (06:04→21:26)
[2022-12-07] MEDS: LEVOTHYROXINE SODIUM 50 MCG TAB PO SCH (06:52)
[2022-12-07 08:00] VITALS: BP 147/75
[2022-12-07] MEDS: cefTRIAXone 1GM/50ML D5W 50 ML IV SCH (08:10)
[2022-12-07] MEDS: FAMOTIDINE 20 MG TAB PO SCH ×2 (08:10→21:20)
[2022-12-07] MEDS: POTASSIUM CHL 10 Meq TABLET PO SCH (08:11)
[2022-12-07] MEDS: DULoxetine HCL 30 MG CAP PO SCH (08:11)
[2022-12-07] MEDS: DOCUSATE SOD 100 MG CAP PO SCH ×2 (08:11→21:27)
[2022-12-07] MEDS: CHOLECALCIFEROL (VITD3) 1,000UNIT=25mCg TAB PO SCH (08:12)
[2022-12-07] MEDS: MAGNESIUM OXIDE 400 MG TAB PO SCH (08:13)
[2022-12-07] MEDS: levoFLOXacin 500 MG TAB PO SCH (08:14)
[2022-12-07] MEDS: FOLIC ACID 1 MG TAB PO SCH (08:14)
[2022-12-07] MEDS: predniSONE 5 MG TAB PO SCH (08:14)
[2022-12-07] MEDS: ENOXAPARIN SOD 40 MG/0.4 ML SYRINGE SC SCH (08:15)
[2022-12-07 08:53] VITALS: BP 147/75
[2022-12-07 14:17] VITALS: BP 137/73
[2022-12-07 16:45] VITALS: BP 103/65
[2022-12-07] MEDS: METHOTREXATE 2.5 MG TAB PO SCH (18:36)
[2022-12-07] MEDS: clonazePAM 0.5 MG TAB PO PRN (21:20)
[2022-12-07 22:00] VITALS: BP 133/74
[2022-12-08] MEDS: HYDROcodone-ACET 10/325MG TAB PO PRN ×5 (01:02→22:36)
[2022-12-08] MEDS: SODIUM CHLORIDE 0.9% 1,000 ML IV SCH ×2 (01:25→18:05)
[2022-12-08 05:00] VITALS: BP 139/72
[2022-12-08] MEDS: metroNIDAZOLE 500MG/100ML 100 ML IV SCH ×2 (06:09→13:44)
[2022-12-08] MEDS: METOCLOPRAMIDE HCL 5MG/ml INJ 2ml VIAL IV SCH ×3 (06:09→22:34)
[2022-12-08] MEDS: LEVOTHYROXINE SODIUM 50 MCG TAB PO SCH (06:09)
[2022-12-08 06:12] LABS: INR 1.08 (0.9-1.15); Partial Thromboplastin Time 29.3 sec (24.6-33.4)
[2022-12-08] MEDS: SODIUM CHLOR 0.9% PF (SALINE LOCK) 10ML VIAL/SYR IV SCH ×3 (06:12→22:37)
[2022-12-08 06:16] LABS: Calcium 8.1 mg/dL (8.5-10.1); Potassium 3.5 mmol/L (3.5-5.1)
[2022-12-08 06:20] LABS: BUN/Creatinine Ratio 19.3 (10.0-20.0)
[2022-12-08 06:33] LABS: Basophils # (auto) 0.1 10 ^3/uL (0-0.2); Basophils % (auto) 0.8 % (0.0-2.0); Eosinophils # (auto) 0.2 10 ^3/uL (0-0.8); Eosinophils % (auto) 2.5 % (0.0-7.0); Hematocrit 35.9 % (41.0-53.0); Hemoglobin 12.5 g/dL (13.5-17.5); Lymphocytes # (auto) 1.3 10 ^3/uL (0.4-5.4); Lymphocytes % (auto) 18.8 % (10.0-50.0); Mean Corpuscular Hgb Conc. 34.9 g/dL (32.0-36.0); Mean Corpuscular Volume 91.8 fL (80.0-100.0); Monocytes # (auto) 0.9 10 ^3/uL (0-1.3); Monocytes % (auto) 13.4 % (0.0-12.0); Neutrophils # (auto) 4.3 10 ^3/uL (1.6-8.6); Neutrophils % (auto) 64.5 % (37.0-80.0); Nucleated Red Blood Cells % 0.2 %; Red Blood Cells 3.91 10^6/uL (4.5-5.90); Red Cell Distribution Width 15.1 % (11.8-14.3); White Blood Cell 6.6 10^3/uL (4.4-10.8)
[2022-12-08] MEDS: cefTRIAXone 1GM/50ML D5W 50 ML IV SCH (08:33)
[2022-12-08] MEDS: MAGNESIUM OXIDE 400 MG TAB PO SCH (08:34)
[2022-12-08] MEDS: FAMOTIDINE 20 MG TAB PO SCH ×2 (08:34→22:36)
[2022-12-08] MEDS: predniSONE 5 MG TAB PO SCH (08:35)
[2022-12-08] MEDS: FOLIC ACID 1 MG TAB PO SCH (08:35)
[2022-12-08] MEDS: DULoxetine HCL 30 MG CAP PO SCH (08:35)
[2022-12-08] MEDS: POTASSIUM CHL 10 Meq TABLET PO SCH (08:35)
[2022-12-08] MEDS: levoFLOXacin 500 MG TAB PO SCH (08:35)
[2022-12-08] MEDS: DOCUSATE SOD 100 MG CAP PO SCH ×2 (08:36→22:00)
[2022-12-08] MEDS: CHOLECALCIFEROL (VITD3) 1,000UNIT=25mCg TAB PO SCH (08:36)
[2022-12-08 09:00] VITALS: BP 162/76
[2022-12-08 13:00] VITALS: BP 134/77
[2022-12-08 22:00] VITALS: BP 137/74
[2022-12-08] MEDS: metroNIDAZOLE 500 MG TAB PO SCH (22:35)
[2022-12-09] VITALS (11 sets, daily range): BP systolic 114–164; BP diastolic 76–91
[2022-12-09] MEDS: clonazePAM 0.5 MG TAB PO PRN (01:59)
[2022-12-09] MEDS: HYDROcodone-ACET 10/325MG TAB PO PRN ×4 (04:34→23:52)
[2022-12-09] MEDS: LEVOTHYROXINE SODIUM 50 MCG TAB PO SCH (05:56)
[2022-12-09] MEDS: metroNIDAZOLE 500 MG TAB PO SCH ×3 (06:00→22:12)
[2022-12-09] MEDS: SODIUM CHLOR 0.9% PF (SALINE LOCK) 10ML VIAL/SYR IV SCH ×3 (06:03→22:13)
[2022-12-09] MEDS: METOCLOPRAMIDE HCL 5MG/ml INJ 2ml VIAL IV SCH ×3 (06:03→22:00)
[2022-12-09] MEDS: hydrALAZINE HCL 20 MG/ML VL IV PRN (06:56)
[2022-12-09] MEDS: DOCUSATE SOD 100 MG CAP PO SCH ×2 (09:37→22:00)
[2022-12-09] MEDS: DULoxetine HCL 30 MG CAP PO SCH (09:37)
[2022-12-09] MEDS: MAGNESIUM OXIDE 400 MG TAB PO SCH (09:38)
[2022-12-09] MEDS: FAMOTIDINE 20 MG TAB PO SCH ×2 (09:38→22:12)
[2022-12-09] MEDS: FOLIC ACID 1 MG TAB PO SCH (09:38)
[2022-12-09] MEDS: POTASSIUM CHL 10 Meq TABLET PO SCH (09:38)
[2022-12-09] MEDS: levoFLOXacin 500 MG TAB PO SCH (09:38)
[2022-12-09] MEDS: CHOLECALCIFEROL (VITD3) 1,000UNIT=25mCg TAB PO SCH (09:39)
[2022-12-09] MEDS: predniSONE 5 MG TAB PO SCH (09:39)
[2022-12-09] MEDS: SODIUM CHLORIDE 0.9% 1,000 ML IV SCH (10:59)
[2022-12-09] MEDS ORDERED: VANCOMYCIN HCL 1000 MG VL ONE (13:17)
[2022-12-09] MEDS ORDERED: MIDAZOLAM HCL 2MG/2ML 2ml VIAL (1mg/ml) ONE (13:18)
[2022-12-09] MEDS ORDERED: LIDOCAINE 2%HCL (LOCAL ANESTH.) INJ 20ML MDV ONE ×2 (13:18→14:19)
[2022-12-09] MEDS ORDERED: VANCOMYCIN 1GM/250ML 250 ML IV ONE (13:18)
[2022-12-09] MEDS ORDERED: fentaNYL CITRATE 100 MCG/2 ML VL ONE (13:18)
[2022-12-09] MEDS ORDERED: IODIXANOL 320MG/ML 100ML BTL IV ONE (14:19)
[2022-12-09] MEDS: ceFAZolin 1GM/50ML 50 ML IV SCH (19:00)
[2022-12-09 23:00] LABS: Calcium 8.2 mg/dL (8.5-10.1)
[2022-12-09 23:02] LABS: BUN/Creatinine Ratio 17.4 (10.0-20.0)
[2022-12-10] MEDS: clonazePAM 0.5 MG TAB PO PRN (01:01)
[2022-12-10] MEDS: ceFAZolin 1GM/50ML 50 ML IV SCH ×2 (02:54→10:45)
[2022-12-10] MEDS: SODIUM CHLORIDE 0.9% 1,000 ML IV SCH ×2 (03:25→20:05)
[2022-12-10 04:30] VITALS: BP 154/99
[2022-12-10] MEDS: metroNIDAZOLE 500 MG TAB PO SCH ×4 (05:55→21:49)
[2022-12-10] MEDS: HYDROcodone-ACET 10/325MG TAB PO PRN ×4 (05:55→20:58)
[2022-12-10] MEDS: METOCLOPRAMIDE HCL 5MG/ml INJ 2ml VIAL IV SCH ×3 (05:58→21:43)
[2022-12-10] MEDS: SODIUM CHLOR 0.9% PF (SALINE LOCK) 10ML VIAL/SYR IV SCH ×3 (05:58→21:50)
[2022-12-10] MEDS ORDERED: VANCOMYCIN 1GM/250ML 250 ML IV ONE (06:00)
[2022-12-10] MEDS: LEVOTHYROXINE SODIUM 50 MCG TAB PO SCH (06:04)
[2022-12-10 09:00] VITALS: BP 156/83
[2022-12-10] MEDS: DOCUSATE SOD 100 MG CAP PO SCH ×3 (10:00→21:49)
[2022-12-10] MEDS: predniSONE 5 MG TAB PO SCH (10:43)
[2022-12-10] MEDS: DULoxetine HCL 30 MG CAP PO SCH (10:43)
[2022-12-10] MEDS: FAMOTIDINE 20 MG TAB PO SCH ×3 (10:43→21:49)
[2022-12-10] MEDS: levoFLOXacin 500 MG TAB PO SCH (10:44)
[2022-12-10] MEDS: MAGNESIUM OXIDE 400 MG TAB PO SCH (10:44)
[2022-12-10] MEDS: POTASSIUM CHL 10 Meq TABLET PO SCH (10:44)
[2022-12-10] MEDS: CHOLECALCIFEROL (VITD3) 1,000UNIT=25mCg TAB PO SCH (10:44)
[2022-12-10] MEDS: FOLIC ACID 1 MG TAB PO SCH (10:44)
[2022-12-10 13:00] VITALS: BP 131/67
[2022-12-10 17:07] VITALS: BP 141/83
[2022-12-10 20:00] VITALS: BP 147/85
[2022-12-10 22:00] VITALS: BP_SYST 147; BP_SYST 156; BP_DIAS 85; BP_DIAS 86
[2022-12-11] MEDS: HYDROcodone-ACET 10/325MG TAB PO PRN ×5 (03:09→22:33)
[2022-12-11] MEDS: hydrALAZINE HCL 20 MG/ML VL IV PRN (05:50)
[2022-12-11] MEDS: SODIUM CHLOR 0.9% PF (SALINE LOCK) 10ML VIAL/SYR IV SCH ×3 (05:52→22:00)
[2022-12-11] MEDS: METOCLOPRAMIDE HCL 5MG/ml INJ 2ml VIAL IV SCH ×3 (06:00→22:33)
[2022-12-11] MEDS: LEVOTHYROXINE SODIUM 50 MCG TAB PO SCH (06:00)
[2022-12-11 09:00] VITALS: BP 138/8
[2022-12-11] MEDS: predniSONE 5 MG TAB PO SCH (11:05)
[2022-12-11] MEDS: FOLIC ACID 1 MG TAB PO SCH (11:05)
[2022-12-11] MEDS: CHOLECALCIFEROL (VITD3) 1,000UNIT=25mCg TAB PO SCH (11:06)
[2022-12-11] MEDS: DULoxetine HCL 30 MG CAP PO SCH (11:06)
[2022-12-11] MEDS: MAGNESIUM OXIDE 400 MG TAB PO SCH (11:06)
[2022-12-11] MEDS: POTASSIUM CHL 10 Meq TABLET PO SCH (11:06)
[2022-12-11] MEDS: levoFLOXacin 500 MG TAB PO SCH (11:06)
[2022-12-11] MEDS: SODIUM CHLORIDE 0.9% 1,000 ML IV SCH (12:45)
[2022-12-11] MEDS: metroNIDAZOLE 500 MG TAB PO SCH ×2 (14:27→22:33)
[2022-12-11 17:00] VITALS: BP 149/73
[2022-12-11 22:00] VITALS: BP 139/78
[2022-12-11] MEDS: DOCUSATE SOD 100 MG CAP PO SCH (22:33)
[2022-12-11] MEDS: FAMOTIDINE 20 MG TAB PO SCH (22:34)
[2022-12-12] MEDS: HYDROcodone-ACET 10/325MG TAB PO PRN ×5 (03:31→23:56)
[2022-12-12 05:00] VITALS: BP 156/73
[2022-12-12] MEDS: SODIUM CHLORIDE 0.9% 1,000 ML IV SCH ×2 (05:25→22:05)
[2022-12-12] MEDS: metroNIDAZOLE 500 MG TAB PO SCH ×3 (06:05→22:02)
[2022-12-12] MEDS: METOCLOPRAMIDE HCL 5MG/ml INJ 2ml VIAL IV SCH ×3 (06:05→22:02)
[2022-12-12] MEDS: SODIUM CHLOR 0.9% PF (SALINE LOCK) 10ML VIAL/SYR IV SCH ×3 (06:05→22:03)
[2022-12-12] MEDS: LEVOTHYROXINE SODIUM 50 MCG TAB PO SCH (06:05)
[2022-12-12 09:00] VITALS: BP 144/78
[2022-12-12] MEDS: DULoxetine HCL 30 MG CAP PO SCH (09:36)
[2022-12-12] MEDS: POTASSIUM CHL 10 Meq TABLET PO SCH (09:37)
[2022-12-12] MEDS: predniSONE 5 MG TAB PO SCH (09:37)
[2022-12-12] MEDS: MAGNESIUM OXIDE 400 MG TAB PO SCH (09:37)
[2022-12-12] MEDS: FAMOTIDINE 20 MG TAB PO SCH ×2 (09:38→22:02)
[2022-12-12] MEDS: levoFLOXacin 500 MG TAB PO SCH (09:38)
[2022-12-12] MEDS: CHOLECALCIFEROL (VITD3) 1,000UNIT=25mCg TAB PO SCH (09:38)
[2022-12-12] MEDS: FOLIC ACID 1 MG TAB PO SCH (09:39)
[2022-12-12] MEDS: DOCUSATE SOD 100 MG CAP PO SCH ×3 (09:42→22:02)
[2022-12-12 09:46] LABS: Basophils # (auto) 0.1 10 ^3/uL (0-0.2); Eosinophils # (auto) 0.3 10 ^3/uL (0-0.8); Eosinophils % (auto) 3.6 % (0.0-7.0); Hematocrit 37.7 % (41.0-53.0); Hemoglobin 12.7 g/dL (13.5-17.5); Lymphocytes # (auto) 1.6 10 ^3/uL (0.4-5.4); Lymphocytes % (auto) 21.8 % (10.0-50.0); Mean Corpuscular Hemoglobin 31.4 pg (28.0-32.0); Mean Corpuscular Hgb Conc. 33.8 g/dL (32.0-36.0); Mean Corpuscular Volume 92.8 fL (80.0-100.0); Monocytes # (auto) 0.7 10 ^3/uL (0-1.3); Monocytes % (auto) 9.9 % (0.0-12.0); Neutrophils # (auto) 4.6 10 ^3/uL (1.6-8.6); Neutrophils % (auto) 63.7 % (37.0-80.0); Nucleated Red Blood Cells % 0.1 %; Red Blood Cells 4.06 10^6/uL (4.5-5.90); Red Cell Distribution Width 15.1 % (11.8-14.3); White Blood Cell 7.2 10^3/uL (4.4-10.8)
[2022-12-12 10:14] LABS: BUN/Creatinine Ratio 21.4 (10.0-20.0); Calcium 8.1 mg/dL (8.5-10.1); Potassium 3.8 mmol/L (3.5-5.1)
[2022-12-12 13:00] VITALS: BP 147/71
[2022-12-12 17:00] VITALS: BP 126/69
[2022-12-12 22:00] VITALS: BP 123/73
[2022-12-12] MEDS: clonazePAM 0.5 MG TAB PO PRN (22:18)
[2022-12-13] MEDS: HYDROcodone-ACET 10/325MG TAB PO PRN ×5 (04:04→23:43)
[2022-12-13 05:00] VITALS: BP 128/80
[2022-12-13] MEDS: SODIUM CHLOR 0.9% PF (SALINE LOCK) 10ML VIAL/SYR IV SCH ×3 (06:11→22:25)
[2022-12-13] MEDS: metroNIDAZOLE 500 MG TAB PO SCH ×3 (06:11→22:13)
[2022-12-13] MEDS: METOCLOPRAMIDE HCL 5MG/ml INJ 2ml VIAL IV SCH ×3 (06:11→22:13)
[2022-12-13] MEDS: LEVOTHYROXINE SODIUM 50 MCG TAB PO SCH (06:11)
[2022-12-13] MEDS: DULoxetine HCL 30 MG CAP PO SCH (09:08)
[2022-12-13] MEDS: POTASSIUM CHL 10 Meq TABLET PO SCH (09:09)
[2022-12-13] MEDS: FOLIC ACID 1 MG TAB PO SCH (09:09)
[2022-12-13] MEDS: FAMOTIDINE 20 MG TAB PO SCH ×2 (09:09→22:13)
[2022-12-13] MEDS: DOCUSATE SOD 100 MG CAP PO SCH ×2 (09:10→22:00)
[2022-12-13] MEDS: CHOLECALCIFEROL (VITD3) 1,000UNIT=25mCg TAB PO SCH (09:10)
[2022-12-13] MEDS: MAGNESIUM OXIDE 400 MG TAB PO SCH (09:10)
[2022-12-13] MEDS: predniSONE 5 MG TAB PO SCH (09:10)
[2022-12-13] MEDS: levoFLOXacin 500 MG TAB PO SCH (09:10)
[2022-12-13 13:16] VITALS: BP 117/78
[2022-12-13 14:18] VITALS: BP 145/90
[2022-12-13] MEDS: SODIUM CHLORIDE 0.9% 1,000 ML IV SCH (14:45)
[2022-12-13 22:00] VITALS: BP 133/79
[2022-12-13] MEDS: clonazePAM 0.5 MG TAB PO PRN (22:13)
[2022-12-14] MEDS: HYDROcodone-ACET 10/325MG TAB PO PRN ×5 (04:31→22:29)
[2022-12-14 05:00] VITALS: BP 122/68
[2022-12-14] MEDS: LEVOTHYROXINE SODIUM 50 MCG TAB PO SCH (06:11)
[2022-12-14] MEDS: metroNIDAZOLE 500 MG TAB PO SCH ×3 (06:11→22:29)
[2022-12-14] MEDS: METOCLOPRAMIDE HCL 5MG/ml INJ 2ml VIAL IV SCH ×3 (06:11→22:30)
[2022-12-14] MEDS: SODIUM CHLOR 0.9% PF (SALINE LOCK) 10ML VIAL/SYR IV SCH ×3 (06:12→22:00)
[2022-12-14] MEDS: CHOLECALCIFEROL (VITD3) 1,000UNIT=25mCg TAB PO SCH (09:51)
[2022-12-14] MEDS: FAMOTIDINE 20 MG TAB PO SCH ×2 (09:51→22:29)
[2022-12-14] MEDS: levoFLOXacin 500 MG TAB PO SCH (09:51)
[2022-12-14] MEDS: predniSONE 5 MG TAB PO SCH (09:51)
[2022-12-14] MEDS: MAGNESIUM OXIDE 400 MG TAB PO SCH (09:51)
[2022-12-14] MEDS: FOLIC ACID 1 MG TAB PO SCH (09:52)
[2022-12-14] MEDS: POTASSIUM CHL 10 Meq TABLET PO SCH (09:52)
[2022-12-14] MEDS: DULoxetine HCL 30 MG CAP PO SCH (09:53)
[2022-12-14] MEDS: DOCUSATE SOD 100 MG CAP PO SCH ×2 (09:55→22:00)
[2022-12-14] MEDS: SODIUM CHLORIDE 0.9% 1,000 ML IV SCH (09:57)
[2022-12-14 10:32] VITALS: BP 144/73
[2022-12-14 16:52] VITALS: BP 130/70
[2022-12-14] MEDS: METHOTREXATE 2.5 MG TAB PO SCH (18:27)
[2022-12-14 20:00] VITALS: BP 131/78
[2022-12-14 22:00] VITALS: BP 131/78
[2022-12-15] MEDS: SODIUM CHLORIDE 0.9% 1,000 ML IV SCH ×2 (00:05→16:17)
[2022-12-15] MEDS: clonazePAM 0.5 MG TAB PO PRN (00:51)
[2022-12-15] MEDS: HYDROcodone-ACET 10/325MG TAB PO PRN ×5 (02:34→21:30)
[2022-12-15 05:00] VITALS: BP 137/81
[2022-12-15] MEDS: SODIUM CHLOR 0.9% PF (SALINE LOCK) 10ML VIAL/SYR IV SCH ×3 (06:00→22:00)
[2022-12-15] MEDS: metroNIDAZOLE 500 MG TAB PO SCH ×3 (06:35→22:04)
[2022-12-15] MEDS: LEVOTHYROXINE SODIUM 50 MCG TAB PO SCH (06:35)
[2022-12-15] MEDS: METOCLOPRAMIDE HCL 5MG/ml INJ 2ml VIAL IV SCH ×3 (06:35→22:03)
[2022-12-15 09:31] VITALS: BP 149/81
[2022-12-15] MEDS: DULoxetine HCL 30 MG CAP PO SCH (09:42)
[2022-12-15] MEDS: FOLIC ACID 1 MG TAB PO SCH (09:42)
[2022-12-15] MEDS: levoFLOXacin 500 MG TAB PO SCH (09:42)
[2022-12-15] MEDS: MAGNESIUM OXIDE 400 MG TAB PO SCH (09:42)
[2022-12-15] MEDS: FAMOTIDINE 20 MG TAB PO SCH ×2 (09:42→22:04)
[2022-12-15] MEDS: predniSONE 5 MG TAB PO SCH (09:42)
[2022-12-15] MEDS: CHOLECALCIFEROL (VITD3) 1,000UNIT=25mCg TAB PO SCH (09:42)
[2022-12-15] MEDS: POTASSIUM CHL 10 Meq TABLET PO SCH (09:43)
[2022-12-15] MEDS: DOCUSATE SOD 100 MG CAP PO SCH ×2 (10:00→22:00)
[2022-12-15 12:00] VITALS: BP 149/77
[2022-12-15 17:00] VITALS: BP 131/75
[2022-12-15 20:00] VITALS: BP 119/73
[2022-12-15 22:00] VITALS: BP 119/73
[2022-12-16] MEDS: clonazePAM 0.5 MG TAB PO PRN (01:11)
[2022-12-16] MEDS: HYDROcodone-ACET 10/325MG TAB PO PRN ×5 (01:32→20:28)
[2022-12-16 05:00] VITALS: BP 126/80
[2022-12-16] MEDS: metroNIDAZOLE 500 MG TAB PO SCH ×3 (05:51→20:28)
[2022-12-16] MEDS: METOCLOPRAMIDE HCL 5MG/ml INJ 2ml VIAL IV SCH ×3 (05:51→20:29)
[2022-12-16] MEDS: SODIUM CHLOR 0.9% PF (SALINE LOCK) 10ML VIAL/SYR IV SCH ×3 (06:00→20:30)
[2022-12-16] MEDS: LEVOTHYROXINE SODIUM 50 MCG TAB PO SCH (06:05)
[2022-12-16 08:00] VITALS: BP 119/73
[2022-12-16 09:00] VITALS: BP 158/83
[2022-12-16] MEDS: SODIUM CHLORIDE 0.9% 1,000 ML IV SCH (09:04)
[2022-12-16] MEDS: levoFLOXacin 500 MG TAB PO SCH (09:09)
[2022-12-16] MEDS: CHOLECALCIFEROL (VITD3) 1,000UNIT=25mCg TAB PO SCH (09:09)
[2022-12-16] MEDS: FOLIC ACID 1 MG TAB PO SCH (09:09)
[2022-12-16] MEDS: DULoxetine HCL 30 MG CAP PO SCH (09:10)
[2022-12-16] MEDS: POTASSIUM CHL 10 Meq TABLET PO SCH (09:10)
[2022-12-16] MEDS: MAGNESIUM OXIDE 400 MG TAB PO SCH (09:10)
[2022-12-16] MEDS: FAMOTIDINE 20 MG TAB PO SCH ×2 (09:10→20:28)
[2022-12-16] MEDS: predniSONE 5 MG TAB PO SCH (09:10)
[2022-12-16] MEDS: DOCUSATE SOD 100 MG CAP PO SCH ×2 (09:11→20:30)
[2022-12-16 13:00] VITALS: BP 126/69
[2022-12-16 15:20] LABS: Basophils # (auto) 0 10 ^3/uL (0-0.2); Basophils % (auto) 0.6 % (0.0-2.0); Eosinophils # (auto) 0.1 10 ^3/uL (0-0.8); Eosinophils % (auto) 1.6 % (0.0-7.0); Hemoglobin 12.4 g/dL (13.5-17.5); Lymphocytes # (auto) 1.1 10 ^3/uL (0.4-5.4); Lymphocytes % (auto) 14.1 % (10.0-50.0); Mean Corpuscular Hemoglobin 30.8 pg (28.0-32.0); Mean Corpuscular Hgb Conc. 33.6 g/dL (32.0-36.0); Mean Corpuscular Volume 91.8 fL (80.0-100.0); Monocytes # (auto) 0.6 10 ^3/uL (0-1.3); Monocytes % (auto) 7.4 % (0.0-12.0); Neutrophils # (auto) 5.8 10 ^3/uL (1.6-8.6); Neutrophils % (auto) 76.3 % (37.0-80.0); Nucleated Red Blood Cells % 0.1 %; Red Blood Cells 4.04 10^6/uL (4.5-5.90); White Blood Cell 7.6 10^3/uL (4.4-10.8)
[2022-12-16 15:45] LABS: Albumin 2.7 g/dL (3.4-5.0); Calcium 8.1 mg/dL (8.5-10.1); Potassium 4.1 mmol/L (3.5-5.1)
[2022-12-16 15:48] LABS: Bilirubin, Total 0.4 mg/dL (0.2-1.0); Total Protein 6.7 g/dL (6.4-8.2)
[2022-12-16 20:00] VITALS: BP 141/73
[2022-12-16 22:00] VITALS: BP 141/73
[2022-12-17] MEDS: clonazePAM 0.5 MG TAB PO PRN (00:02)
[2022-12-17] MEDS: SODIUM CHLORIDE 0.9% 1,000 ML IV SCH ×2 (02:24→18:29)
[2022-12-17 05:21] VITALS: BP 161/94
[2022-12-17] MEDS: metroNIDAZOLE 500 MG TAB PO SCH ×3 (05:53→20:28)
[2022-12-17] MEDS: LEVOTHYROXINE SODIUM 50 MCG TAB PO SCH (05:53)
[2022-12-17] MEDS: METOCLOPRAMIDE HCL 5MG/ml INJ 2ml VIAL IV SCH ×3 (05:54→20:28)
[2022-12-17] MEDS: SODIUM CHLOR 0.9% PF (SALINE LOCK) 10ML VIAL/SYR IV SCH ×3 (05:58→20:29)
[2022-12-17] MEDS: DULoxetine HCL 30 MG CAP PO SCH (08:03)
[2022-12-17] MEDS: hydrALAZINE HCL 20 MG/ML VL IV PRN (08:03)
[2022-12-17] MEDS: FAMOTIDINE 20 MG TAB PO SCH ×2 (08:08→20:27)
[2022-12-17] MEDS: predniSONE 5 MG TAB PO SCH (08:10)
[2022-12-17] MEDS: levoFLOXacin 500 MG TAB PO SCH (08:10)
[2022-12-17] MEDS: MAGNESIUM OXIDE 400 MG TAB PO SCH (08:10)
[2022-12-17] MEDS: FOLIC ACID 1 MG TAB PO SCH (08:11)
[2022-12-17] MEDS: CHOLECALCIFEROL (VITD3) 1,000UNIT=25mCg TAB PO SCH (08:11)
[2022-12-17] MEDS: POTASSIUM CHL 10 Meq TABLET PO SCH (08:11)
[2022-12-17] MEDS: HYDROcodone-ACET 10/325MG TAB PO PRN ×3 (08:14→20:28)
[2022-12-17 08:30] VITALS: BP 169/100
[2022-12-17 09:00] VITALS: BP 169/100
[2022-12-17] MEDS: DOCUSATE SOD 100 MG CAP PO SCH ×2 (10:00→20:31)
[2022-12-17] MEDS ORDERED: clonazePAM 0.5 MG TAB PO ONE (10:15)
[2022-12-17 13:00] VITALS: BP 146/92
[2022-12-17 17:00] VITALS: BP 127/86
[2022-12-17 22:00] VITALS: BP 141/87
[2022-12-18] VITALS (7 sets, daily range): BP systolic 123–146; BP diastolic 73–91
[2022-12-18] MEDS: HYDROcodone-ACET 10/325MG TAB PO PRN ×5 (02:33→22:45)
[2022-12-18] MEDS: LEVOTHYROXINE SODIUM 50 MCG TAB PO SCH (05:42)
[2022-12-18] MEDS: METOCLOPRAMIDE HCL 5MG/ml INJ 2ml VIAL IV SCH ×3 (05:42→20:48)
[2022-12-18] MEDS: metroNIDAZOLE 500 MG TAB PO SCH ×3 (05:42→20:48)
[2022-12-18] MEDS: SODIUM CHLOR 0.9% PF (SALINE LOCK) 10ML VIAL/SYR IV SCH ×3 (05:51→20:49)
[2022-12-18] MEDS: predniSONE 5 MG TAB PO SCH (08:38)
[2022-12-18] MEDS: CHOLECALCIFEROL (VITD3) 1,000UNIT=25mCg TAB PO SCH (08:38)
[2022-12-18] MEDS: POTASSIUM CHL 10 Meq TABLET PO SCH (08:38)
[2022-12-18] MEDS: FOLIC ACID 1 MG TAB PO SCH (08:38)
[2022-12-18] MEDS: levoFLOXacin 500 MG TAB PO SCH (08:38)
[2022-12-18] MEDS: FAMOTIDINE 20 MG TAB PO SCH ×2 (08:38→20:48)
[2022-12-18] MEDS: MAGNESIUM OXIDE 400 MG TAB PO SCH (08:38)
[2022-12-18] MEDS: DULoxetine HCL 30 MG CAP PO SCH (08:39)
[2022-12-18] MEDS: DOCUSATE SOD 100 MG CAP PO SCH ×2 (10:00→20:55)
[2022-12-18] MEDS: clonazePAM 0.5 MG TAB PO PRN (10:56)
[2022-12-18] MEDS: SODIUM CHLORIDE 0.9% 1,000 ML IV SCH (11:02)
[2022-12-19] VITALS (7 sets, daily range): BP systolic 105–160; BP diastolic 55–98
[2022-12-19] MEDS: HYDROcodone-ACET 10/325MG TAB PO PRN ×4 (02:55→20:54)
[2022-12-19] MEDS: clonazePAM 0.5 MG TAB PO PRN ×2 (02:57→22:35)
[2022-12-19] MEDS: LEVOTHYROXINE SODIUM 50 MCG TAB PO SCH (06:00)
[2022-12-19] MEDS: metroNIDAZOLE 500 MG TAB PO SCH ×3 (06:00→22:15)
[2022-12-19] MEDS: SODIUM CHLOR 0.9% PF (SALINE LOCK) 10ML VIAL/SYR IV SCH ×3 (06:01→20:57)
[2022-12-19] MEDS: METOCLOPRAMIDE HCL 5MG/ml INJ 2ml VIAL IV SCH ×3 (06:03→20:56)
[2022-12-19] MEDS: SODIUM CHLORIDE 0.9% 1,000 ML IV SCH ×3 (06:04→22:16)
[2022-12-19] MEDS: hydrALAZINE HCL 20 MG/ML VL IV PRN (06:25)
[2022-12-19] MEDS: DULoxetine HCL 30 MG CAP PO SCH (08:57)
[2022-12-19] MEDS: MAGNESIUM OXIDE 400 MG TAB PO SCH (08:57)
[2022-12-19] MEDS: FOLIC ACID 1 MG TAB PO SCH (08:58)
[2022-12-19] MEDS: POTASSIUM CHL 10 Meq TABLET PO SCH (08:58)
[2022-12-19] MEDS: predniSONE 5 MG TAB PO SCH (08:59)
[2022-12-19] MEDS: FAMOTIDINE 20 MG TAB PO SCH ×2 (08:59→20:55)
[2022-12-19] MEDS: CHOLECALCIFEROL (VITD3) 1,000UNIT=25mCg TAB PO SCH (08:59)
[2022-12-19] MEDS: DOCUSATE SOD 100 MG CAP PO SCH ×2 (09:02→21:02)
[2022-12-20] VITALS (7 sets, daily range): BP systolic 115–155; BP diastolic 71–88
[2022-12-20] MEDS: HYDROcodone-ACET 10/325MG TAB PO PRN ×3 (03:24→16:12)
[2022-12-20] MEDS: METOCLOPRAMIDE HCL 5MG/ml INJ 2ml VIAL IV SCH ×2 (06:13→16:13)
[2022-12-20] MEDS: LEVOTHYROXINE SODIUM 50 MCG TAB PO SCH (06:13)
[2022-12-20] MEDS: metroNIDAZOLE 500 MG TAB PO SCH ×2 (06:13→16:12)
[2022-12-20] MEDS: SODIUM CHLOR 0.9% PF (SALINE LOCK) 10ML VIAL/SYR IV SCH ×3 (06:18→16:20)
[2022-12-20] MEDS: DULoxetine HCL 30 MG CAP PO SCH (09:37)
[2022-12-20] MEDS: CHOLECALCIFEROL (VITD3) 1,000UNIT=25mCg TAB PO SCH (09:38)
[2022-12-20] MEDS: DOCUSATE SOD 100 MG CAP PO SCH (09:38)
[2022-12-20] MEDS: FOLIC ACID 1 MG TAB PO SCH (09:38)
[2022-12-20] MEDS: MAGNESIUM OXIDE 400 MG TAB PO SCH (09:38)
[2022-12-20] MEDS: POTASSIUM CHL 10 Meq TABLET PO SCH (09:38)
[2022-12-20] MEDS: predniSONE 5 MG TAB PO SCH (09:38)
[2022-12-20] MEDS: FAMOTIDINE 20 MG TAB PO SCH (09:38)
[2022-12-20] MEDS ORDERED: NYSTATIN TOPICAL POWDER 15GM TOP SCH (22:00)
== END 2022-12-20 19:30 | DRG 853 ==
LOC: EDBD 14:23 → ER 14:23 → OVERFLOW 23:15 → EAST 11-27 03:09 → TELE-EAST 12-09 18:20 → EAST 12-15 22:57 → TELE-EAST 12-15 22:58
PROVIDERS: ADMIT Nurse Practitioner Family; ATTEND Internal Medicine Cardiovascular Disease
PROC: 0QS636Z Reposition Right Upper Femur with Intramedullary Internal Fixation Device, Percutaneous Approach (ICD-10-PCS; principal; 2022-11-28 10:49)
PROC: 0JH608Z Insertion of Defibrillator Generator into Chest Subcutaneous Tissue and Fascia, Open Approach (ICD-10-PCS; 2022-12-09)
PROC: 02H63KZ Insertion of Defibrillator Lead into Right Atrium, Percutaneous Approach (ICD-10-PCS; 2022-12-09)
PROC: 02HK3KZ Insertion of Defibrillator Lead into Right Ventricle, Percutaneous Approach (ICD-10-PCS; 2022-12-09)
DX: A41.9 Sepsis, unspecified organism (principal); S72.141A Displaced intertrochanteric fracture of right femur, initial encounter for closed fracture; K57.92 Diverticulitis of intestine, part unspecified, without perforation or abscess without bleeding; K80.10 Calculus of gallbladder with chronic cholecystitis without obstruction; I50.22 Chronic systolic (congestive) heart failure; K52.9 Noninfective gastroenteritis and colitis, unspecified; D64.9 Anemia, unspecified; K21.9 Gastro-esophageal reflux disease without esophagitis; F41.9 Anxiety disorder, unspecified; I25.10 Atherosclerotic heart disease of native coronary artery without angina pectoris; M19.90 Unspecified osteoarthritis, unspecified site; I11.0 Hypertensive heart disease with heart failure; W01.0XXA Fall on same level from slipping, tripping and stumbling without subsequent striking against object, initial encounter; Y93.89 Activity, other specified; Y99.8 Other external cause status; Z95.810 Presence of automatic (implantable) cardiac defibrillator; Y92.098 Other place in other non-institutional residence as the place of occurrence of the external cause
CPT/HCPCS: 33249; 36415; 71045; 71101; 72192; 73502; 74177; 76000; 76705; 78226; 80048; 80053; 81001; 83690; 84484; 85025; 85610; 85730; 86850; 86900; 86901; 93005; 96365; 96367; 96375; 96376; 97110; 97116; 97163; 97530; 99152; 99153; G0378; J0131; J0330; J0690; J0696; J1100; J2250; J2405; J3480; J3490; Q9967

== ENCOUNTER → 2023-02-07 | Outpatient (CLI) | payer MEDICARE, OTHER ==
[~2023-02-07] MED LIST changes: -HYDR-4188 PO; -LEVO500I7 PO; +LEVO50TA7 PO; +POTA-264; +TRAM50TA2 PO
== END | disposition home or self-care (01) ==
LOC: Rad HDHVI 14:52
PROVIDERS: ATTEND Internal Medicine Cardiovascular Disease
DX: M85.9 Disorder of bone density and structure, unspecified (principal); M81.0 Age-related osteoporosis without current pathological fracture
CPT/HCPCS: 77078

== ENCOUNTER 2023-02-18 23:06 | Inpatient (IN) | payer MEDICARE, OTHER ==
[~2023-02-18] VITALS: Ht 172.7 cm; Wt 84.5 kg
[2023-02-18 23:20] VITALS: PULSE 90; RESP 12; O2SAT 95
[2023-02-18 23:56] LABS: Basophils # (auto) 0 10 ^3/uL (0-0.2); Basophils % (auto) 0.4 % (0.0-2.0); Eosinophils # (auto) 0.1 10 ^3/uL (0-0.8); Eosinophils % (auto) 1.4 % (0.0-7.0); Hematocrit 39.6 % (41.0-53.0); Hemoglobin 13.3 g/dL (13.5-17.5); Lymphocytes # (auto) 1.2 10 ^3/uL (0.4-5.4); Lymphocytes % (auto) 15.1 % (10.0-50.0); Mean Corpuscular Hgb Conc. 33.7 g/dL (32.0-36.0); Monocytes # (auto) 0.7 10 ^3/uL (0-1.3); Neutrophils # (auto) 6.1 10 ^3/uL (1.6-8.6); Neutrophils % (auto) 74.1 % (37.0-80.0); Nucleated Red Blood Cells % 0.7 %; Red Blood Cells 4.45 10^6/uL (4.5-5.90); Red Cell Distribution Width 15.1 % (11.8-14.3); White Blood Cell 8.3 10^3/uL (4.4-10.8)
[2023-02-19 00:14] LABS: Albumin 3.1 g/dL (3.4-5.0); Calcium 8.5 mg/dL (8.5-10.1); Potassium 3.8 mmol/L (3.5-5.1)
[2023-02-19 00:19] LABS: BUN/Creatinine Ratio 14.9 (10.0-20.0); Bilirubin, Total 0.6 mg/dL (0.2-1.0); Total Protein 6.5 g/dL (6.4-8.2)
[2023-02-19] MEDS ORDERED: MORPHINE SULFATE INJ 2 MG/ml SYRG IV PRN (01:45)
[2023-02-19] MEDS ORDERED: NITROGLYCERIN 0.4 MG SL TAB SL PRN (01:45)
[2023-02-19] MEDS ORDERED: DOCUSATE SOD 100 MG CAP PO PRN (01:45)
[2023-02-19] MEDS ORDERED: ACETAMINOPHEN 325 MG TAB PO PRN (01:45)
[2023-02-19] MEDS: ONDANSETRON HCL 4 MG/2 ML VIAL IV PRN ×3 (02:15→14:19)
[2023-02-19] MEDS: MORPHINE SULFATE INJ 2 MG/ml SYRG IV PRN ×3 (02:15→10:01)
[2023-02-19] MEDS: D5W/SOD CHLO 0.9% 1,000 ML IV SCH ×2 (02:28→21:45)
[2023-02-19 06:21] LABS: Basophils # (auto) 0 10 ^3/uL (0-0.2); Basophils % (auto) 0.6 % (0.0-2.0); Eosinophils # (auto) 0.1 10 ^3/uL (0-0.8); Eosinophils % (auto) 1.7 % (0.0-7.0); Hematocrit 37.5 % (41.0-53.0); Hemoglobin 13.1 g/dL (13.5-17.5); Lymphocytes # (auto) 1.3 10 ^3/uL (0.4-5.4); Lymphocytes % (auto) 19.4 % (10.0-50.0); Mean Corpuscular Hemoglobin 30.8 pg (28.0-32.0); Mean Corpuscular Hgb Conc. 34.9 g/dL (32.0-36.0); Mean Corpuscular Volume 88.2 fL (80.0-100.0); Monocytes # (auto) 0.6 10 ^3/uL (0-1.3); Monocytes % (auto) 8.4 % (0.0-12.0); Neutrophils # (auto) 4.7 10 ^3/uL (1.6-8.6); Neutrophils % (auto) 69.9 % (37.0-80.0); Nucleated Red Blood Cells % 0.3 %; Red Blood Cells 4.26 10^6/uL (4.5-5.90); Red Cell Distribution Width 14.8 % (11.8-14.3); White Blood Cell 6.8 10^3/uL (4.4-10.8)
[2023-02-19 06:36] LABS: INR 1.05 (0.9-1.15); Partial Thromboplastin Time 29.9 SEC (24.5-34.5)
[2023-02-19 06:57] LABS: Albumin 2.9 g/dL (3.4-5.0); Calcium 8.5 mg/dL (8.5-10.1); Potassium 3.8 mmol/L (3.5-5.1)
[2023-02-19 07:01] LABS: BUN/Creatinine Ratio 15.5 (10.0-20.0); Bilirubin, Total 0.6 mg/dL (0.2-1.0); Total Protein 6.7 g/dL (6.4-8.2)
[2023-02-19] MEDS: HYDROcodone-ACET 5/325MG TAB PO PRN ×2 (08:15→12:20)
[2023-02-19 08:37] VITALS: PULSE 77; RESP 18; O2SAT 97
[2023-02-19] MEDS: ENOXAPARIN SOD 40 MG/0.4 ML SYRINGE SC SCH (10:01)
[2023-02-19] MEDS: FAMOTIDINE (10MG/ML) 2ML VL IV SCH (10:01)
[2023-02-19] MEDS ORDERED: MORPHINE SULFATE 4 MG/ML SYR/VIAL IV PRN (12:45)
[2023-02-19] MEDS: METOPROLOL TARTRATE 50 MG TAB PO SCH (14:18)
[2023-02-19 19:41] VITALS: PULSE 72; RESP 14; O2SAT 98
[2023-02-20] MEDS: METOPROLOL TARTRATE 50 MG TAB PO SCH ×3 (01:04→23:11)
[2023-02-20] MEDS: FAMOTIDINE (10MG/ML) 2ML VL IV SCH ×3 (01:04→23:11)
[2023-02-20] MEDS: LORazepam 2MG/ML-1ML VIAL IV PRN ×2 (04:08→16:54)
[2023-02-20] MEDS: HYDROcodone-ACET 5/325MG TAB PO PRN (04:47)
[2023-02-20 05:51] LABS: Calcium 8.9 mg/dL (8.5-10.1)
[2023-02-20 05:56] LABS: BUN/Creatinine Ratio 14.7 (10.0-20.0); Bilirubin, Total 1.5 mg/dL (0.2-1.0)
[2023-02-20 06:01] LABS: Basophils # (auto) 0 10 ^3/uL (0-0.2); Basophils % (auto) 0.4 % (0.0-2.0); Eosinophils # (auto) 0 10 ^3/uL (0-0.8); Eosinophils % (auto) 0.3 % (0.0-7.0); Hematocrit 40.1 % (41.0-53.0); Hemoglobin 13.7 g/dL (13.5-17.5); Lymphocytes # (auto) 1.2 10 ^3/uL (0.4-5.4); Lymphocytes % (auto) 13.4 % (10.0-50.0); Mean Corpuscular Hemoglobin 30.3 pg (28.0-32.0); Mean Corpuscular Hgb Conc. 34.2 g/dL (32.0-36.0); Mean Corpuscular Volume 88.6 fL (80.0-100.0); Monocytes # (auto) 0.9 10 ^3/uL (0-1.3); Monocytes % (auto) 9.6 % (0.0-12.0); Neutrophils # (auto) 6.8 10 ^3/uL (1.6-8.6); Neutrophils % (auto) 76.3 % (37.0-80.0); Nucleated Red Blood Cells % 0.2 %; Red Blood Cells 4.52 10^6/uL (4.5-5.90); Red Cell Distribution Width 15.1 % (11.8-14.3)
[2023-02-20] MEDS ORDERED: DexAMETHasone SOD PHOS 4 MG/1ML SDV INJ ONE (07:31)
[2023-02-20] MEDS ORDERED: LIDOCAINE 2% (LOCAL ANESTH.) PF 5ml SDV ONE (07:37)
[2023-02-20] MEDS ORDERED: HYDROmorphone HCL 2 MG/ML VL/or syr ONE (07:37)
[2023-02-20] MEDS ORDERED: ONDANSETRON HCL 4 MG/2 ML VIAL ONE (07:37)
[2023-02-20] MEDS ORDERED: ETOMIDATE (2MG/ML) 20ML VIAL IV ONE (07:37)
[2023-02-20] MEDS ORDERED: fentaNYL CITRATE 100 MCG/2 ML VL ONE (07:37)
[2023-02-20] MEDS ORDERED: GLYCOPYRROLATE 0.2 MG/ML 1ML VIAL ONE (07:37)
[2023-02-20] MEDS ORDERED: PROPOFOL 10 MG/ML 20 ML IV ONE (07:37)
[2023-02-20] MEDS ORDERED: PHENYLEPHRINE HCL 10 MG/ML VL ONE (07:37)
[2023-02-20] MEDS ORDERED: ePHEDrine SULFATE 50 MG/ML AMP ONE (07:37)
[2023-02-20] MEDS ORDERED: DexAMETHasone SOD PHOS 10MG/1ML VIAL INJ IV ONE (07:40)
[2023-02-20] MEDS ORDERED: KETAMINE HCL 10 ML ONE (07:43)
[2023-02-20] MEDS ORDERED: ceFAZolin 1GM/50ML 100 ML IV ONE (07:48)
[2023-02-20] MEDS: ENOXAPARIN SOD 40 MG/0.4 ML SYRINGE SC SCH (10:00)
[2023-02-20 10:20] VITALS: RESP 13; O2SAT 95
[2023-02-20] MEDS ORDERED: HYDROmorphone HCL 2 MG/ML VL/or syr IV PRN (10:30)
[2023-02-20] MEDS ORDERED: ONDANSETRON HCL 4 MG/2 ML VIAL IV PRN (10:30)
[2023-02-20 11:45] VITALS: BP 132/71; PULSE 72; RESP 18; TEMP 97.3; O2SAT 95
[2023-02-20 12:08] VITALS: BP 132/71; PULSE 72; RESP 18; O2SAT 95
[2023-02-20] MEDS: ceFAZolin 1GM/50ML 50 ML IV SCH ×2 (15:56→23:11)
[2023-02-20 17:15] VITALS: BP 143/73; PULSE 75; RESP 18; TEMP 97.3; O2SAT 96
[2023-02-20] MEDS: D5W/SOD CHLO 0.9% 1,000 ML IV SCH (17:45)
[2023-02-20 20:00] VITALS: BP 132/72; PULSE 75; PULSE 83; RESP 20; TEMP 97.2; O2SAT 93
[2023-02-20 22:00] VITALS: BP 132/72; PULSE 83; RESP 20; TEMP 97.2; O2SAT 93
[2023-02-21] VITALS (7 sets, daily range): BP systolic 134–157; BP diastolic 66–81; PULSE 67–95; RESP 16–20; TEMP 97.9–98.5; O2SAT 94–98
[2023-02-21] MEDS: HYDROcodone-ACET 5/325MG TAB PO PRN ×5 (00:59→21:12)
[2023-02-21] MEDS: LORazepam 2MG/ML-1ML VIAL IV PRN ×2 (05:26→17:58)
[2023-02-21] MEDS: ceFAZolin 1GM/50ML 50 ML IV SCH (05:26)
[2023-02-21] MEDS: ENOXAPARIN SOD 40 MG/0.4 ML SYRINGE SC SCH (09:57)
[2023-02-21] MEDS: METOPROLOL TARTRATE 50 MG TAB PO SCH ×2 (09:58→21:12)
[2023-02-21] MEDS: FAMOTIDINE (10MG/ML) 2ML VL IV SCH ×2 (09:59→21:11)
[2023-02-21 14:23] LABS: COVID19 ANTIGEN SOFIA FIA NEGATIVE (NEGATIVE)
[2023-02-21 19:34] LABS: Basophils # (auto) 0 10 ^3/uL (0-0.2); Basophils % (auto) 0.1 % (0.0-2.0); Eosinophils # (auto) 0 10 ^3/uL (0-0.8); Eosinophils % (auto) 0.2 % (0.0-7.0); Hematocrit 33.4 % (41.0-53.0); Hemoglobin 11.3 g/dL (13.5-17.5); Lymphocytes # (auto) 2.1 10 ^3/uL (0.4-5.4); Lymphocytes % (auto) 15.9 % (10.0-50.0); Mean Corpuscular Hemoglobin 29.8 pg (28.0-32.0); Mean Corpuscular Hgb Conc. 33.8 g/dL (32.0-36.0); Mean Corpuscular Volume 88.4 fL (80.0-100.0); Monocytes # (auto) 1.4 10 ^3/uL (0-1.3); Monocytes % (auto) 10.6 % (0.0-12.0); Neutrophils # (auto) 9.7 10 ^3/uL (1.6-8.6); Neutrophils % (auto) 73.2 % (37.0-80.0); Nucleated Red Blood Cells % 0.1 %; Red Blood Cells 3.78 10^6/uL (4.5-5.90); Red Cell Distribution Width 15.1 % (11.8-14.3); White Blood Cell 13.2 10^3/uL (4.4-10.8)
[2023-02-21 19:36] LABS: Alanine Aminotransferase 12 U/L (7-40); Albumin 3.3 g/dL (3.2-4.8); Alkaline Phosphatase 78 U/L (46-116); Anion Gap 7.3 (5-15); Aspartate Aminotransferase 28 U/L (13-40); BUN/Creatinine Ratio 26.4 (10.0-20.0); Bilirubin, Total 0.9 mg/dL (0.2-1.0); Blood Urea Nitrogen 24 mg/dL (9-23); Calcium 8.3 mg/dL (8.5-10.1); Carbon Dioxide 27.7 mmol/L (20-30); Chloride 104 mmol/L (98-107); Glucose 105 mg/dL (74-106); Potassium 3.7 mmol/L (3.5-5.1); Sodium 139 mmol/L (136-145); Total Protein 5.5 g/dL (5.7-8.2)
[2023-02-22] MEDS: LORazepam 2MG/ML-1ML VIAL IV PRN ×2 (02:43→14:04)
[2023-02-22] MEDS: HYDROcodone-ACET 5/325MG TAB PO PRN ×2 (02:43→09:21)
[2023-02-22 05:00] VITALS: BP 126/72; PULSE 77; RESP 18; TEMP 98.3; O2SAT 95
[2023-02-22 07:30] VITALS: PULSE 80
[2023-02-22 09:00] VITALS: BP 151/74; PULSE 77; RESP 20; TEMP 97.7; O2SAT 97
[2023-02-22] MEDS ORDERED: LACTULOSE 20Gm/30ML SOLN PO ONE (09:15)
[2023-02-22] MEDS: FAMOTIDINE (10MG/ML) 2ML VL IV SCH (09:20)
[2023-02-22] MEDS: ENOXAPARIN SOD 40 MG/0.4 ML SYRINGE SC SCH (09:31)
[2023-02-22] MEDS: METOPROLOL TARTRATE 50 MG TAB PO SCH (09:36)
[2023-02-22 13:00] VITALS: BP 155/67; PULSE 83; RESP 16; TEMP 99; O2SAT 94
[2023-02-22 13:17] VITALS: BP 151/74; PULSE 80; TEMP 36.5
[2023-02-22 13:45] VITALS: BP 151/74; PULSE 80; TEMP 36.5
== END 2023-02-22 15:30 | DRG 499 ==
LOC: ER 23:06 → TELE 02-19 01:52 → TELE-CENTR 02-20 11:35 → TELE-E-ADS 02-22 06:00
PROVIDERS: ADMIT Nurse Practitioner Family; ATTEND Family Medicine
PROC: 0QP604Z Removal of Internal Fixation Device from Right Upper Femur, Open Approach (ICD-10-PCS; 2023-02-20)
PROC: 0PSTXZZ Reposition Right Finger Phalanx, External Approach (ICD-10-PCS; 2023-02-20)
PROC: 0PSP35Z Reposition Right Metacarpal with External Fixation Device, Percutaneous Approach (ICD-10-PCS; 2023-02-20)
PROC: 0QW604Z Revision of Internal Fixation Device in Right Upper Femur, Open Approach (ICD-10-PCS; principal; 2023-02-20 08:22)
DX: S72.301A Unspecified fracture of shaft of right femur, initial encounter for closed fracture (principal); K21.9 Gastro-esophageal reflux disease without esophagitis; I25.10 Atherosclerotic heart disease of native coronary artery without angina pectoris; I10 Essential (primary) hypertension; E78.5 Hyperlipidemia, unspecified; W01.0XXA Fall on same level from slipping, tripping and stumbling without subsequent striking against object, initial encounter; E87.6 Hypokalemia; S62.604A Fracture of unspecified phalanx of right ring finger, initial encounter for closed fracture; S62.306A Unspecified fracture of fifth metacarpal bone, right hand, initial encounter for closed fracture; Z95.810 Presence of automatic (implantable) cardiac defibrillator; Y93.89 Activity, other specified; Y99.8 Other external cause status; Y92.009 Unspecified place in unspecified non-institutional (private) residence as the place of occurrence of the external cause; Z95.5 Presence of coronary angioplasty implant and graft; Z86.11 Personal history of tuberculosis; Z87.891 Personal history of nicotine dependence; Z85.46 Personal history of malignant neoplasm of prostate
CPT/HCPCS: 36415; 71045; 73080; 73120; 73130; 73502; 74176; 76000; 80053; 84484; 85025; 85610; 85730; 86850; 86900; 86901; 87426; 93005; 96360; 97110; 97116; 97163; 97530; C1713; C1769; G0378; J0690; J1100; J2001; J2405; J2704; J3490; J7042

== ENCOUNTER 2023-05-25 15:58 | Inpatient (IN) | payer MEDICARE, OTHER ==
[~2023-05-25] VITALS: Ht 177.8 cm; Wt 71.7 kg
[~2023-05-25 15:58] MED LIST changes: -OMEGCAP2 PO; -PRED1PAK8 PO
[2023-05-25 16:43] LABS: Basophils # (auto) 0.1 10 ^3/uL (0-0.2); Basophils % (auto) 0.8 % (0.0-2.0); Eosinophils # (auto) 0.4 10 ^3/uL (0-0.8); Eosinophils % (auto) 2.8 % (0.0-7.0); Hematocrit 43.7 % (41.0-53.0); Lymphocytes # (auto) 2.4 10 ^3/uL (0.4-5.4); Lymphocytes % (auto) 17.7 % (10.0-50.0); Mean Corpuscular Hemoglobin 27.2 pg (28.0-32.0); Mean Corpuscular Hgb Conc. 32.1 g/dL (32.0-36.0); Mean Corpuscular Volume 84.6 fL (80.0-100.0); Monocytes # (auto) 1.6 10 ^3/uL (0-1.3); Monocytes % (auto) 11.8 % (0.0-12.0); Neutrophils # (auto) 9.2 10 ^3/uL (1.6-8.6); Neutrophils % (auto) 66.9 % (37.0-80.0); Red Blood Cells 5.16 10^6/uL (4.5-5.90); Red Cell Distribution Width 17.2 % (11.8-14.3); White Blood Cell 13.8 10^3/uL (4.4-10.8)
[2023-05-25 17:02] LABS: Alanine Aminotransferase 16 U/L (7-40); Albumin 3.8 g/dL (3.2-4.8); Alkaline Phosphatase 122 U/L (46-116); Anion Gap 9 (5-15); Aspartate Aminotransferase 19 U/L (13-40); BUN/Creatinine Ratio 27.5 (10.0-20.0); Blood Urea Nitrogen 25 mg/dL (9-23); Calcium 9.1 mg/dL (8.7-10.4); Carbon Dioxide 24 mmol/L (20-30); Chloride 107 mmol/L (98-107); Glucose 121 mg/dL (74-106); Potassium 3.8 mmol/L (3.5-5.1); Sodium 140 mmol/L (136-145)
[2023-05-25 17:03] LABS: Bilirubin, Total 0.9 mg/dL (0.2-1.0); Total Protein 7.1 g/dL (5.7-8.2)
[2023-05-25 18:10] VITALS: PULSE 88; RESP 15; O2SAT 95
[2023-05-25 19:40] VITALS: PULSE 87; RESP 14; O2SAT 94
[2023-05-25 21:37] LABS: Urine Bacteria NONE SEEN /hpf (None Seen); Urine Blood Negative /uL (Negative); Urine Clarity Clear (Clear); Urine Color Yellow (Yellow); Urine Mucus FEW (None Seen); Urine Protein, UAD TRACE (Negative); Urine Specific Gravity 1.027 (1.001-1.035); Urine Urobilinogen Normal (Negative); Urine WBC 1 /hpf (0 - 3)
[2023-05-25] MEDS ORDERED: ONDANSETRON HCL 4 MG/2 ML VIAL IV PRN (23:00)
[2023-05-25] MEDS ORDERED: DOCUSATE SOD 100 MG CAP PO PRN (23:00)
[2023-05-25] MEDS ORDERED: ACETAMINOPHEN 325 MG TAB PO PRN (23:00)
[2023-05-25] MEDS ORDERED: cefTRIAXone 1GM/50ML D5W 50 ML IV ONE (23:00)
[2023-05-26] MEDS ORDERED: MORPHINE SULFATE INJ 2 MG/ml SYRG IV PRN
[2023-05-26] MEDS ORDERED: NITROGLYCERIN 0.4 MG SL TAB SL PRN
[2023-05-26] MEDS: HYDROcodone-ACET 5/325MG TAB PO PRN ×3 (02:45→21:21)
[2023-05-26] MEDS: SODIUM CHLOR 0.9% PF (SALINE LOCK) 10ML VIAL/SYR IV SCH ×3 (05:55→21:18)
[2023-05-26 06:06] LABS: Basophils # (auto) 0.1 10 ^3/uL (0-0.2); Basophils % (auto) 0.7 % (0.0-2.0); Eosinophils # (auto) 0.2 10 ^3/uL (0-0.8); Eosinophils % (auto) 2.1 % (0.0-7.0); Hematocrit 42.4 % (41.0-53.0); Hemoglobin 13.6 g/dL (13.5-17.5); Lymphocytes # (auto) 1.7 10 ^3/uL (0.4-5.4); Lymphocytes % (auto) 15.2 % (10.0-50.0); Mean Corpuscular Hemoglobin 27.5 pg (28.0-32.0); Mean Corpuscular Hgb Conc. 32.1 g/dL (32.0-36.0); Mean Corpuscular Volume 85.8 fL (80.0-100.0); Monocytes # (auto) 1.2 10 ^3/uL (0-1.3); Neutrophils # (auto) 7.9 10 ^3/uL (1.6-8.6); Nucleated Red Blood Cells % 0.1 %; Red Blood Cells 4.95 10^6/uL (4.5-5.90); Red Cell Distribution Width 17.2 % (11.8-14.3); White Blood Cell 11.2 10^3/uL (4.4-10.8)
[2023-05-26 06:09] LABS: Alanine Aminotransferase 13 U/L (7-40); Albumin 3.7 g/dL (3.2-4.8); Alkaline Phosphatase 113 U/L (46-116); Anion Gap 8 (5-15); Aspartate Aminotransferase 17 U/L (13-40); BUN/Creatinine Ratio 24.4 (10.0-20.0); Blood Urea Nitrogen 22 mg/dL (9-23); Calcium 8.7 mg/dL (8.7-10.4); Carbon Dioxide 24 mmol/L (20-30); Chloride 109 mmol/L (98-107); Glucose 109 mg/dL (74-106); Potassium 3.7 mmol/L (3.5-5.1); Sodium 141 mmol/L (136-145)
[2023-05-26 06:10] LABS: Bilirubin, Total 0.8 mg/dL (0.2-1.0); Total Protein 6.9 g/dL (5.7-8.2)
[2023-05-26] MEDS: LEVOTHYROXINE SODIUM 50 MCG TAB PO SCH (06:48)
[2023-05-26] MEDS ORDERED: FAMOTIDINE (10MG/ML) 2ML VL IV SCH (10:00)
[2023-05-26] MEDS: CLOPIDOGREL BISULFATE 75 MG TAB PO SCH (11:10)
[2023-05-26] MEDS ORDERED: hydrOXYzine HCL 10 MG TAB PO PRN (11:30)
[2023-05-26] MEDS ORDERED: DULoxetine HCL 30 MG CAP PO ONE (11:30)
[2023-05-26 19:51] VITALS: PULSE 97; RESP 18; O2SAT 96
[2023-05-26] MEDS ORDERED: cefTRIAXone 1GM/50ML D5W 50 ML IV SCH (21:00)
[2023-05-26] MEDS: FAMOTIDINE 20 MG TAB PO SCH (21:16)
[2023-05-27] VITALS (7 sets, daily range): BP systolic 130–148; BP diastolic 58–83; PULSE 75–104; RESP 16–20; TEMP 97.5–98.5; O2SAT 94–97
[2023-05-27] MEDS: SODIUM CHLOR 0.9% PF (SALINE LOCK) 10ML VIAL/SYR IV SCH ×3 (06:00→21:27)
[2023-05-27] MEDS: LEVOTHYROXINE SODIUM 50 MCG TAB PO SCH (06:21)
[2023-05-27 07:43] LABS: Basophils # (auto) 0.1 10 ^3/uL (0-0.2); Basophils % (auto) 0.7 % (0.0-2.0); Eosinophils # (auto) 0.4 10 ^3/uL (0-0.8); Eosinophils % (auto) 3.8 % (0.0-7.0); Hematocrit 39.2 % (41.0-53.0); Hemoglobin 12.9 g/dL (13.5-17.5); Lymphocytes # (auto) 1.6 10 ^3/uL (0.4-5.4); Lymphocytes % (auto) 15.4 % (10.0-50.0); Mean Corpuscular Hemoglobin 27.8 pg (28.0-32.0); Mean Corpuscular Hgb Conc. 32.9 g/dL (32.0-36.0); Mean Corpuscular Volume 84.5 fL (80.0-100.0); Monocytes # (auto) 0.9 10 ^3/uL (0-1.3); Monocytes % (auto) 8.9 % (0.0-12.0); Neutrophils # (auto) 7.5 10 ^3/uL (1.6-8.6); Neutrophils % (auto) 71.2 % (37.0-80.0); Red Blood Cells 4.63 10^6/uL (4.5-5.90); Red Cell Distribution Width 17.3 % (11.8-14.3); White Blood Cell 10.5 10^3/uL (4.4-10.8)
[2023-05-27 07:45] LABS: Chloride 107 mmol/L (98-107); Potassium 3.4 mmol/L (3.5-5.1); Sodium 140 mmol/L (136-145)
[2023-05-27 07:46] LABS: Anion Gap 7 (5-15); Carbon Dioxide 26 mmol/L (20-30)
[2023-05-27 07:51] LABS: BUN/Creatinine Ratio 32.5 (10.0-20.0); Blood Urea Nitrogen 25 mg/dL (9-23); Glucose 110 mg/dL (74-106)
[2023-05-27] MEDS ORDERED: POTASSIUM EFFERVESENT TAB 25 MEQ PO ONE (09:45)
[2023-05-27 10:46] LABS: Erythrocyte Sedimentation Rate 58 mm/hr (0-20)
[2023-05-27] MEDS: DULoxetine HCL 30 MG CAP PO SCH (11:04)
[2023-05-27] MEDS: CLOPIDOGREL BISULFATE 75 MG TAB PO SCH (11:04)
[2023-05-27] MEDS: FAMOTIDINE 20 MG TAB PO SCH ×2 (11:04→21:25)
[2023-05-27] MEDS: HYDROcodone-ACET 5/325MG TAB PO PRN (21:26)
[2023-05-28] VITALS (7 sets, daily range): BP systolic 123–143; BP diastolic 65–76; PULSE 61–104; RESP 16–19; TEMP 97.5–98.6; O2SAT 91–96
[2023-05-28] MEDS: SODIUM CHLOR 0.9% PF (SALINE LOCK) 10ML VIAL/SYR IV SCH ×3 (06:10→22:00)
[2023-05-28] MEDS: LEVOTHYROXINE SODIUM 50 MCG TAB PO SCH (06:10)
[2023-05-28 06:41] LABS: Basophils # (auto) 0.1 10 ^3/uL (0-0.2); Eosinophils # (auto) 0.5 10 ^3/uL (0-0.8); Eosinophils % (auto) 5.1 % (0.0-7.0); Hematocrit 39.5 % (41.0-53.0); Lymphocytes # (auto) 1.6 10 ^3/uL (0.4-5.4); Lymphocytes % (auto) 17.4 % (10.0-50.0); Mean Corpuscular Hemoglobin 27.6 pg (28.0-32.0); Mean Corpuscular Hgb Conc. 32.9 g/dL (32.0-36.0); Mean Corpuscular Volume 83.8 fL (80.0-100.0); Monocytes # (auto) 0.8 10 ^3/uL (0-1.3); Monocytes % (auto) 8.7 % (0.0-12.0); Neutrophils # (auto) 6.4 10 ^3/uL (1.6-8.6); Neutrophils % (auto) 67.8 % (37.0-80.0); Nucleated Red Blood Cells % 0.1 %; Red Blood Cells 4.71 10^6/uL (4.5-5.90); Red Cell Distribution Width 16.8 % (11.8-14.3); White Blood Cell 9.5 10^3/uL (4.4-10.8)
[2023-05-28 07:12] LABS: Chloride 106 mmol/L (98-107); Potassium 3.4 mmol/L (3.5-5.1); Sodium 138 mmol/L (136-145)
[2023-05-28 07:13] LABS: Anion Gap 7 (5-15); Carbon Dioxide 25 mmol/L (20-30)
[2023-05-28 07:14] LABS: Calcium 8.7 mg/dL (8.7-10.4)
[2023-05-28 07:19] LABS: Blood Urea Nitrogen 19 mg/dL (9-23); Glucose 106 mg/dL (74-106)
[2023-05-28] MEDS: CLOPIDOGREL BISULFATE 75 MG TAB PO SCH (10:58)
[2023-05-28] MEDS: FAMOTIDINE 20 MG TAB PO SCH ×2 (10:59→21:14)
[2023-05-28] MEDS: DULoxetine HCL 30 MG CAP PO SCH (11:04)
[2023-05-29 05:00] VITALS: BP 123/51; PULSE 75; RESP 18; TEMP 98.6; O2SAT 96
[2023-05-29] MEDS: HYDROcodone-ACET 5/325MG TAB PO PRN ×2 (06:05→22:05)
[2023-05-29] MEDS: LEVOTHYROXINE SODIUM 50 MCG TAB PO SCH (06:05)
[2023-05-29] MEDS: SODIUM CHLOR 0.9% PF (SALINE LOCK) 10ML VIAL/SYR IV SCH ×2 (06:06→13:58)
[2023-05-29 08:00] VITALS: PULSE 75
[2023-05-29 09:00] VITALS: BP 133/81; PULSE 86; RESP 17; TEMP 98.5; O2SAT 94
[2023-05-29] MEDS: CLOPIDOGREL BISULFATE 75 MG TAB PO SCH (09:43)
[2023-05-29] MEDS: FAMOTIDINE 20 MG TAB PO SCH ×2 (09:43→22:01)
[2023-05-29] MEDS: DULoxetine HCL 30 MG CAP PO SCH (09:43)
[2023-05-29] MEDS ORDERED: MAGNESIUM OXIDE 400 MG TAB PO ONE (10:15)
[2023-05-29 15:41] LABS: Erythrocyte Sedimentation Rate 36 mm/hr (0-20)
[2023-05-29 17:00] VITALS: BP 132/83; PULSE 64; RESP 19; TEMP 98.1; O2SAT 94
[2023-05-29] MEDS ORDERED: methylPREDNISolone SOD SUCC 125 MG/2 ML VL IV ONE (19:15)
[2023-05-29 20:00] VITALS: PULSE 80; RESP 18
[2023-05-29 23:55] VITALS: BP 119/73; PULSE 90; RESP 18; TEMP 98.4; O2SAT 95
[2023-05-30] MEDS: SODIUM CHLOR 0.9% PF (SALINE LOCK) 10ML VIAL/SYR IV SCH ×2 (01:06→06:09)
[2023-05-30] MEDS: HYDROcodone-ACET 5/325MG TAB PO PRN (04:05)
[2023-05-30 04:51] VITALS: BP 135/74; PULSE 86; RESP 17; TEMP 97.5; O2SAT 96
[2023-05-30 05:42] LABS: Chloride 107 mmol/L (98-107); Potassium 3.7 mmol/L (3.5-5.1); Sodium 138 mmol/L (136-145)
[2023-05-30 05:43] LABS: Anion Gap 6 (5-15); Calcium 9.1 mg/dL (8.5-10.1); Carbon Dioxide 25 mmol/L (20-30)
[2023-05-30 05:48] LABS: BUN/Creatinine Ratio 18.8 (10.0-20.0); Blood Urea Nitrogen 16 mg/dL (9-23); Glucose 106 mg/dL (74-106)
[2023-05-30] MEDS: LEVOTHYROXINE SODIUM 50 MCG TAB PO SCH (06:09)
[2023-05-30 09:00] VITALS: BP_SYST 134; BP_SYST 146; BP_DIAS 68; BP_DIAS 77; PULSE 60; PULSE 82; RESP 18; TEMP 97.8; TEMP 98.4; O2SAT 93; O2SAT 96
[2023-05-30] MEDS: DULoxetine HCL 30 MG CAP PO SCH (09:31)
[2023-05-30] MEDS: CLOPIDOGREL BISULFATE 75 MG TAB PO SCH (09:31)
[2023-05-30] MEDS: FAMOTIDINE 20 MG TAB PO SCH (09:31)
[2023-05-30] MEDS ORDERED: MAGNESIUM OXIDE 400 MG TAB PO SCH (10:00)
[2023-05-31] MEDS ORDERED: hydrOXYchloroQUINE SULFATE 200 MG TAB PO SCH (10:00)
[2023-05-31] MEDS ORDERED: FOLIC ACID 1 MG TAB PO SCH (10:00)
[2023-05-31] MEDS ORDERED: METHOTREXATE 2.5 MG TAB PO SCH (10:00)
== END 2023-05-30 15:35 | DRG 546 ==
LOC: ER 15:58 → EDBD 15:58 → TELE 23:50 → TELE-CENTR 05-26 23:20 → CENTRAL 05-29 17:27
PROVIDERS: ADMIT Nurse Practitioner Family; ATTEND Internal Medicine
DX: M06.9 Rheumatoid arthritis, unspecified (principal); I13.0 Hypertensive heart and chronic kidney disease with heart failure and stage 1 through stage 4 chronic kidney disease, or unspecified chronic kidney disease; I50.22 Chronic systolic (congestive) heart failure; K80.10 Calculus of gallbladder with chronic cholecystitis without obstruction; E86.0 Dehydration; D72.829 Elevated white blood cell count, unspecified; E78.5 Hyperlipidemia, unspecified; F03.90 Unspecified dementia, unspecified severity, without behavioral disturbance, psychotic disturbance, mood disturbance, and anxiety; I25.10 Atherosclerotic heart disease of native coronary artery without angina pectoris; F41.9 Anxiety disorder, unspecified; N18.9 Chronic kidney disease, unspecified; K21.9 Gastro-esophageal reflux disease without esophagitis; D64.9 Anemia, unspecified; M81.0 Age-related osteoporosis without current pathological fracture; E87.6 Hypokalemia; Z87.891 Personal history of nicotine dependence; Z95.810 Presence of automatic (implantable) cardiac defibrillator; Z95.5 Presence of coronary angioplasty implant and graft; Z91.199 Patient's noncompliance with other medical treatment and regimen due to unspecified reason; Z86.11 Personal history of tuberculosis
CPT/HCPCS: 36415; 71045; 72170; 73560; 80048; 80053; 81001; 83735; 83880; 84443; 84484; 85025; 85652; 86141; 87040; 93005; 97110; 97116; 97163; 97530; G0378; J0696; J3490

== ENCOUNTER 2023-09-16 16:38 | Inpatient (IN) | payer MEDICARE, OTHER ==
[~2023-09-16] VITALS: Ht 172.7 cm; Wt 72.3 kg
[2023-09-16 19:06] LABS: Basophils # (auto) 0 10 ^3/uL (0-0.2); Basophils % (auto) 0.4 % (0.0-2.0); Eosinophils # (auto) 0.2 10 ^3/uL (0-0.8); Eosinophils % (auto) 1.2 % (0.0-7.0); Hematocrit 38.4 % (41.0-53.0); Hemoglobin 12.6 g/dL (13.5-17.5); Lymphocytes # (auto) 2.4 10 ^3/uL (0.4-5.4); Lymphocytes % (auto) 19.6 % (10.0-50.0); Mean Corpuscular Hemoglobin 28.3 pg (28.0-32.0); Mean Corpuscular Hgb Conc. 32.9 g/dL (32.0-36.0); Monocytes # (auto) 0.9 10 ^3/uL (0-1.3); Monocytes % (auto) 7.7 % (0.0-12.0); Neutrophils # (auto) 8.8 10 ^3/uL (1.6-8.6); Neutrophils % (auto) 71.1 % (37.0-80.0); Red Blood Cells 4.46 10^6/uL (4.5-5.90); Red Cell Distribution Width 17.8 % (11.8-14.3); White Blood Cell 12.3 10^3/uL (4.4-10.8)
[2023-09-16] MEDS: HYDROcodone-ACET 5/325MG TAB PO ONE (19:14)
[2023-09-16 19:15] LABS: INR 1.12 (0.9-1.15); Partial Thromboplastin Time 33.7 SEC (24.5-34.5); Prothrombin Time 11.7 sec (9.3-11.8)
[2023-09-16] MEDS ORDERED: ESMOLOL HCL-NS 10MG/ML 250 ML IV SCH (19:15)
[2023-09-16 19:16] LABS: Alanine Aminotransferase 27 U/L (7-40); Alkaline Phosphatase 135 U/L (46-116); Anion Gap 7 (5-15); Aspartate Aminotransferase 30 U/L (13-40); BUN/Creatinine Ratio 28.3 (10.0-20.0); Blood Urea Nitrogen 26 mg/dL (9-23); Calcium 8.6 mg/dL (8.7-10.4); Carbon Dioxide 23 mmol/L (20-30); Chloride 106 mmol/L (98-107); Glucose 110 mg/dL (74-106); Potassium 4.3 mmol/L (3.5-5.1); Sodium 136 mmol/L (136-145)
[2023-09-16 19:17] LABS: Albumin 3.8 g/dL (3.2-4.8); Bilirubin, Total 0.9 mg/dL (0.2-1.0); Total Protein 7.9 g/dL (5.7-8.2)
[2023-09-16 19:32] LABS: Lactic Acid w/Reflex 2.2 mmol/L (0.4-2.0)
[2023-09-16 20:14] VITALS: PULSE 91; RESP 18; O2SAT 100
[2023-09-16] MEDS: cefTRIAXone 1GM/50ML D5W 50 ML IV ONE (20:31)
[2023-09-16] MEDS: SODIUM CHLORIDE 0.9% 1,000 ML IV ONE (20:31)
[2023-09-16] MEDS: DexAMETHasone SOD PHOS 10MG/1ML VIAL INJ IV ONE (20:31)
[2023-09-16 21:17] LABS: Urine Bacteria NONE SEEN /hpf (None Seen); Urine Blood Negative /uL (Negative); Urine Clarity Clear (Clear); Urine Color Yellow (Yellow); Urine Protein, UAD TRACE (Negative); Urine Specific Gravity 1.038 (1.001-1.035); Urine Urobilinogen Normal (Negative); Urine WBC 2 /hpf (0 - 3); Urine pH 5.5 (5.0-8.0)
[2023-09-17] MEDS ORDERED: DOCUSATE SOD 100 MG CAP PO PRN (00:15)
[2023-09-17] MEDS ORDERED: NITROGLYCERIN 0.4 MG SL TAB SL PRN (00:15)
[2023-09-17] MEDS ORDERED: ACETAMINOPHEN 325 MG TAB PO PRN (00:15)
[2023-09-17] MEDS ORDERED: MORPHINE SULFATE INJ 2 MG/ml SYRG IV PRN (00:15)
[2023-09-17] MEDS: SODIUM CHLORIDE 0.9% 1,000 ML IV SCH (02:00)
[2023-09-17] MEDS: HYDROcodone-ACET 5/325MG TAB PO PRN (04:41)
[2023-09-17 05:40] LABS: Basophils # (auto) 0 10 ^3/uL (0-0.2); Basophils % (auto) 0.1 % (0.0-2.0); Eosinophils # (auto) 0 10 ^3/uL (0-0.8); Hematocrit 37.3 % (41.0-53.0); Hemoglobin 12.2 g/dL (13.5-17.5); Lymphocytes # (auto) 0.8 10 ^3/uL (0.4-5.4); Lymphocytes % (auto) 9.3 % (10.0-50.0); Mean Corpuscular Hemoglobin 28.3 pg (28.0-32.0); Mean Corpuscular Hgb Conc. 32.7 g/dL (32.0-36.0); Mean Corpuscular Volume 86.4 fL (80.0-100.0); Monocytes # (auto) 0.1 10 ^3/uL (0-1.3); Monocytes % (auto) 1.6 % (0.0-12.0); Neutrophils # (auto) 7.5 10 ^3/uL (1.6-8.6); Red Blood Cells 4.32 10^6/uL (4.5-5.90); Red Cell Distribution Width 17.6 % (11.8-14.3); White Blood Cell 8.5 10^3/uL (4.4-10.8)
[2023-09-17 05:57] LABS: Alanine Aminotransferase 22 U/L (7-40); Albumin 3.9 g/dL (3.2-4.8); Alkaline Phosphatase 126 U/L (46-116); Anion Gap 11 (5-15); Aspartate Aminotransferase 23 U/L (13-40); BUN/Creatinine Ratio 26.9 (10.0-20.0); Bilirubin, Total 0.6 mg/dL (0.2-1.0); Blood Urea Nitrogen 25 mg/dL (9-23); Calcium 8.5 mg/dL (8.7-10.4); Carbon Dioxide 19 mmol/L (20-30); Chloride 105 mmol/L (98-107); Sodium 135 mmol/L (136-145)
[2023-09-17 05:58] LABS: Total Protein 7.9 g/dL (5.7-8.2)
[2023-09-17 06:02] LABS: Glucose 239 mg/dL (74-106)
[2023-09-17] MEDS: LEVOTHYROXINE SODIUM 50 MCG TAB PO SCH (07:00)
[2023-09-17 09:00] VITALS: BP 107/63; PULSE 86; RESP 22; TEMP 97.7; O2SAT 96
[2023-09-17] MEDS: FAMOTIDINE (10MG/ML) 2ML VL IV SCH (10:15)
[2023-09-17] MEDS: CLOPIDOGREL BISULFATE 75 MG TAB PO SCH (10:15)
[2023-09-17] MEDS ORDERED: DIPH1TAB30 PO (11:09)
[2023-09-17 13:00] VITALS: BP 133/69; PULSE 71; RESP 18; TEMP 97.8; O2SAT 98
[2023-09-17] MEDS: methylPREDNISolone SOD SUCC 40 MG/ML VL IV SCH (13:26)
[2023-09-17] MEDS: ONDANSETRON HCL 4 MG/2 ML VIAL IV PRN (16:11)
[2023-09-17 17:00] VITALS: BP 106/58; PULSE 83; RESP 20; TEMP 97.9; O2SAT 98
[2023-09-17 20:00] VITALS: PULSE 68; PULSE 73; RESP 20; O2SAT 95
[2023-09-17 21:07] VITALS: BP 119/63; PULSE 68; RESP 19; TEMP 97.6; O2SAT 97
[2023-09-17] MEDS: cefTRIAXone 1GM/50ML D5W 50 ML IV SCH (21:37)
[2023-09-18] VITALS (9 sets, daily range): BP systolic 115–140; BP diastolic 63–74; PULSE 53–84; RESP 18–19; TEMP 97.4–98.2; O2SAT 96–98
[2023-09-18 06:27] LABS: Basophils # (auto) 0 10 ^3/uL (0-0.2); Basophils % (auto) 0.1 % (0.0-2.0); Eosinophils # (auto) 0 10 ^3/uL (0-0.8); Hematocrit 33.5 % (41.0-53.0); Hemoglobin 10.7 g/dL (13.5-17.5); Lymphocytes # (auto) 1.1 10 ^3/uL (0.4-5.4); Lymphocytes % (auto) 8.9 % (10.0-50.0); Mean Corpuscular Hemoglobin 27.9 pg (28.0-32.0); Mean Corpuscular Volume 87.1 fL (80.0-100.0); Monocytes # (auto) 0.3 10 ^3/uL (0-1.3); Monocytes % (auto) 2.1 % (0.0-12.0); Neutrophils # (auto) 10.9 10 ^3/uL (1.6-8.6); Neutrophils % (auto) 88.9 % (37.0-80.0); Nucleated Red Blood Cells % 0.1 %; Red Blood Cells 3.85 10^6/uL (4.5-5.90); White Blood Cell 12.3 10^3/uL (4.4-10.8)
[2023-09-18 06:39] LABS: Alanine Aminotransferase 23 U/L (7-40); Albumin 3.3 g/dL (3.2-4.8); Alkaline Phosphatase 93 U/L (46-116); Anion Gap 6 (5-15); Aspartate Aminotransferase 23 U/L (13-40); BUN/Creatinine Ratio 27.6 (10.0-20.0); Bilirubin, Total 0.3 mg/dL (0.2-1.0); Blood Urea Nitrogen 21 mg/dL (9-23); Calcium 8.2 mg/dL (8.5-10.1); Carbon Dioxide 22 mmol/L (20-30); Chloride 111 mmol/L (98-107); Glucose 167 mg/dL (74-106); Sodium 139 mmol/L (136-145); Total Protein 6.4 g/dL (5.7-8.2)
[2023-09-18] MEDS: FAMOTIDINE 20 MG TAB PO SCH (10:13)
[2023-09-19] VITALS (10 sets, daily range): BP systolic 125–147; BP diastolic 55–79; PULSE 52–92; RESP 16–21; TEMP 97.5–98.4; O2SAT 95–99
[2023-09-19] MEDS: predniSONE 20 MG TAB PO SCH (09:24)
[2023-09-19 10:28] LABS: Erythrocyte Sedimentation Rate 64 mm/hr (0-20)
[2023-09-19] MEDS: AZITHROMYCIN 250 MG TAB PO ONE (14:52)
[2023-09-20] VITALS (8 sets, daily range): BP systolic 121–152; BP diastolic 8–92; PULSE 60–81; RESP 14–19; TEMP 97.4–98; O2SAT 96–98
[2023-09-20 06:11] LABS: Basophils # (auto) 0 10 ^3/uL (0-0.2); Eosinophils # (auto) 0 10 ^3/uL (0-0.8); Hemoglobin 10.3 g/dL (13.5-17.5); Lymphocytes # (auto) 1.6 10 ^3/uL (0.4-5.4); Lymphocytes % (auto) 13.9 % (10.0-50.0); Mean Corpuscular Hemoglobin 27.6 pg (28.0-32.0); Mean Corpuscular Hgb Conc. 32.3 g/dL (32.0-36.0); Mean Corpuscular Volume 85.7 fL (80.0-100.0); Monocytes # (auto) 0.8 10 ^3/uL (0-1.3); Monocytes % (auto) 6.7 % (0.0-12.0); Neutrophils # (auto) 9.1 10 ^3/uL (1.6-8.6); Neutrophils % (auto) 79.4 % (37.0-80.0); Red Blood Cells 3.74 10^6/uL (4.5-5.90); Red Cell Distribution Width 17.3 % (11.8-14.3); White Blood Cell 11.5 10^3/uL (4.4-10.8)
[2023-09-20 06:22] LABS: Calcium 7.5 mg/dL (8.5-10.1); Chloride 109 mmol/L (98-107); Potassium 3.2 mmol/L (3.5-5.1); Sodium 140 mmol/L (136-145)
[2023-09-20 06:23] LABS: Anion Gap 7 (5-15); Carbon Dioxide 24 mmol/L (20-30)
[2023-09-20 06:28] LABS: BUN/Creatinine Ratio 32.4 (10.0-20.0); Blood Urea Nitrogen 24 mg/dL (9-23); Glucose 99 mg/dL (74-106)
[2023-09-20] MEDS: POTASSIUM CHL 20 Meq TABLET PO ONE (10:55)
[2023-09-20] MEDS: AZITHROMYCIN 250 MG TAB PO SCH (10:55)
[2023-09-21] VITALS (8 sets, daily range): BP systolic 133–144; BP diastolic 66–90; PULSE 61–93; RESP 12–22; TEMP 97.5–98.6; O2SAT 95–97
[2023-09-22] VITALS (8 sets, daily range): BP systolic 116–154; BP diastolic 67–95; PULSE 50–89; RESP 17–22; TEMP 97.6–98; O2SAT 94–99
[2023-09-22] MEDS: LIDOCAINE 2% (LOCAL ANESTH.) PF 5ml SDV IJ ONE (09:38)
[2023-09-22] MEDS: TRIAMCINOLONE 40MG/ML 1ML VIAL IX ONE (09:38)
[2023-09-23 01:00] VITALS: BP 122/69; PULSE 75; RESP 18; TEMP 98.1; O2SAT 95
[2023-09-23 05:00] VITALS: BP 122/66; PULSE 79; RESP 22; TEMP 97.5; O2SAT 96
[2023-09-23 09:13] VITALS: BP 135/78; PULSE 72; RESP 15; TEMP 98.1; O2SAT 96
[2023-09-23 13:00] VITALS: BP 145/64; PULSE 62; RESP 18; TEMP 98.7; O2SAT 96
[2023-09-23 15:06] VITALS: BP 143/64; PULSE 96; RESP 18; TEMP 98.7; O2SAT 96
== END 2023-09-23 18:50 | disposition home health service (06) | DRG 546 ==
LOC: EDBD 16:38 → ER 16:38 → TELE 09-17 00:23 → TELE-WESTW 09-17 00:23
PROVIDERS: ADMIT Nurse Practitioner Family; ATTEND Internal Medicine Cardiovascular Disease
DX: M06.861 Other specified rheumatoid arthritis, right knee (principal); E87.21 Acute metabolic acidosis; I50.22 Chronic systolic (congestive) heart failure; I13.0 Hypertensive heart and chronic kidney disease with heart failure and stage 1 through stage 4 chronic kidney disease, or unspecified chronic kidney disease; M25.462 Effusion, left knee; E78.00 Pure hypercholesterolemia, unspecified; E86.0 Dehydration; K21.9 Gastro-esophageal reflux disease without esophagitis; M25.461 Effusion, right knee; I25.10 Atherosclerotic heart disease of native coronary artery without angina pectoris; E03.9 Hypothyroidism, unspecified; E87.6 Hypokalemia; M81.0 Age-related osteoporosis without current pathological fracture; N18.9 Chronic kidney disease, unspecified; Z79.631 Long term (current) use of antimetabolite agent; Z86.11 Personal history of tuberculosis; Z95.5 Presence of coronary angioplasty implant and graft; Z87.891 Personal history of nicotine dependence; Z79.02 Long term (current) use of antithrombotics/antiplatelets; Z95.0 Presence of cardiac pacemaker
CPT/HCPCS: 36415; 71045; 80048; 80053; 81001; 83605; 83880; 84443; 84484; 85025; 85610; 85652; 85730; 86141; 87040; 93005; 96361; 96374; G0378; J1100; J2001; J2405; J3490

== ENCOUNTER → 2025-01-31 | Outpatient (CLI) | payer MEDICARE, OTHER ==
[~2025-01-31] MED LIST changes: +DIPH1TAB30 PO; -DULO60CA41 PO; -POM
== END | disposition home or self-care (01) ==
LOC: Rad HDHVI 15:49
PROVIDERS: ATTEND Internal Medicine Cardiovascular Disease
DX: I08.1 Rheumatic disorders of both mitral and tricuspid valves (principal); I25.5 Ischemic cardiomyopathy
CPT/HCPCS: 93306

== ENCOUNTER 2025-06-27 18:40 | Inpatient (IN) | payer MEDICARE, OTHER ==
[~2025-06-27] VITALS: Ht 172.7 cm; Wt 82.0 kg
--- NOTE | 2025-06-27 18:51 | ED.PDOC ---
HPI Comments discharge diagnosis from 09/22/23 WEAKNESS BILATERAL KNEE EFFUSION ACUTE RA FLARE GENERALIZED WEAKNESS S/P RIGHT HIP FRACTURE S/P RIGHT HIP ARTHROPLASTYAn 82-year-old with history of hypertension, now with syncope. s/p BiV AICD HFrEF CHRONIC HPI: 84 year old male presents to the ED via EMS with a chief compliant of a-fib onset today. Per EMS, initial 911 call was due to LUQ pain, patient lives at home with . In route to ED, EKG was done, showed a-fib, RVR. Patient is a poor historian, states he is currently not experiencing any pain. Upon ED arrival, it was unknown to us if patient had a history of CHF prior to administering Diltazem. Me No other symptoms or modifying factors present at this time. Initial Vitals BP: 131/85 HR: 168 RR: 20 O2 Sat: 97% Temp: 98..9 F Past Medical history: Dementia, a-fib, HTN, CAD, Cancer, anxiety, arthritis, GERD Past Surgical history: Pacemaker Medications: Plavix, Tramadol, Methotrexate Social History: Denies smoking, ETOH, and drug use. Allergies: NKDA neri: afib, dementia, plavix, poss luq pain tachy. pale. trace edema HPI: Poor Historian. REVIEW OF SYSTEMS: CONSTITUTIONAL: Denies acute: fever, diaphoresis, chills, HEAD: Denies acute: headache, photophobia Eyes: Denies acute: Double vision, vision loss, eye pain, eye discharge. EARS: Denies acute: tinnitus, hearing loss, ear discharge, ear pain, THROAT: Denies acute: sore throat, swelling, difficulty swallowing , pain with swallowing, change in voice. NECK: Denies acute: neck pain, neck swelling, stiff neck. HEART: Denies acute : chest pain, palpitations, LUNGS: Denies acute: SOB, wheezing, cough, hemoptysis ABDOMEN: Denies acute: Nausea, Vomiting, diarrhea, melena , hematemesis, hematochezia SKIN: Denies acute: rash, redness, lesions, itchiness. EXTREMITIES: Denies acute: calf pain, numbness, tingling, weakness, denies pain in extremity. Denies acute: Low back pain. Neuro: Denies acute: focal neurological deficit, motor or sensory focal neurological deficit, tremors, seizure like activity, confusion, dizziness, change in mental status, loss of bowel or bladder function, cauda equina like symptoms. : Denies acute: dysuria, hematuria, flank pain, increase in urinary frequency. PSYCH: Denies acute: hallucination, suicidal ideation, homicidal ideation. PHYSICAL EXAM: General: --mild----acute distress, awake and alert. Head: normocephalic, atraumatic. No raccoon's eyes, no cade sign. Neck: supple, trachea is midline, no swelling. Throat: Normal phonation. Eyes:, no erythema, no purulent discharge, no proptosis, no icterus. Heart: Tachycardic, no significant murmur appreciated. Lungs: no apparent respiratory distress, Able to speak in full sentences. No wheezing, no rhonchi, no crackles. No stridors Clear to auscultation bilaterally. Abdomen: Nonspecific mild left upper quadrant tender to palpation, non distended, soft, no guarding, no rebound, + bowel sounds. Neuro: Awake, Alert, oriented to name, self, situation, follows commands GCS=15. Speech is normal. Skin: no petechia, no purpura, no cyanosis, slightly-pale, not jaundice. Lower extremities: --trace bilateral - Pitting edema no deformity, no focal swelling, no calf TTP. Makes eye contact. moves all four extremities. Face: no apparent facial droop. ED COURSE: DISCLAIMER: This medical document was created using an electronic medical record system with voice recognition software and computerized dictation system. Although this document has been carefully reviewed, there might still be some phonetic and typographical errors. Occasional wrong-word or "sound-alike" substitutions may have occurred due to the inherent limitations of voice recognition software. These areas are purely typographical due to imperfections of the software programs and do not reflect any compromise in the patient's medical care. Please read the chart carefully and recognize, using context, where these substitutions have occurred. Time Seen by MD: 18:40 Primary Care Provider: RAKEL Reviewed Notes: Medications, Allergies Allergies: Coded Allergies: NO KNOWN ALLERGIES (Unverified , 10/31/22) Home Meds Reported Medications Diphenhydramine-Acetaminophen (Tylenol Pm Extra Strength 500-25 mg) 1 Tab Tab, 1 TAB PO, TAB 09/17/23 Levothyroxine Sodium (Levothyroxine Sodium) 50 Mcg Tab, 0.5 TAB PO DAILY 11/30/22 Potassium Chloride (K-Tabs) 10 Meq Tab 11/30/22 Tramadol Hcl (Tramadol Hcl) 50 Mg Tab, 1 TAB PO BIDPRN PRN for PAIN SCALE 1 THRU 6 11/30/22 Folic Acid (Folic Acid) 1 Mg Tab, 1 MG PO DAILY, MG 10/31/22 Cholecalciferol (VITAMIN D-3) 1,000 Unit Tab, 1000 UNIT PO DAILY for SUPPLEMENT, TAB 10/31/22 Famotidine (Famotidine) 20 Mg Tab, 40 MG PO BID for GERD, MG 10/31/22 Magnesium Oxide (MAGNESIUM OXIDE) 400 Mg Tab, 1 TAB PO DAILY for SUPPLEMENT, #30 TAB 5 Refills 10/31/22 Clopidogrel Bisulfate (Plavix) 75 Mg Tab, 75 MG PO DAILY, TAB 04/02/18 Infliximab (Remicade) 100 Mg Inj, 100 MG IV MONTHLY for PSORIATIC ARTHRITIS, INJ 04/23/14 Clonazepam (Clonazepam) 0.5 Mg Tab, PO DAILYP PRN for ANXIETY, #90 04/23/14 Methotrexate (Methotrexate) 2.5 Mg Tab, 20 MG PO QWEDNESDAY for RHEUMATOID ARTHRITIS, #72 04/23/14 Information Source: Patient, Emergency Med Personnel Mode of Arrival: EMS Timing: Hours Duration: Since onset Prehospital treatment: None Past Medical History PAST MEDICAL HISTORY: Anxiety, Arthritis, CAD, Cancer, GERD, High Lipids, HTN Surgical History: Pacemaker Family History Family History: Unknown Social History Smoker: Non-Smoker Alcohol: Denies ETOH Use Drugs: Denies Drug Use Lives In: Home Was a procedure done? Was a procedure done?: No CP Differential Dx Differential Diagnosis: A-fib, A-Flutter, Angina, Anxiety / Panic Attack, Atrial Dysrhythmia, Digoxin Toxicity, Electrolyte Disorder, Heart Failure, Hyperthyroidism, Hyperventilation, Hypoxia, MAT, MS, PAC's, Pacemaker Malfunction, PSVT, Pulmonary Embolus, PVC's, Renal Failure, Sinus Tachycardia, Torsades De Pointes, Ventricular Dysrhythmia, V-Fib, V-Tach, WPW X-Ray, Labs, Meds, VS Vital Signs Date Time Temp Pulse Resp B/P (MAP) Pulse Ox O2 Delivery O2 Flow Rate FiO2 06/27/25 20:16 131/92 06/27/25 20:00 146 06/27/25 19:45 103/76 06/27/25 19:30 98.1 125 25 130/78 (95) 94 98.1 06/27/25 19:30 Room Air* 0 21 06/27/25 18:56 98.9 168 20 131/85 97 98.9 Lab Test 06/27/25 19:50 Range/Units White Blood Count 18.3 H 4.4-10.8 10^3/uL Red Blood Count 4.62 4.5-5.90 10^6/uL Hemoglobin 14.2 13.5-17.5 g/dL Hematocrit 43.8 41.0-53.0 % Mean Corpuscular Volume 95.0 80.0-100.0 fL Mean Corpuscular Hemoglobin 30.8 28.0-32.0 pg Mean Corpuscular Hemoglobin Concent 32.5 32.0-36.0 g/dL Red Cell Distribution Width 18.4 H 11.8-14.3 % Platelet Count 212 140-450 10^3/uL Mean Platelet Volume 9.0 6.9-10.8 fL Neutrophils (%) (Auto) 86.6 H 37.0-80.0 % Lymphocytes (%) (Auto) 6.6 L 10.0-50.0 % Monocytes (%) (Auto) 6.6 0.0-12.0 % Eosinophils (%) (Auto) 0.0 0.0-7.0 % Basophils (%) (Auto) 0.2 0.0-2.0 % Neutrophils # (Auto) 15.8 H 1.6-8.6 10 ^3/uL Lymphocytes # (Auto) 1.2 0.4-5.4 10 ^3/uL Monocytes # (Auto) 1.2 0-1.3 10 ^3/uL Eosinophils # (Auto) 0 0-0.8 10 ^3/uL Basophils # (Auto) 0 0-0.2 10 ^3/uL Nucleated Red Blood Cells 0.1 % Sodium Level 131 L 136-145 mmol/L Potassium Level 5.1 3.5-5.1 mmol/L Chloride Level 99 98-107 mmol/L Carbon Dioxide Level 22 20-31 mmol/L Anion Gap 10 5-15 Blood Urea Nitrogen 42 H 9-23 mg/dL Creatinine 1.38 H 0.700-1.30 mg/dL Glomerular Filtration Rate Calc 50 >90 mL/min BUN/Creatinine Ratio 30.4 H 10.0-20.0 Serum Glucose 163 H 74-106 mg/dL Hemoglobin A1c 5.4 <5.7 % A1C Lactic Acid Level 4.0 *H 0.4-2.0 mmol/L Calcium Level 9.0 8.7-10.4 mg/dL Magnesium Level 2.2 1.6-2.6 mg/dL Total Bilirubin 1.4 H 0.2-1.0 mg/dL Aspartate Amino Transferase (AST) 1498 H 13-40 U/L Alanine Aminotransferase (ALT) 1754 H 7-40 U/L Alkaline Phosphatase 77 46-116 U/L Troponin I High Sensitivity 153 *H </=54 ng/L B-Type Natriuretic Peptide 590.47 0-100 pg/mL Total Protein 6.2 5.7-8.2 g/dL Albumin 3.7 3.2-4.8 g/dL Lipase 26 12-53 U/L Thyroid Stimulating Hormone (TSH) 3.36 0.55-4.78 uIU/mL [place] [id number] Ph: [phone] DIAGNOSTIC IMAGING Diagnostic Imaging Report : [id number] Signed PATIENT: GEOVANNY NERI ACCT: [id number] UNIT: [id number] : 1940 LOC: ER ROOM / BED: / AGE / SEX: 84 / M ADM STATUS: REG ER SERVICE 1846 ORDERING PHYSICIAN: ROSITA STANLEY DO PROCEDURE(s): ABPL - CT AB PEL WO CON-NO ORAL OR IV REASON: poss abd pain ORDER NUMBER(s): [id number], ACCESSION NUMBER(s): [id number] EXAM: CT CT AB PEL WO CON-NO ORAL OR IV HISTORY: poss abd pain COMPARISON STUDY: CT CT AB PEL WO CON-NO ORAL OR IV on DOS: 02/18/23, CT CT AB PEL WO CON-NO ORAL OR IV on DOS: 11/26/22, [facility] on DOS: 09/20/21 TECHNIQUE: Multidetector CT of the abdomen and pelvis was performed from lung bases to pubic symphysis. Imaging was performed without IV contrast. Axial, coronal, and sagittal multiplanar reformats were obtained from the axial data set by the technologist. RADIATION DOSE: CTDI vol 15.6 mGy. DLP 885.3 mGy.cm FINDINGS: Limited evaluation of the solid organs in the absence of IV contrast. Lungs: Incompletely assessed small bilateral pleural effusions with adjacent opacity. Fibrotic changes are seen within the lower lobes. Liver: Unremarkable. Spleen: Unremarkable. Pancreas: Unremarkable. Gallbladder: Cholelithiasis/biliary sludge. Adrenals: Unremarkable Kidneys: Unremarkable. Pelvic Viscera: Evaluation is degraded by streak artifact from adjacent left hip hardware. Vasculature: Atherosclerotic aortoiliac calcification. Retroperitoneum: Mild abdominopelvic ascites and mesenteric stranding. Bowel: Colonic diverticulosis with out CT evidence of diverticulitis. Portions of the bowel are decompressed, limiting assessment. Musculoskeletal: Prior left hip arthroplasty. A gamma nail and intramedullary roro are present within the right proximal femur. Soft tissues: Unremarkable IMPRESSION: 1. Mild abdominopelvic ascites and mesenteric stranding. 2. Incompletely assessed small bilateral pleural effusions with adjacent opacity. Superimposed infectious/ inflammatory process cannot be excluded in the appropriate clinical setting. 3. Additional findings as detailed. ATED BY: JACOBO MIX MD DICTATED DATE/TIME: 06/27/252005 SIGNED BY: JACOBO MIX MD SIGNED DATE/TIME: 06/27/252005 CC: Time of 1ST Reevaluation: 19:10 Reevaluation 1ST: Unchanged Patient Education/Counseling: Diagnosis, Treatment Family Education/Counseling: No Family Present Comments MDM: patient presented with the above HPI.--atrial fibrillation with RVR-and abdominal pain---workup was initiated. patient was found with the above mentioned diagnosis. the following medications were ordered: please refer to order lists of meds and tests obtained by myself Dr. Stanley. Patient ED course and VS have been stabilized. Patient has been reassessed in the ED and remained in a stable condition. Patient/family voices understanding and is agreeable with plan. Patient has been observed in the ED adequate length of time to insure improvement/stability. Escalation of care considered: Consideration of escalation to observation or admission Sepsis protocol was initiated immediately with conservative fluid resuscitation. Patient initially given diltiazem for rate control but later we discovered that he has history of CHF. This was discontinued and we use a different medication for rate control. Patient was ADMITTED to the medicine team for further evaluation and treatment of their presentation. All the reports of any imaging studies that were ordered by myself were reviewed by myself. Departure 1 Departure Time of Disposition: 19:42 Impression: Primary Impression: Atrial fibrillation with RVR Additional Impressions: Elevated LFTs Leukocytosis Sepsis Disposition: ADMITTED INPATIENT Admit to: Tele Condition: Guarded Discharged With: Self Critical Care Note Critical Care Time?: Yes (45 min-critical care time only) Critical care comment: Due to a high probability of clinically significant, life threatening deterioration, the patient required my highest level of preparedness to intervene emergently and I personally spent this critical care time directly and personally managing the patient. This critical care time included obtaining a history; examining the patient; pulse oximetry; ordering and review of studies; arranging urgent treatment with development of a management plan; evaluation of patient's response to treatment; frequent reassessment; and, discussions with other providers. This critical care time was performed to assess and manage the high probability of imminent, life-threatening deterioration that could result in multi-organ failure. It was exclusive of separately billable procedures and treating other patients and teaching time. Please see my other sections and the rest of the note for further information on patient assessment and treatment. Heart Score Heart Score: Heart Score Response (Comments) Value History N/A 0 EKG N/A 0 Age N/A 0 Risk Factors N/A 0 Troponin N/A 0 Total 0 I personally scribed for ROSITA STANLEY DO ([email or web address]) on 06/27/25 at 18:50. Electronically submitted by Catherine Ortiz ([email or web address]). I personally scribed for ROSITA STANLEY DO ([email or web address]) on 06/27/25 at 20:13. Electronically submitted by Catherine Ortiz ([email or web address]). I personally scribed for ROSITA STANLEY DO ([email or web address]) on 06/27/25 at 21:00. Electronically submitted by Catherine Ortiz ([email or web address]). ROSITA STANLEY DO Jun 27, 2025 18:50
--- NOTE | 2025-06-27 20:09 | DVH ---
EXAM: CT CT AB PEL WO CON-NO ORAL OR IV HISTORY: poss abd pain COMPARISON STUDY: CT CT AB PEL WO CON-NO ORAL OR IV on DOS: 02/18/23, CT CT AB PEL WO CON-NO ORAL OR IV on DOS: 11/26/22, [facility] on DOS: 09/20/21 TECHNIQUE: Multidetector CT of the abdomen and pelvis was performed from lung bases to pubic symphysis. Imaging was performed without IV contrast. Axial, coronal, and sagittal multiplanar reformats were obtained from the axial data set by the technologist. RADIATION DOSE: CTDI vol 15.6 mGy. DLP 885.3 mGy.cm FINDINGS: Limited evaluation of the solid organs in the absence of IV contrast. Lungs: Incompletely assessed small bilateral pleural effusions with adjacent opacity. Fibrotic changes are seen within the lower lobes. Liver: Unremarkable. Spleen: Unremarkable. Pancreas: Unremarkable. Gallbladder: Cholelithiasis/biliary sludge. Adrenals: Unremarkable Kidneys: Unremarkable. Pelvic Viscera: Evaluation is degraded by streak artifact from adjacent left hip hardware. Vasculature: Atherosclerotic aortoiliac calcification. Retroperitoneum: Mild abdominopelvic ascites and mesenteric stranding. Bowel: Colonic diverticulosis with out CT evidence of diverticulitis. Portions of the bowel are decompressed, limiting assessment. Musculoskeletal: Prior left hip arthroplasty. A gamma nail and intramedullary roro are present within the right proximal femur. Soft tissues: Unremarkable IMPRESSION: 1. Mild abdominopelvic ascites and mesenteric stranding. 2. Incompletely assessed small bilateral pleural effusions with adjacent opacity. Superimposed infectious/ inflammatory process cannot be excluded in the appropriate clinical setting. 3. Additional findings as detailed.
[2025-06-27] MEDS ORDERED: ACETAMINOPHEN 325 MG TAB PO PRN (20:15)
[2025-06-27] MEDS ORDERED: DOCUSATE SOD 100 MG CAP PO PRN (20:15)
[2025-06-27] MEDS ORDERED: ONDANSETRON HCL 4 MG/2 ML VIAL IV PRN (20:15)
[2025-06-27 20:21] LABS: Hematocrit 43.8 % (41.0-53.0); Hemoglobin 14.2 g/dL (13.5-17.5); Mean Corpuscular Hemoglobin 30.8 pg (28.0-32.0); Mean Corpuscular Volume 95.0 fL (80.0-100.0); Nucleated Red Blood Cells % 0.1 %
[2025-06-27] MEDS ORDERED: NITROGLYCERIN 0.4 MG SL TAB SL PRN (20:30)
[2025-06-27 20:36] LABS: Albumin 3.7 g/dL (3.2-4.8); Alkaline Phosphatase 77 U/L (46-116); Anion Gap 10 (5-15); BUN/Creatinine Ratio 30.4 (10.0-20.0); Calcium 9.0 mg/dL (8.7-10.4); Carbon Dioxide 22 mmol/L (20-31); Chloride 99 mmol/L (98-107); Lipase 26 U/L (12-53); Total Protein 6.2 g/dL (5.7-8.2)
[2025-06-27 20:37] LABS: Bilirubin, Total 1.4 mg/dL (0.2-1.0); Magnesium 2.2 mg/dL (1.6-2.6)
[2025-06-27] MEDS: HYDROcodone-ACET 5/325MG TAB PO PRN (20:38)
[2025-06-27 20:39] LABS: Lactic Acid w/Reflex 4.0 mmol/L (0.4-2.0)
--- NOTE | 2025-06-27 20:42 | DVHHP2 ---
History of Present Illness Reason for Visit: Atrial fibrillation with RVR History of Present Illness The patient is a 84-year-old male with multiple past medical history including atrial fibrillation, hypertension, anxiety, dementia, and Coronary artery disease who presented to [facility] with complaint of palpitations. Patient reports that she has been experiencing left upper quadrant pain, racing heart sensation, so 911 was called. When EMS arrived on the scene, initial EKG showed atrial fibrillation with RVR EN route to our facility ED. Patient was seen and evaluated in the ED, laboratory data shows WBC 18.3, platelets 212, sodium 131, potassium 5.1, BUN 42, creatinine 1.38, GFR 50, glucose 163, calcium 9.0, TSH 3.36, troponin 140, lactic acid 3.5, total bilirubin 1.4, ALT 1498, ALT 1754, BNP 590.47, blood pressure 130/78, heart rate 168 trending down to 110, temperature 98.1 F, O2 saturation 95% on oxygen. Abdomen/pelvis CT revealing mi ld abdominopelvic ascites and mesenteric stranding. Chest x-ray revealing cardiomegaly with increased interstitial prominence, this may represent pulmonary vascular congestion and/or viral pneumonia. Patient was started on IV antibiotic regimen Zosyn, please see medication orders section in the computer. On my assessment, at bedside, patient denied chest pain, no headache, diz ziness, diaphoresis, currently on oxygen, no abdominal pain, diarrhea, nausea, vomiting, fever, no chills. Patient was admitted for further evaluation and medical management. Past Medical History Dementia, A-fib, HTN, CAD, Cancer, anxiety, Arthritis, GERD Past Surgical History Pacemaker Family History Reviewed, noncontributory to the management of this case. Past Social History The patient lives at home, denies smoking, alcohol or illicit drugs abuse. Review of Systems Constitutional: Yes: Weakness; No: Fever, Chills, Sweats, Malaise, Other Eyes: No: Pain, Vision change, Conjunctivae inflammation, Eyelid inflammation, Other, Redness ENT: No: Ear pain, Ear discharge, Nose pain, Nose discharge, Nose congestion, Mouth pain, Mouth swelling, Throat pain, Throat swelling, Other Respiratory: Shortness of breath; No: Cough, Dry, SOB with excertion, Wheezing, Hemoptysis, Pleuritic Pain, Sputum, Wheezing, Other Cardiovascular: No: Chest Pain, Palpitations, Orthopnea, Paroxysmal Noc. Dyspnea, Edema, Lt Headedness, Other Gastrointestinal: No: Nausea, Vomiting, Abdominal Pain, Diarrhea, Constipation, Melena, Hematochezia, Other Genitourinary: No Dysuria, No Frequency, No Incontinence, No Hematuria, No Retention, No Other Musculoskeletal: No: other, neck pain, shoulder pain, arm pain, back pain, hand pain, leg pain, foot pain Skin: No: Rash, Lesions, Jaundice, Bruising, Other Neurological: No: Weakness, Numbness, Incoordination, Change in speech, Confusion, Seizures, Other Allergies: Coded Allergies: NO KNOWN ALLERGIES (Unverified , 10/31/22) Medications Current Medications Medications Dose Ordered Sig/Shemar Route Start Time Stop Time Status Last Admin Dose Admin Famotidine 20 mg DAILY IV 06/28/25 10:00 Atorvastatin Calcium 20 mg HS PO 06/27/25 22:00 Metoprolol Tartrate 25 mg BID PO 06/27/25 22:00 Levothyroxine Sodium 50 mcg QAM@0600 PO 06/28/25 06:00 Clopidogrel Bisulfate 75 mg DAILY PO 06/28/25 10:00 Sodium Chloride 10 ml Q8HR IV 06/27/25 22:00 Acetaminophen/ Hydrocodone Bitart 1 tab Q4HP PRN PO 06/27/25 20:15 Ondansetron HCl 4 mg Q4HP PRN IV 06/27/25 20:15 Docusate Sodium 100 mg BIDPRN PRN PO 06/27/25 20:15 Acetaminophen 650 mg Q6HP PRN PO 06/27/25 20:15 Amiodarone HCl 200 mg Q12HR PO 06/27/25 22:00 Exam Vital Signs Vital Signs Date Time Temp Pulse Resp B/P (MAP) Pulse Ox O2 Delivery O2 Flow Rate FiO2 06/27/25 20:16 131/92 06/27/25 19:30 98.1 125 25 94 98.1 06/27/25 19:30 Room Air* 0 21 General Appearance: Alert, Oriented X3, Cooperative, No acute distress HEENT: Atraumatic, PERRLA, EOMI, Mucous membr. moist/pink Respiratory: Normal air movement, Other (Diminished breath sounds) Cardiovascular: Regular rate, Normal S1, Normal S2, No murmurs Abdominal: Normal bowel sounds, Soft, No tenderness, No hepatospenomegaly, No masses Extremities: No clubbing, No cyanosis, No edema, Normal pulses, No tenderness/swelling Skin: No rashes, No significant lesion Neuro: Normal speech, Normal tone, Sensation intact, Cranial nerves 3-12 NL, Reflexes 2+, Other (Generalized weakness) Psych/Mental Status: Mental status NL, Mood NL Labs/Xrays Labs Test 06/27/25 19:50 Range/Units White Blood Count 18.3 H 4.4-10.8 10^3/uL Red Blood Count 4.62 4.5-5.90 10^6/uL Hemoglobin 14.2 13.5-17.5 g/dL Hematocrit 43.8 41.0-53.0 % Mean Corpuscular Volume 95.0 80.0-100.0 fL Mean Corpuscular Hemoglobin 30.8 28.0-32.0 pg Mean Corpuscular Hemoglobin Concent 32.5 32.0-36.0 g/dL Red Cell Distribution Width 18.4 H 11.8-14.3 % Platelet Count 212 140-450 10^3/uL Mean Platelet Volume 9.0 6.9-10.8 fL Neutrophils (%) (Auto) 86.6 H 37.0-80.0 % Lymphocytes (%) (Auto) 6.6 L 10.0-50.0 % Monocytes (%) (Auto) 6.6 0.0-12.0 % Eosinophils (%) (Auto) 0.0 0.0-7.0 % Basophils (%) (Auto) 0.2 0.0-2.0 % Neutrophils # (Auto) 15.8 H 1.6-8.6 10 ^3/uL Lymphocytes # (Auto) 1.2 0.4-5.4 10 ^3/uL Monocytes # (Auto) 1.2 0-1.3 10 ^3/uL Eosinophils # (Auto) 0 0-0.8 10 ^3/uL Basophils # (Auto) 0 0-0.2 10 ^3/uL Nucleated Red Blood Cells 0.1 % Lactic Acid Level 4.0 *H 0.4-2.0 mmol/L Total Bilirubin 1.4 H 0.2-1.0 mg/dL PATIENT: GEOVANNY THOMSON ACCT: [id number] UNIT: [id number] : 1940 LOC: ER ROOM / BED: / AGE / SEX: 84 / M ADM STATUS: REG ER SERVICE 45 ORDERING PHYSICIAN: ROSITA STANLEY DO PROCEDURE(s): ABPL - CT AB PEL WO CON-NO ORAL OR IV REASON: poss abd pain ORDER NUMBER(s): [id number], ACCESSION NUMBER(s): [id number] EXAM: CT CT AB PEL WO CON-NO ORAL OR IV HISTORY: poss abd pain COMPARISON STUDY: CT CT AB PEL WO CON-NO ORAL OR IV on DOS: 02/18/23, CT CT AB PEL WO CON-NO ORAL OR IV on DOS: 11/26/22, [facility] on DOS: 09/20/21 TECHNIQUE: Multidetector CT of the abdomen and pelvis was performed from lung bases to pubic symphysis. Imaging was performed without IV contrast. Axial, coronal, and sagittal multiplanar reformats were obtained from the axial data set by the technologist. RADIATION DOSE: CTDI vol 15.6 mGy. DLP 885.3 mGy.cm FINDINGS: Limited evaluation of the solid organs in the absence of IV contrast. Lungs: Incompletely assessed small bilateral pleural effusions with adjacent opacity. Fibrotic changes are seen within the lower lobes. Liver: Unremarkable. Spleen: Unremarkable. Pancreas: Unremarkable. Gallbladder: Cholelithiasis/biliary sludge. Adrenals: Unremarkable Kidneys: Unremarkable. Pelvic Viscera: Evaluation is degraded by streak artifact from adjacent left hip hardware. Vasculature: Atherosclerotic aortoiliac calcification. Retroperitoneum: Mild abdominopelvic ascites and mesenteric stranding. Bowel: Colonic diverticulosis with out CT evidence of diverticulitis. Portions of the bowel are decompressed, limiting assessment. Musculoskeletal: Prior left hip arthroplasty. A gamma nail and intramedullary roro are present within the right proximal femur. Soft tissues: Unremarkable IMPRESSION: 1. Mild abdominopelvic ascites and mesenteric stranding. 2. Incompletely assessed small bilateral pleural effusions with adjacent opac ity. Superimposed infectious/inflammatory process cannot be excluded in the appropriate clinical setting. 3. Additional findings as detailed. ORDERING PHYSICIAN: ROSITA STANLEY DO PROCEDURE(s): CXRP - CHEST PORTABLE REASON: afib/rvr, LUQ possible pain ORDER NUMBER(s): [id number], ACCESSION NUMBER(s): [id number] CHEST RADIOGRAPH Indication: afib/rvr, LUQ possible pain Technique: Single frontal view of the chest was obtained COMPARISON: XY CHEST PORTABLE on DOS: 09/17/23, XY CHEST PORTABLE on DOS: 05/25/23, XY CHEST PORTABLE on DOS: 02/18/23, XY CHEST XRAY 1 VIEW on DOS: 12/10/22, XY CHEST PORTABLE on DOS: 12/09/22 FINDINGS: Lines and Tubes: Left chest wall AICD. Lungs: Increased interstitial prominence. This may represent pulmonary vascular congestion and/or viral pneumonia. Pleura: No effusion. No pneumothorax. Cardiomediastinal contours: Cardiomegaly. Bones: Unremarkable IMPRESSION: Cardiomegaly with increased interstitial prominence. This may represent pulmonary vascular congestion and/or viral pneumonia. SEPSIS Sepsis Screen Date sepsis recognized/suspect: Jun 27, 2025 Time Sepsis recognized/suspect: 1929 Recent Procedure: No On Antibiotic Therapy: No Respiratory Rate >20: No Heart Rate >90: No Temp<36 C (96.8 F) or >38.3 C: No SBP <90 or MAP <65 mmHG: No New Acute Mental Status Change: No Is the patient on CPAP, BIPAP,: No Physician Orders Circular Shear Operator (06/27/25 ) Heplock Iv (06/27/25 ) B-Type Natriuretic Peptide (06/27/25 18:46) Comprehensive Metabolic Panel (06/27/25 18:46) Lipase (06/27/25 18:46) Troponin-I Hs (06/27/25 18:46) Urinalysis (06/27/25 18:46) Chest Portable (06/27/25 18:46) Electrocardigram (06/27/25 18:46) Ct Ab Pel Wo Con-No Oral Or Iv (06/27/25 18:46) Magnesium (06/27/25 18:46) Troponin-I Hs (06/27/25 19:46) Troponin-I Hs (06/27/25 21:46) Diltiazem 125mg/125ml Bag Kit (Cardizem) (06/27/25 19:00) Famotidine Injection (Pepcid Injection) (06/28/25 10:00) Atorvastatin (Lipitor) (06/27/25 22:00) Metoprolol Tartrate Tablet (Lopressor Ta (06/27/25 22:00) Levothyroxine Tablet (Synthroid Tablet) (06/28/25 06:00) Thyroid Stimulating Hormone (06/27/25 20:11) Clopidogrel Bisulfate (Plavix) (06/28/25 10:00) Allergies (06/27/25 20:11) Code Status (06/27/25 20:11) Sodium Chloride Lock (Saline Lock Ns) (06/27/25 22:00) Oxygen Per Hour (06/27/25 20:11) Hydrocodone-Acet 5/325mg Tab ([place] 5/32 (06/27/25 20:15) Ondansetron Hcl (Zofran) (06/27/25 20:15) Docusate Sodium Capsule (Colace Capsule) (06/27/25 20:15) Fall Risk Precautions In Place QSHIFT (06/27/25 20:11) Complete Blood Count (06/28/25 04:00) Comprehensive Metabolic Panel (06/28/25 04:00) Cardiac Diet-2gna,Lofat,Lochol (06/28/25 Breakfast) Condition: Serious (06/27/25 20:11) Acetaminophen Tablet (Tylenol Tablet) (06/27/25 20:15) Maintain Bed Rest (06/27/25 20:11) Sequential Compression Device (06/27/25 ) Amiodarone Tablet (Cordarone Tablet) (06/27/25 22:00) Magnesium (06/27/25 20:11) Vital Signs Date Time Temp Pulse Resp B/P (MAP) Pulse Ox O2 Delivery O2 Flow Rate FiO2 06/27/25 20:16 131/92 06/27/25 19:45 103/76 06/27/25 19:30 98.1 125 25 130/78 (95) 94 98.1 06/27/25 19:30 Room Air* 0 21 06/27/25 18:56 98.9 168 20 131/85 97 98.9 Laboratory Tests Test 06/27/25 19:50 Lactic Acid Level 4.0 mmol/L (0.4-2.0) *H White Blood Count 18.3 10^3/uL (4.4-10.8) H Medications Medications Dose Ordered Sig/Shemar Route Start Time Stop Time Status Last Admin Dose Admin Diltiazem HCl 125 ml @ 5 mls/hr Q24H ONCE IV 06/27/25 19:00 06/28/25 18:59 06/27/25 19:45 5 MLS/HR Assessment/Plan Assessment/Plan Atrial fibrillation with RVR Hyperglycemia Electrolyte imbalance Elevated liver enzymes Sepsis, unspecified organism Generalized weakness Pneumonia, unspecified organism Acute exacerbation of congestive heart failure Plan 1. Admit to telemetry unit 2. Breathing treatment 3. Pain control management 4. IV antibiotic management 5. Management of fluids and electrolytes 6. Consultation for GI/cardiology 7. Diagnostic test abdomen/pelvis CT 8. DVT prophylaxis-on aspirin 9. Repeat labs CBC, CMP in a.m. 10. Home medication reviewed and reconciled 11. Continue with current medical management 12. Treatment plan discussed with patient and RN. Patient verbalized understanding. Plan discussed with: Patient, Other (RN) My Orders Orders - SHAHIDA YANES DNP Procedure Category Date Status Time Famotidine Injection PHA 06/28/25 In Process (Pepcid Injection) 10:00 Atorvastatin (Lipitor) PHA 06/27/25 In Process 22:00 Metoprolol Tartrate PHA 06/27/25 In Process Tablet (Lopressor Ta 22:00 Levothyroxine Tablet PHA 06/28/25 In Process (Synthroid Tablet) 06:00 Thyroid Stimulating LAB 06/27/25 In Process Hormone 20:11 Clopidogrel Bisulfate PHA 06/28/25 In Process (Plavix) 10:00 Allergies PAM 06/27/25 In Process 20:11 Code Status CODE 06/27/25 Transmitted 20:11 Sodium Chloride Lock PHA 06/27/25 In Process (Saline Lock Ns) 22:00 Oxygen Per Hour RT 06/27/25 Transmitted 20:11 Hydrocodone-Acet PHA 06/27/25 In Process 5/325mg Tab ([place] 20:15 Ondansetron Hcl PHA 06/27/25 In Process (Zofran) 20:15 Docusate Sodium PHA 06/27/25 In Process Capsule (Colace 20:15 Fall Risk Precautions PAM 06/27/[address] 20:11 Complete Blood Count LAB 06/28/25 Verified 04:00 Comprehensive LAB 06/28/25 Verified Metabolic Panel 04:00 Cardiac DIET 06/28/25 Transmitted Diet-2gna,Lofat,Lochol Breakfast Condition: Serious PAM 06/27/25 In Process 20:11 Acetaminophen Tablet PHA 06/27/25 In Process (Tylenol Tablet) 20:15 Maintain Bed Rest PAM 06/27/25 In Process 20:11 Sequential PAM 06/27/25 In Process Compression Device Amiodarone Tablet PHA 06/27/25 In Process (Cordarone Tablet) 22:00 Magnesium LAB 06/27/25 In Process 20:11 Problem List: (1) Atrial fibrillation with RVR (2) Hyperglycemia (3) Electrolyte imbalance (4) Elevated liver enzymes (5) Sepsis, unspecified organism (6) Generalized weakness (7) Pneumonia, unspecified organism (8) Acute exacerbation of congestive heart failure Date of Service: Jun 27, 2025 Billing Provider: SHAHIDA YANES DNP Common Visit Codes: [id number] INP/OBS CARE (HIGH) SHAHIDA YANES DNP Jun 27, 2025 20:42
[2025-06-27] MEDS ORDERED: SODIUM CHLORIDE 0.9% 500 ML IV ONE (20:45)
[2025-06-27] MEDS ORDERED: MORPHINE SULFATE 4 MG/ML SYR/VIAL IV PRN (21:00)
[2025-06-27] MEDS ORDERED: VANCOMYCIN 1GM/250ML KIT 250 ML IV ONE (21:00)
[2025-06-27] MEDS ORDERED: VANCOMYCIN PER PHARMACY 0 MG IV SCH (21:00)
[2025-06-27 21:02] LABS: Alanine Aminotransferase 1754 U/L (7-40); Blood Urea Nitrogen 42 mg/dL (9-23); Glucose 163 mg/dL (74-106); Potassium 5.1 mmol/L (3.5-5.1); Sodium 131 mmol/L (136-145)
--- NOTE | 2025-06-27 21:05 | DVH ---
CHEST RADIOGRAPH Indication: afib/rvr, LUQ possible pain Technique: Single frontal view of the chest was obtained COMPARISON: XY CHEST PORTABLE on DOS: 09/17/23, XY CHEST PORTABLE on DOS: 05/25/23, XY CHEST PORTABLE on DOS: 02/18/23, XY CHEST XRAY 1 VIEW on DOS: 12/10/22, XY CHEST PORTABLE on DOS: 12/09/22 FINDINGS: Lines and Tubes: Left chest wall AICD. Lungs: Increased interstitial prominence. This may represent pulmonary vascular congestion and/or viral pneumonia. Pleura: No effusion. No pneumothorax. Cardiomediastinal contours: Cardiomegaly. Bones: Unremarkable IMPRESSION: Cardiomegaly with increased interstitial prominence. This may represent pulmonary vascular congestion and/or viral pneumonia.
[2025-06-27] MEDS: SODIUM CHLORIDE 0.9% 500 ML IV ONE (21:14)
[2025-06-27 21:31] LABS: INR 1.68 (0.9-1.15); Partial Thromboplastin Time 26.6 SEC (24.5-34.5); Prothrombin Time 16.9 sec (9.3-11.8)
[2025-06-27] MEDS: AMIODARONE BOLUS KIT 100 ML IV ONE (21:44)
[2025-06-27] MEDS: CEFEPIME 1GM/50ML 50 ML IV ONE (21:44)
[2025-06-27] MEDS ORDERED: PIPERACILLIN-TAZOB 3.375GM 100 ML IV SCH (22:00)
[2025-06-27] MEDS: AMIODARONE HCL 200 MG TAB PO SCH (22:00)
[2025-06-27 22:01] LABS: Lactic Acid w/Reflex 3.5 mmol/L (0.4-2.0)
[2025-06-27] MEDS: SODIUM ZIRCONIUM CYCL 10 GM PAK PO ONE (23:00)
[2025-06-27 23:20] LABS: Urine Budding Yeast OCCASIONAL /hpf (None Seen); Urine Protein, UAD 1+ (Negative)
[2025-06-28] VITALS (7 sets, daily range): BP systolic 109–111; BP diastolic 62–76; PULSE 81–136; RESP 18–24; TEMP 97.4; O2SAT 96–99
[2025-06-28] MEDS: ATORVASTATIN 20 MG TAB PO SCH (01:02)
[2025-06-28] MEDS: VANCOMYCIN 1GM/250ML KIT 250 ML IV SCH (01:03)
[2025-06-28] MEDS: METOPROLOL TARTRATE 50 MG TAB PO SCH (01:03)
[2025-06-28] MEDS: SODIUM CHLOR 0.9% PF (SALINE LOCK) 10ML VIAL/SYR IV SCH (01:17)
[2025-06-28] MEDS: FUROSEMIDE 20 MG/2 ML VIAL IV ONE ×2 (01:23→06:03)
[2025-06-28 02:15] LABS: Lactic Acid w/Reflex 4.6 mmol/L (0.4-2.0)
[2025-06-28] MEDS: VANCOMYCIN 1GM/250ML KIT 250 ML IV ONE (02:39)
[2025-06-28 03:23] LABS: Hematocrit 45.4 % (41.0-53.0); Hemoglobin 14.6 g/dL (13.5-17.5); Mean Corpuscular Hemoglobin 31.3 pg (28.0-32.0); Mean Corpuscular Volume 96.9 fL (80.0-100.0); Nucleated Red Blood Cells % 0.5 %
[2025-06-28 03:47] LABS: Alkaline Phosphatase 113 U/L (46-116); Anion Gap 16 (5-15); BUN/Creatinine Ratio 22.9 (10.0-20.0); Chloride 99 mmol/L (98-107); Potassium 4.6 mmol/L (3.5-5.1); Total Protein 6.0 g/dL (5.7-8.2)
[2025-06-28 03:48] LABS: Albumin 3.5 g/dL (3.2-4.8)
[2025-06-28] MEDS: PIPERACILLIN-TAZOB 3.375GM 100 ML IV SCH ×2 (03:51→11:15)
[2025-06-28 04:00] LABS: Alanine Aminotransferase 1682 U/L (7-40); Bilirubin, Total 1.9 mg/dL (0.2-1.0); Blood Urea Nitrogen 30 mg/dL (9-23); Calcium 8.4 mg/dL (8.7-10.4); Carbon Dioxide 15 mmol/L (20-31); Glucose 212 mg/dL (74-106); Sodium 130 mmol/L (136-145)
[2025-06-28 04:30] LABS: Lactic Acid w/Reflex 6.3 mmol/L (0.4-2.0)
[2025-06-28] MEDS: methylPREDNISolone SOD SUCC 125 MG/2 ML VL ONE (05:06)
[2025-06-28] MEDS: SODIUM BICARB 8.4% 50Meq/50ml SYR Vial IV ONE ×2 (05:19→05:30)
[2025-06-28] MEDS: ROCURONIUM 10MG/ML 10ML VIAL IV ONE (05:23)
[2025-06-28] MEDS: ETOMIDATE (2MG/ML) 20ML VIAL IV ONE (05:23)
--- NOTE | 2025-06-28 05:35 | DVH ---
CHEST RADIOGRAPH INDICATION: sob TECHNIQUE: Single frontal view of the chest was obtained COMPARISON: None FINDINGS: Lines and Tubes: Left chest pacer Lungs: Right lower lobe opacity may reflect pneumonia. extensive pulmonary edema. Pleura: Moderate right pleural effusion. No pneumothorax. Cardiomediastinal contours: Cardiomegaly Bones: No acute osseous abnormality. IMPRESSION: 1. Right lower lobe opacity may reflect pneumonia. extensive pulmonary edema. 2. Moderate right pleural effusion.
[2025-06-28] MEDS: LEVOTHYROXINE SODIUM 50 MCG TAB PO SCH (06:00)
[2025-06-28] MEDS: FUROSEMIDE 20 MG/2 ML VIAL ONE (06:07)
[2025-06-28 06:24] LABS: Base Excess -18.8 mmol/L (-2.0-3.0)
[2025-06-28] MEDS: LORazepam 2MG/ML-1ML VIAL IV ONE (06:27)
[2025-06-28 06:59] LABS: Base Excess -10.5 mmol/L (-2.0-3.0)
[2025-06-28] MEDS: IOHEXOL 350 MG/ML 100ML IJ ONE (09:13)
--- NOTE | 2025-06-28 10:20 | DVH ---
EXAM DESCRIPTION: CT CT ANGIO CHEST CONTRAST CLINICAL HISTORY: sob COMPARISON: XY CHEST XRAY 1 VIEW on DOS: 06/28/25, XY CHEST PORTABLE on DOS: 06/27/25, XY CHEST PORTABLE on DOS: 09/17/23, XY CHEST PORTABLE on DOS: 05/25/23, XY CHEST PORTABLE on DOS: 02/18/23 TECHNIQUE:/ CT angiogram of the chest was performed. MPR and MIP images were generated. CTDI/ DLP = 29.6/994.26 Dose reduction technique with one or more of the following methods was performed: Automated exposure control, adjustment of the mA and/or kV according to patient size, use of iterative reconstruction technique. FINDINGS: Lines / Tubes / Devices: Left chest wall AICD / pacemaker in place. Lymph nodes: No suspicious mediastinal, hilar, or axillary lymph nodes. Mediastinum: Moderate cardiomegaly. Aortic valve leaflet calcifications. Coronary artery calcifications. No pericardial effusion. Normal caliber of the thoracic aorta. Severe atherosclerotic vascular calcifications of the aorta. Reflux of contrast into the IVC and hepatic veins. Pulmonary artery: No pulmonary embolism. Normal caliber pulmonary artery. No straightening or bowing of the interventricular septum. Lungs / Airways: A 4 mm pulmonary nodule in the left upper lobe. Subsegmental atelectasis in the lungs bilaterally. Band like atelectasis versus scarring in the bilateral upper lobes. The central airways are patent. Pleura: small - moderate bilateral pleural effusions, possibly loculated. No pneumothorax. Soft tissues: Unremarkable. Bones: No suspicious osseous lesions. Degenerative changes of the visualized spine. Upper abdomen: Gallstones in the gallbladder. IMPRESSION: 1. No evidence of pulmonary embolism. 2. Small to moderate bilateral pleural effusions, possibly loculated. Bilateral subsegmental atelectasis. 3. Reflux of contrast into the IVC and hepatic veins, suggesting elevated right heart pressure. 4. Severe atherosclerotic vascular disease. Coronary artery disease. Moderate cardiomegaly. 5. Cholelithiasis.
[2025-06-28] MEDS: CLOPIDOGREL BISULFATE 75 MG TAB PO SCH (10:36)
[2025-06-28] MEDS: FUROSEMIDE 20 MG/2 ML VIAL IV SCH (10:38)
[2025-06-28] MEDS: FAMOTIDINE (10MG/ML) 2ML VL IV SCH (10:42)
--- NOTE | 2025-06-28 16:53 | DVHPN2 ---
Subjective [facility] and this morning patient noted to be agitated pulling on things. On amiodarone drip. Changes from previous H/P or p: No Changes Eyes: No Pain, No Vision change, No Conjunctivae inflammation, No Eyelid inflammation, No Other, No Redness ENT: No Ear pain, No Ear discharge, No Nose pain, No Nose discharge, No Nose congestion, No Mouth pain, No Mouth swelling, No Throat pain, No Throat swelling, No Other Cardiovascular: No Chest Pain, No Palpitations, No Orthopnea, No Paroxysmal Noc. Dyspnea, No Edema, No Lt Headedness, No Other Respiratory: No Cough, No Dry; Shortness of breath; No SOB with excertion, No Wheezing, No Hemoptysis, No Pleuritic Pain, No Sputum, No Other Gastrointestinal: No Nausea, No Vomiting, No Abdominal Pain, No Diarrhea, No Constipation, No Melena, No Hematochezia, No Other Genitourinary: No Dysuria, No Frequency, No Incontinence, No Hematuria, No Retention, No Other Musculoskeletal: No other, No neck pain, No shoulder pain, No arm pain, No back pain, No hand pain, No leg pain, No foot pain Skin: No Rash, No Lesions, No Jaundice, No Bruising, No Other Objective Vitals Vital Signs Date Time Temp Pulse Resp B/P (MAP) Pulse Ox O2 Delivery O2 Flow Rate FiO2 06/28/25 15:20 97.9 78 18 118/78 (91) 99 97.9 06/28/25 08:00 Nasal Cannula* 2 28 Intake/Output Intake and Output 06/28/25 07:00 Intake Total 1391.64 ml Balance 1391.64 ml Intake IV Total 1391.64 ml Exam Alert and awake but confused. HEENT neck supple no JVD pupils equal round react to light. Heart tachycardia S1 plus S2 without murmurs. Lungs poor inspiratory effort without rales or wheezing. Abdomen soft positive bowel sounds nontender. Extremities no edema positive pulses. Medications Current Medications Medications Dose Ordered Sig/Shemar Route Start Time Stop Time Status Last Admin Dose Admin Famotidine 20 mg DAILY IV 06/28/25 10:00 06/28/25 10:42 20 MG Atorvastatin Calcium 20 mg HS PO 06/27/25 22:00 06/28/25 01:02 20 MG Metoprolol Tartrate 25 mg BID PO 06/27/25 22:00 06/28/25 10:37 25 MG Levothyroxine Sodium 50 mcg QAM@0600 PO 06/28/25 06:00 Clopidogrel Bisulfate 75 mg DAILY PO 06/28/25 10:00 06/28/25 10:36 75 MG Sodium Chloride 10 ml Q8HR IV 06/27/25 22:00 06/28/25 14:23 10 ML Acetaminophen/ Hydrocodone Bitart 1 tab Q4HP PRN PO 06/27/25 20:15 06/27/25 20:38 1 TAB Ondansetron HCl 4 mg Q4HP PRN IV 06/27/25 20:15 Docusate Sodium 100 mg BIDPRN PRN PO 06/27/25 20:15 Acetaminophen 650 mg Q6HP PRN PO 06/27/25 20:15 Nitroglycerin 0.4 mg Q5MINP PRN SL 06/27/25 20:30 Morphine Sulfate 2 mg Q30M PRN IV 06/27/25 21:00 Vancomycin HCl 0 ml @ 0 mls/hr PER PHARMACY IV 06/27/25 21:00 Furosemide 20 mg DAILY IV 06/28/25 10:00 06/28/25 10:38 20 MG Methylprednisolone Sodium Succinate 40 mg Q8HR IV 06/29/25 06:00 Piperacillin Sod/ Tazobactam Sod 100 ml @ 25 mls/hr Q8H IV 06/28/25 11:00 06/28/25 11:15 25 MLS/HR Amiodarone HCl 400 mg Q12HR PO 06/28/25 22:00 Laboratory Results Laboratory Tests 06/28/25 02:50 Chemistry Test 06/27/25 19:50 06/28/25 02:50 Albumin 3.7 g/dL (3.2-4.8) 3.5 g/dL (3.2-4.8) Calcium Level 9.0 mg/dL (8.7-10.4) 8.4 mg/dL (8.7-10.4) L Magnesium Level 2.2 mg/dL (1.6-2.6) Total Protein 6.2 g/dL (5.7-8.2) 6.0 g/dL (5.7-8.2) Coagulation Test 06/27/25 20:50 Prothrombin Time 16.9 sec (9.3-11.8) H Prothrombin Time INR 1.68 (0.9-1.15) H Activated Partial Thromboplast Time 26.6 SEC (24.5-34.5) Lipid panel Test 06/27/25 19:50 Lipase 26 U/L (12-53) Cardiac Markers Test 06/27/25 19:50 B-Type Natriuretic Peptide 590.47 pg/mL (0-100) LFT Test 06/27/25 19:50 06/28/25 02:50 Alanine Aminotransferase (ALT) 1754 U/L (7-40) H 1682 U/L (7-40) H Alkaline Phosphatase 77 U/L (46-116) 113 U/L (46-116) Aspartate Amino Transferase (AST) 1498 U/L (13-40) H 1381 U/L (13-40) H Total Bilirubin 1.4 mg/dL (0.2-1.0) H 1.9 mg/dL (0.2-1.0) H HgA1c, TSH Test 06/27/25 19:50 Hemoglobin A1c 5.4 % A1C (<5.7) Thyroid Stimulating Hormone (TSH) 3.36 uIU/mL (0.55-4.78) Urinalysis Test 06/27/25 22:42 Urine Color Yellow (Yellow) Urine Clarity Clear (Clear) Urine pH 5.5 (5.0-9.0) Urine Specific [place] 1.030 (1.001-1.035) Urine Protein 1+ (Negative) H Urine Ketones Negative (Negative) Urine Blood Negative /uL (Negative) Urine Nitrite Negative (Negative) Urine Bilirubin Negative (Negative) Urine Urobilinogen Normal mg/dL (Negative) Urine Leukocyte Esterase 1+ /uL (Negative) Urine RBC 3 /hpf (0 - 3) Urine Microscopic WBC < 1 /HPF (0-3) Urine Squamous Epithelial Cells Few /hpf (<5) Urine Bacteria None seen /hpf (None Seen) Urine Hyaline Casts Few /lpf (0 - 2) Urine Mucus Few (None Seen) Urine Yeast (Budding) Occasional /hpf (None Urine Glucose Normal mg/dL (Normal) Blood Gas Results Test 06/28/25 05:07 06/28/25 06:50 Arterial Blood pH 7.168 (7.350-7.450) 7.334 (7.350-7.450) FiO2 % 100.0 50.0 Assessment/Plan Assessment/Plan Metabolic encephalopathy with a agitation Given patient agitated and heart rate is controlled we will transition IV amiodarone to oral amiodarone. Continue beta michelle. Given afebrile start him on stroke prevention with the full dose therapeutic Lovenox. Aspiration and fall precautions. Continue current antibiotics. Follow the labs. Continue rest of supportive care and treatment. I will repeat lactic acid given this morning it was elevated. I will start him on IV fluids. Discussed with the nurse at bedside regarding care plan. Prognosis remains guarded at present. Plan discussed with: Other My Orders Orders - GURDEEP FLETCHER MD Procedure Category Date Status Time Amiodarone Tablet PHA 06/28/25 In Process (Cordarone Tablet) 22:00 Sodium Chloride 0.9% PHA 06/28/25 Logged 17:00 Sodium Chloride 0.9% PHA 06/28/25 Logged 17:00 Lactic Acid W/ Reflex LAB 06/28/25 Logged Order 16:46 Lactic Acid W/ Reflex LAB 06/29/25 Verified Order 04:00 Basic Metabolic Panel LAB 06/29/25 Verified 04:00 Strict Aspiration PAM 06/28/25 In Process Precautions 16:46 Troponin-I Hs LAB 06/29/25 Verified 04:00 Troponin-I Hs LAB 06/28/25 Transmitted 19:49 Problem List: (1) Atrial fibrillation with RVR (2) Elevated LFTs (3) Sepsis (4) Leukocytosis (5) Generalized weakness Date of Service: Jun 28, 2025 Billing Provider: GURDEEP FLETCHER MD Common Visit Codes: [id number] INP/OBS CARE(MOD) GURDEEP FLETCHER MD Jun 28, 2025 16:53
[2025-06-28] MEDS: SODIUM CHLORIDE 0.9% 1,000 ML IV SCH (17:14)
[2025-06-28] MEDS: SODIUM CHLORIDE 0.9% 500 ML IV ONE (17:15)
[2025-06-28 18:28] LABS: Lactic Acid w/Reflex 7.8 mmol/L (0.4-2.0)
[2025-06-28] MEDS ORDERED: clonazePAM 0.5 MG TAB PO PRN (19:30)
--- NOTE | 2025-06-28 21:33 | DVHINCON2 ---
Date of service: Jun 28, [address] Chu Family History: Patient reports no known family medical history. Allergies: Coded Allergies: NO KNOWN ALLERGIES (Unverified , 10/31/22) Home Meds Reported Medications Diphenhydramine-Acetaminophen (Tylenol Pm Extra Strength 500-25 mg) 1 Tab Tab, 1 TAB PO, TAB 09/17/23 Levothyroxine Sodium (Levothyroxine Sodium) 50 Mcg Tab, 0.5 TAB PO DAILY 11/30/22 Potassium Chloride (K-Tabs) 10 Meq Tab 11/30/22 Tramadol Hcl (Tramadol Hcl) 50 Mg Tab, 1 TAB PO BIDPRN PRN for PAIN SCALE 1 THRU 6 11/30/22 Folic Acid (Folic Acid) 1 Mg Tab, 1 MG PO DAILY, MG 10/31/22 Cholecalciferol (VITAMIN D-3) 1,000 Unit Tab, 1000 UNIT PO DAILY for SUPPLEMENT, TAB 10/31/22 Famotidine (Famotidine) 20 Mg Tab, 40 MG PO BID for GERD, MG 10/31/22 Magnesium Oxide (MAGNESIUM OXIDE) 400 Mg Tab, 1 TAB PO DAILY for SUPPLEMENT, #30 TAB 5 Refills 10/31/22 Clopidogrel Bisulfate (Plavix) 75 Mg Tab, 75 MG PO DAILY, TAB 04/02/18 Infliximab (Remicade) 100 Mg Inj, 100 MG IV MONTHLY for PSORIATIC ARTHRITIS, INJ 04/23/14 Clonazepam (Clonazepam) 0.5 Mg Tab, PO DAILYP PRN for ANXIETY, #90 04/23/14 Methotrexate (Methotrexate) 2.5 Mg Tab, 20 MG PO QWEDNESDAY for RHEUMATOID ARTHRITIS, #72 04/23/14 Current Medications Current Medications Medications (Trade) Dose Ordered Sig/Shemar Route PRN Reason Start Time Stop Time Status Last Admin Famotidine (Pepcid Injection) 20 mg DAILY IV 06/28/25 10:00 06/28/25 10:42 Atorvastatin Calcium (Lipitor) 20 mg HS PO 06/27/25 22:00 06/28/25 01:02 Metoprolol Tartrate (Lopressor Tablet) 25 mg BID PO 06/27/25 22:00 06/28/25 10:37 Levothyroxine Sodium (Synthroid Tablet) 50 mcg QAM@0600 PO 06/28/25 06:00 Clopidogrel Bisulfate (Plavix) 75 mg DAILY PO 06/28/25 10:00 06/28/25 10:36 Sodium Chloride (Saline Lock Ns) 10 ml Q8HR IV 06/27/25 22:00 06/28/25 14:23 Amiodarone HCl (Cordarone Tablet) 200 mg Q12HR PO 06/27/25 22:00 06/28/25 16:45 DC Piperacillin Sod/ Tazobactam Sod 100 ml @ 25 mls/hr Q8HR IV 06/27/25 22:00 06/28/25 03:04 DC Amiodarone HCl 250 ml @ 16.66 mls/ hr Q15H1M IV 06/28/25 03:15 06/28/25 16:39 DC 06/28/25 05:55 Vancomycin HCl 250 ml @ 250 mls/hr Q1H IV 06/27/25 22:15 06/28/25 00:14 DC 06/28/25 02:33 Furosemide (Lasix Injection) 20 mg DAILY IV 06/28/25 10:00 06/28/25 10:38 Piperacillin Sod/ Tazobactam Sod 100 ml @ 25 mls/hr Q8HR IV 06/28/25 03:04 06/28/25 10:48 DC 06/28/25 03:51 Methylprednisolone Sodium Succinate (Solu Medrol) 40 mg Q8HR IV 06/29/25 06:00 06/28/25 16:49 DC Piperacillin Sod/ Tazobactam Sod 100 ml @ 25 mls/hr Q8H IV 06/28/25 11:00 06/28/25 19:00 Amiodarone HCl (Cordarone Tablet) 400 mg Q12HR PO 06/28/25 22:00 Sodium Chloride 1,000 ml @ 100 mls/hr Q10H IV 06/28/25 17:00 06/28/25 17:14 Enoxaparin Sodium (Lovenox) 80 mg Q12HR SC 06/28/25 22:00 Clonazepam (KlonoPIN TABLET) 0.5 mg Q8HPRN PRN PO ANXIETY 06/28/25 19:15 Clonazepam (KlonoPIN TABLET) 0.5 mg Q8HPRN PRN PO ANXIETY 06/28/25 19:30 Vital Signs Vital Signs Date Time Temp Pulse Resp B/P (MAP) Pulse Ox O2 Delivery O2 Flow Rate FiO2 12/27/25 20:10 98.1 80 18 99/55 (70) 97 98.1 06/28/25 20:10 Nasal Cannula* 3 32 Labs/Diagnostic Data Labs Test 06/28/25 17:58 06/28/25 06:50 06/28/25 05:07 06/28/25 02:50 Range/Units Lactic Acid Level 7.8 *H 0.4-2.0 mmol/L Troponin I High Sensitivity 203 *H </=54 ng/L Blood Gas Specimen Type Arterial Blood Gas Sample Site Right radial Blood Gas Patient Temperature 37.0 Arterial Blood Date Drawn [id number] Arterial Blood pH 7.334 L 7.350-7.450 Arterial Blood Partial Pressure CO2 25.8 L 35.0-48.0 mmHg Arterial Blood Partial Pressure O2 142.4 H 83.0-108.0 mmHg Arterial Blood HCO3 13.4 L 21.0-28.0 mmol/L Arterial Blood Oxygen Saturation 99.0 H 94.0-98.0 % Arterial Blood Base Excess -10.5 L -2.0-3.0 mmol/L Arterial Blood Oxyhemoglobin 97.3 94.0-98.0 % Arterial Blood Carboxyhemoglobin 1.3 0.5-1.5 % Arterial Blood Methemoglobin 0.4 0.0-1.5 % Arterial Blood Deoxyhemoglobin 1.0 0.0-5.0 % Gaudencio Test Yes Blood Gas Total Hemoglobin 15.40 13.5-17.5 g/dL Blood Gas Set Respiration Rate 12.0 Blood Gas Modality Mask - bipap FiO2 % 50.0 Blood Gas EPAP 5 Blood Gas IPAP 12 Blood Gas Critical Value Read Back Yes Blood Gas Notified Whom geo Thorne Blood Gas Notified Time [id number] Blood Gas Notified By Tile Setter Supervisor omid fernández White Blood Count 25.7 #H 4.4-10.8 10^3/uL Red Blood Count 4.68 4.5-5.90 10^6/uL Hemoglobin 14.6 13.5-17.5 g/dL Hematocrit 45.4 41.0-53.0 % Mean Corpuscular Volume 96.9 80.0-100.0 fL Mean Corpuscular Hemoglobin 31.3 28.0-32.0 pg Mean Corpuscular Hemoglobin Concent 32.3 32.0-36.0 g/dL Red Cell Distribution Width 19.2 H 11.8-14.3 % Platelet Count 212 140-450 10^3/uL Mean Platelet Volume 9.4 6.9-10.8 fL Neutrophils (%) (Auto) 85.1 H 37.0-80.0 % Lymphocytes (%) (Auto) 4.7 L 10.0-50.0 % Monocytes (%) (Auto) 10.1 0.0-12.0 % Eosinophils (%) (Auto) 0.0 0.0-7.0 % Basophils (%) (Auto) 0.1 0.0-2.0 % Neutrophils # (Auto) 21.9 H 1.6-8.6 10 ^3/uL Lymphocytes # (Auto) 1.2 0.4-5.4 10 ^3/uL Monocytes # (Auto) 2.6 H 0-1.3 10 ^3/uL Eosinophils # (Auto) 0 0-0.8 10 ^3/uL Basophils # (Auto) 0 0-0.2 10 ^3/uL Nucleated Red Blood Cells 0.5 % Sodium Level 130 L 136-145 mmol/L Potassium Level 4.6 3.5-5.1 mmol/L Chloride Level 99 98-107 mmol/L Carbon Dioxide Level 15 L 20-31 mmol/L Anion Gap 16 H 5-15 Blood Urea Nitrogen 30 #H 9-23 mg/dL Creatinine 1.31 H 0.700-1.30 mg/dL Glomerular Filtration Rate Calc 53 >90 mL/min BUN/Creatinine Ratio 22.9 H 10.0-20.0 Serum Glucose 212 H 74-106 mg/dL Calcium Level 8.4 L 8.7-10.4 mg/dL Total Bilirubin 1.9 H 0.2-1.0 mg/dL Aspartate Amino Transferase (AST) 1381 H 13-40 U/L Alanine Aminotransferase (ALT) 1682 H 7-40 U/L Alkaline Phosphatase 113 46-116 U/L Total Protein 6.0 5.7-8.2 g/dL Albumin 3.5 3.2-4.8 g/dL Random Vancomycin Level 50.1 *H 5-10 ug/mL Test 06/27/25 22:42 06/27/25 20:50 06/27/25 19:50 Range/Units Urine Color Yellow Yellow Urine Clarity Clear Clear Urine pH 5.5 5.0-9.0 Urine Specific [place] 1.030 1.001-1.035 Urine Protein 1+ H Negative Urine Ketones Negative Negative Urine Blood Negative Negative /uL Urine Nitrite Negative Negative Urine Bilirubin Negative Negative Urine Urobilinogen Normal Negative mg/dL Urine Leukocyte Esterase 1+ Negative /uL Urine RBC 3 0 - 3 /hpf Urine Microscopic WBC < 1 0-3 /HPF Urine Squamous Epithelial Cells Few <5 /hpf Urine Bacteria None seen None Seen /hpf Urine Hyaline Casts Few 0 - 2 /lpf Urine Mucus Few None Seen Urine Yeast (Budding) Occasional None Seen /hpf Urine Glucose Normal Normal mg/dL Prothrombin Time 16.9 H 9.3-11.8 sec Prothrombin Time INR 1.68 H 0.9-1.15 Activated Partial Thromboplast Time 26.6 24.5-34.5 SEC Hemoglobin A1c 5.4 <5.7 % A1C Magnesium Level 2.2 1.6-2.6 mg/dL B-Type Natriuretic Peptide 590.47 0-100 pg/mL Lipase 26 12-53 U/L Thyroid Stimulating Hormone (TSH) 3.36 0.55-4.78 uIU/mL Microbiology Date/Time Source Procedure Growth Status 06/27/25 20:50 Blood Blood Culture - Preliminary NO GROWTH AFTER 24 HOURS OF INCUBATION. Resulted Plan/Recommendation Plan 1. Admitted to telemetry unit 2. Breathing treatment 3. Pain control management 4. IV antibiotic management 5. Management of fluids and electrolytes 7. Diagnostic test abdomen/pelvis CT 8. DVT prophylaxis-on aspirin 9. Repeat labs CBC, CMP in a.m. 10. Home medication reviewed and reconciled 11. Continue with current medical management 12. Treatment plan discussed with patient and RN. Patient verbalized understanding. Plan discussed with: Other (Nurse) DARÍO BYERS MD Jun 28, 2025 21:33
[2025-06-28] MEDS: AMIODARONE HCL 200 MG TAB PO SCH (21:38)
[2025-06-28] MEDS: ENOXAPARIN SOD 80 MG/0.8ML SYRINGE SC SCH (21:38)
[2025-06-29 01:13] VITALS: O2SAT 96
[2025-06-29 03:46] LABS: Hematocrit 42.6 % (41.0-53.0); Hemoglobin 13.8 g/dL (13.5-17.5); Mean Corpuscular Hemoglobin 31.7 pg (28.0-32.0); Mean Corpuscular Volume 97.7 fL (80.0-100.0); Nucleated Red Blood Cells % 0.2 %
[2025-06-29 03:55] LABS: Anion Gap 15 (5-15); Chloride 102 mmol/L (98-107)
[2025-06-29 03:59] LABS: Calcium 7.8 mg/dL (8.7-10.4); Carbon Dioxide 18 mmol/L (20-31); Potassium 5.4 mmol/L (3.5-5.1); Sodium 135 mmol/L (136-145)
[2025-06-29 04:01] LABS: BUN/Creatinine Ratio 27.5 (10.0-20.0)
[2025-06-29 04:06] LABS: Blood Urea Nitrogen 63 mg/dL (9-23); Glucose 73 mg/dL (74-106)
[2025-06-29 04:09] LABS: Lactic Acid w/Reflex 5.1 mmol/L (0.4-2.0)
[2025-06-29 04:13] LABS: INR 3.34 (0.9-1.15); Partial Thromboplastin Time 44.5 SEC (24.5-34.5); Prothrombin Time 31.4 sec (9.3-11.8)
[2025-06-29] MEDS: LACTATED RINGER'S 500 ML IV ONE (05:30)
[2025-06-29] MEDS ORDERED: methylPREDNISolone SOD SUCC 40 MG/ML VL IV SCH (06:00)
[2025-06-29 06:01] VITALS: O2SAT 97
[2025-06-29 07:23] VITALS: PULSE 67; RESP 12; O2SAT 95
[2025-06-29] MEDS: clonazePAM 0.5 MG TAB PO PRN (09:28)
[2025-06-29] MEDS: VANCOMYCIN 500mg/100mL 100 ML IV ONE (11:19)
--- NOTE | 2025-06-29 15:53 | DVHPN2 ---
Progress Note - Dictate Date Seen: Jun 29, 2025 Medical Necessity Reason Pt with a Central, PICC or Fol: No Subjective No new complaints Patient seen and bedside ER bed 4 He sleeping comfortably Extensive bruising on extremities is noted Patient has moderate elevation in liver enzymes On IV amiodarone for AFib with RVR Leukocytosis, elevated troponins, lactic acidosis vital signs Vital Sign Date Time Temp Pulse Resp B/P (MAP) Pulse Ox O2 Delivery O2 Flow Rate FiO2 06/29/25 13:02 67 06/29/25 12:00 109/78 (88) 06/29/25 10:00 18 06/29/25 08:00 97.5 95 97.5 06/29/25 07:23 Room Air* 0 21 Total Intake and Output 06/28/25 06/28/25 06/29/25 15:00 23:00 07:00 Intake Total 75 ml 600 ml 875 ml Balance 75 ml 600 ml 875 ml medications Current Medications Medications Dose Ordered Sig/Shemar Route Start Time Stop Time Status Last Admin Dose Admin Famotidine 20 mg DAILY IV 06/28/25 10:00 06/29/25 09:24 20 MG Atorvastatin Calcium 20 mg HS PO 06/27/25 22:00 06/28/25 21:38 20 MG Metoprolol Tartrate 25 mg BID PO 06/27/25 22:00 06/29/25 09:28 25 MG Levothyroxine Sodium 50 mcg QAM@0600 PO 06/28/25 06:00 06/29/25 05:44 50 MCG Clopidogrel Bisulfate 75 mg DAILY PO 06/28/25 10:00 06/29/25 09:29 75 MG Sodium Chloride 10 ml Q8HR IV 06/27/25 22:00 06/29/25 13:54 10 ML Acetaminophen/ Hydrocodone Bitart 1 tab Q4HP PRN PO 06/27/25 20:15 06/27/25 20:38 1 TAB Ondansetron HCl 4 mg Q4HP PRN IV 06/27/25 20:15 Docusate Sodium 100 mg BIDPRN PRN PO 06/27/25 20:15 Acetaminophen 650 mg Q6HP PRN PO 06/27/25 20:15 Nitroglycerin 0.4 mg Q5MINP PRN SL 06/27/25 20:30 Morphine Sulfate 2 mg Q30M PRN IV 06/27/25 21:00 Vancomycin HCl 0 ml @ 0 mls/hr PER PHARMACY IV 06/27/25 21:00 Furosemide 20 mg DAILY IV 06/28/25 10:00 06/29/25 09:27 20 MG Piperacillin Sod/ Tazobactam Sod 100 ml @ 25 mls/hr Q8H IV 06/28/25 11:00 06/29/25 12:35 25 MLS/HR Amiodarone HCl 400 mg Q12HR PO 06/28/25 22:00 06/29/25 09:29 400 MG Sodium Chloride 1,000 ml @ 100 mls/hr Q10H IV 06/28/25 17:00 06/29/25 13:10 100 MLS/HR Enoxaparin Sodium 80 mg Q12HR SC 06/28/25 22:00 06/29/25 09:24 80 MG Clonazepam 0.5 mg Q8HPRN PRN PO 06/28/25 19:15 06/29/25 09:28 0.5 MG Clonazepam 0.5 mg Q8HPRN PRN PO 06/28/25 19:30 objective General Appearance: Alert, Oriented X3, Cooperative, No acute distress HEENT: Atraumatic, PERRLA, EOMI, Mucous membr. moist/pink Respiratory: Normal air movement, Other (Diminished breath sounds) Cardiovascular: Regular rate, Normal S1, Normal S2, No murmurs Abdominal: Normal bowel sounds, Soft, No tenderness, No hepatospenomegaly, No masses Extremities: No clubbing, No cyanosis, No edema, Normal pulses, No tenderness/swelling Skin: No rashes, No significant lesion, extensive bruising Neuro: Normal speech, Normal tone, Sensation intact, Cranial nerves 3-12 NL, Reflexes 2+, Other (Generalized weakness) Psych/Mental Status: Mental status NL, Mood NL laboratory and microbiology Laboratory Tests 06/29/25 03:27 Test 06/29/25 03:27 Range/Units Serum Glucose 73 #L 74-106 mg/dL Problems(with codes): (1) Sepsis (2) Elevated LFTs (3) Atrial fibrillation with RVR (4) Rheumatoid arthritis (5) Generalized weakness (6) SVT (supraventricular tachycardia) (7) Cardiomegaly (8) Leukocytosis, unspecified (9) Generalized weakness (10) Elevated liver enzymes (11) Acute exacerbation of congestive heart failure (12) Sepsis, unspecified organism Prognosis Plan Check hepatitis profile Right upper quadrant ultrasound I believe his liver enzymes elevation is to hypoxemic liver injury and/or sepsis Monitor labs and coagulopathy, check ammonia level Plan discussed with: Patient Is the fluid challenge complet: Yes Date of Reassessment: Jun 27, 2025 Time of Reassessment: 2213 Blood Culture Time: 2046 Time Antibiotics Given: 2143 Systolic BP: 157 Diastolic BP: 108 Blood Pressure Mean: 124 Respiration: 22 Respiratory Effort: Non-Labored Respiratory Pattern: Regular Oxygen Saturation: 96 Pulse Rate: 144 Pulse Location: Radial Pulse Strength: Normal Pulse Assessment Method: Palpation Pulse Rhythm: Irregular Capillary Refill: < 3 seconds Heart Sounds: S1 & S2 Breath sounds: Clear Skin Moisture: Dry Skin Tugor: WNL Skin Color: WNL DARÍO BYERS MD Jun 29, 2025 15:53
--- NOTE | 2025-06-29 17:16 | DVH ---
EXAM: CT HEAD WITHOUT CONTRAST INDICATION: rule out stroke TECHNIQUE: CT of the head without intravenous contrast. Radiation Dose : 1. Head: CT Dose: CTDI volume is 53.99 mGy. Dose-length product is 956.05 mGy*cm The dose indicators for CT are the volume Computed Tomography (CT) Dose Index (CTDIvol) and the Dose Length Product (DLP), and are measured in units of mGy and mGy-cm, respectively. These indicators are not patient dose, but values generated from the CT scanner acquisition factors. The report includes radiation exposure data for exposures received during this examination. COMPARISON: None FINDINGS: Evaluation is degraded by motion artifact. No acute territorial infarct, intracranial hemorrhage, or mass effect. There are global involutional changes with compensatory prominence of the ventricles and sulci. Patchy periventricular and subcortical white matter hypoattenuation is nonspecific but may be related to small vessel ischemic disease. The orbits are normal. The paranasal sinuses and mastoid air cells are clear. The osseous structures are unremarkable. IMPRESSION: 1. No acute territorial infarct, intracranial hemorrhage, or mass effect. 2. Age-related involutional changes. Chronic microvascular changes. 3. If clinical symptoms persist, MRI may be beneficial in further evaluation. Radiation optimization: All CT scans at this facility use at least one of these dose optimization techniques: automated exposure control mA and/or kV adjustment per patient size (includes targeted exams where dose is matched to clinical indication) or iterative reconstruction.
--- NOTE | 2025-06-29 17:39 | DVH ---
INDICATION: elevated liver tests TECHNIQUE: Multiple real-time sonographic images of the abdomen were obtained. COMPARISON: None FINDINGS: Hepatic parenchyma is consistent with steatosis. The liver measures 15.6 cm. No intrahepatic biliary ductal dilatation is noted. There are bilateral pleural effusions The gallbladder wall measures 0.55 cm and is unremarkable. Cholelithiasis The common duct measures 0.36 cm and is unremarkable. No pericholecystic fluid is noted. Negative sonographic Davis's sign The right kidney measures 9.9 cm. No hydronephrosis. The pancreas is not well visualized due to obscuration from bowel gas. The visualized portions of the IVC and aorta are grossly unremarkable. IMPRESSION: 1. Cholelithiasis with thickened gallbladder wall. Sonographic davis's sign is negative. 2. Liver measures 15.6 cm with parenchymal changes consistent with steatosis. 3. Bilateral pleural effusions are seen
--- NOTE | 2025-06-29 17:55 | DVHPN2 ---
Subjective Patient's heart rate is controlled on oral amiodarone. However his kidney function slightly worsened. Leukocytosis. Lactic acid elevated but improved. at bedside. Changes from previous H/P or p: No Changes Eyes: No Pain, No Vision change, No Conjunctivae inflammation, No Eyelid inflammation, No Other, No Redness ENT: No Ear pain, No Ear discharge, No Nose pain, No Nose discharge, No Nose congestion, No Mouth pain, No Mouth swelling, No Throat pain, No Throat swelling, No Other Cardiovascular: No Chest Pain, No Palpitations, No Orthopnea, No Paroxysmal Noc. Dyspnea, No Edema, No Lt Headedness, No Other Respiratory: No Cough, No Dry; Shortness of breath; No SOB with excertion, No Wheezing, No Hemoptysis, No Pleuritic Pain, No Sputum, No Other Gastrointestinal: No Nausea, No Vomiting, No Abdominal Pain, No Diarrhea, No Constipation, No Melena, No Hematochezia, No Other Genitourinary: No Dysuria, No Frequency, No Incontinence, No Hematuria, No Retention, No Other Musculoskeletal: No other, No neck pain, No shoulder pain, No arm pain, No back pain, No hand pain, No leg pain, No foot pain Skin: No Rash, No Lesions, No Jaundice, No Bruising, No Other Objective Vitals Vital Signs Date Time Temp Pulse Resp B/P (MAP) Pulse Ox O2 Delivery O2 Flow Rate FiO2 06/29/25 13:02 67 06/29/25 12:00 109/78 (88) 06/29/25 10:00 18 06/29/25 08:00 97.5 95 97.5 06/29/25 07:23 Room Air* 0 21 Intake/Output Intake and Output 06/29/25 07:00 Intake Total 1550 ml Balance 1550 ml Intake IV Total 1550 ml Exam Alert and awake but confused. at bedside. HEENT neck supple no JVD pupils equal round react to light. Heart tachycardia S1 plus S2 without murmurs. Lungs poor inspiratory effort without rales or wheezing. Abdomen soft positive bowel sounds nontender. Extremities no edema positive pulses. Medications Current Medications Medications Dose Ordered Sig/Shemar Route Start Time Stop Time Status Last Admin Dose Admin Famotidine 20 mg DAILY IV 06/28/25 10:00 06/29/25 09:24 20 MG Atorvastatin Calcium 20 mg HS PO 06/27/25 22:00 06/28/25 21:38 20 MG Metoprolol Tartrate 25 mg BID PO 06/27/25 22:00 06/29/25 09:28 25 MG Levothyroxine Sodium 50 mcg QAM@0600 PO 06/28/25 06:00 06/29/25 05:44 50 MCG Clopidogrel Bisulfate 75 mg DAILY PO 06/28/25 10:00 06/29/25 09:29 75 MG Sodium Chloride 10 ml Q8HR IV 06/27/25 22:00 06/29/25 13:54 10 ML Acetaminophen/ Hydrocodone Bitart 1 tab Q4HP PRN PO 06/27/25 20:15 06/27/25 20:38 1 TAB Ondansetron HCl 4 mg Q4HP PRN IV 06/27/25 20:15 Docusate Sodium 100 mg BIDPRN PRN PO 06/27/25 20:15 Acetaminophen 650 mg Q6HP PRN PO 06/27/25 20:15 Nitroglycerin 0.4 mg Q5MINP PRN SL 06/27/25 20:30 Morphine Sulfate 2 mg Q30M PRN IV 06/27/25 21:00 Vancomycin HCl 0 ml @ 0 mls/hr PER PHARMACY IV 06/27/25 21:00 Furosemide 20 mg DAILY IV 06/28/25 10:00 06/29/25 09:27 20 MG Piperacillin Sod/ Tazobactam Sod 100 ml @ 25 mls/hr Q8H IV 06/28/25 11:00 06/29/25 12:35 25 MLS/HR Amiodarone HCl 400 mg Q12HR PO 06/28/25 22:00 06/29/25 09:29 400 MG Sodium Chloride 1,000 ml @ 100 mls/hr Q10H IV 06/28/25 17:00 06/29/25 13:10 100 MLS/HR Enoxaparin Sodium 80 mg Q12HR SC 06/28/25 22:00 06/29/25 09:24 80 MG Clonazepam 0.5 mg Q8HPRN PRN PO 06/28/25 19:15 06/29/25 09:28 0.5 MG Clonazepam 0.5 mg Q8HPRN PRN PO 06/28/25 19:30 Laboratory Results Laboratory Tests 06/29/25 03:27 Chemistry Test 06/29/25 03:27 Calcium Level 7.8 mg/dL (8.7-10.4) L Coagulation Test 06/29/25 03:27 Prothrombin Time 31.4 sec (9.3-11.8) H Prothrombin Time INR 3.34 (0.9-1.15) H Activated Partial Thromboplast Time 44.5 SEC (24.5-34.5) H Urinalysis Test 06/27/25 22:42 Urine Color Yellow (Yellow) Urine Clarity Clear (Clear) Urine pH 5.5 (5.0-9.0) Urine Specific [place] 1.030 (1.001-1.035) Urine Protein 1+ (Negative) H Urine Ketones Negative (Negative) Urine Blood Negative /uL (Negative) Urine Nitrite Negative (Negative) Urine Bilirubin Negative (Negative) Urine Urobilinogen Normal mg/dL (Negative) Urine Leukocyte Esterase 1+ /uL (Negative) Urine RBC 3 /hpf (0 - 3) Urine Microscopic WBC < 1 /HPF (0-3) Urine Squamous Epithelial Cells Few /hpf (<5) Urine Bacteria None seen /hpf (None Seen) Urine Hyaline Casts Few /lpf (0 - 2) Urine Mucus Few (None Seen) Urine Yeast (Budding) Occasional /hpf (None Urine Glucose Normal mg/dL (Normal) Microbiology Microbiology Date/Time Source Procedure Growth Status 06/27/25 20:50 Blood Blood Culture - Preliminary NO GROWTH AFTER 24 HOURS OF INCUBATION. Resulted Labs and/or images reviewed: Labs reviewed by me Assessment/Plan Assessment/Plan Metabolic encephalopathy with a agitation with a history of underlying dementia for at bedside Acute kidney injury Leukocytosis Elevated troponin I will get Infectious Disease consultation to adjust his antibiotics. Meantime I will DC Zosyn given worsening renal failure and start him on cefepime and continue vancomycin for pharmacy. We will have nephrology consultation for acute kidney injury. I will give another 500 cc fluid bolus today and continue current IV fluids for lactic acidosis. We will do follow serial lactic acid levels. Follow the labs. Otherwise continue rest of supportive care and treatment. Overall prognosis remains poor. Discussed with the along with the nurse at bedside regarding care plan. Patient did have a head CT which is unremarkable without any acute pathology. Continue rest of supportive care and treatment and further clinical management per clinical course. Plan discussed with: Spouse, Other My Orders Orders - GURDEEP FLETCHER MD Procedure Category Date Status Time Clonazepam Tablet PHA 06/28/25 In Process (Klonopin Tablet) 19:15 Clonazepam Tablet PHA 06/28/25 In Process (Klonopin Tablet) 19:[address] 06/29/25 Resulted 16:31 * Roadmaster CONS 06/29/25 Transmitted Consult Problem List: (1) Atrial fibrillation with RVR (2) Elevated LFTs (3) Leukocytosis (4) Sepsis (5) Generalized weakness (6) Dehydration Date of Service: Jun 29, 2025 Billing Provider: GURDEEP FLETCHER MD Common Visit Codes: [id number] INP/OBS CARE(HIGH) GURDEEP FLETCHER MD Jun 29, 2025 17:55
[2025-06-29] MEDS: SODIUM CHLORIDE 0.9% 500 ML IV ONE (18:15)
[2025-06-29 18:59] LABS: Lactic Acid w/Reflex 4.2 mmol/L (0.4-2.0)
[2025-06-29 19:35] VITALS: O2SAT 98
[2025-06-29 19:36] VITALS: O2SAT 98
[2025-06-29 20:00] VITALS: PULSE 68; RESP 18; O2SAT 97
[2025-06-29] MEDS: CEFEPIME 1GM/50ML 50 ML IV SCH (22:58)
[2025-06-30 07:24] VITALS: PULSE 51; RESP 18; O2SAT 94
[2025-06-30 07:34] VITALS: BP 149/132; PULSE 51; RESP 12; TEMP 97.7; O2SAT 94
[2025-06-30 07:37] LABS: Hematocrit 48.6 % (41.0-53.0); Mean Corpuscular Volume 101.1 fL (80.0-100.0)
[2025-06-30 07:39] LABS: Hemoglobin 15.1 g/dL (13.5-17.5); Mean Corpuscular Hemoglobin 31.4 pg (28.0-32.0)
[2025-06-30 08:07] LABS: INR > 8.0 (0.9-1.15)
[2025-06-30 08:09] LABS: Anion Gap 21 (5-15); BUN/Creatinine Ratio 14.7 (10.0-20.0); Chloride 103 mmol/L (98-107)
[2025-06-30 08:11] LABS: Albumin 3.2 g/dL (3.2-4.8); Carbon Dioxide 11 mmol/L (20-31); Sodium 135 mmol/L (136-145)
[2025-06-30 08:12] LABS: Blood Urea Nitrogen 48 mg/dL (9-23)
[2025-06-30 08:17] LABS: Lactic Acid w/Reflex 7.3 mmol/L (0.4-2.0)
[2025-06-30 08:18] LABS: Alkaline Phosphatase 119 U/L (46-116); Bilirubin, Total 5.3 mg/dL (0.2-1.0); Calcium 7.3 mg/dL (8.7-10.4); Glucose 32 mg/dL (74-106); Potassium 5.6 mmol/L (3.5-5.1); Total Protein 5.5 g/dL (5.7-8.2)
[2025-06-30 08:20] LABS: Alanine Aminotransferase 3998 U/L (7-40)
[2025-06-30 08:32] LABS: Macrocytosis Slight; Total Cells Counted 100.0 (100)
--- NOTE | 2025-06-30 09:34 | RESUS ---
CODE BLUE ASSESSSMENT History of Events History of Events: PT FOUND IN ER BED 4 AGONAL BREATHING. UPON PREPARING FOR INTUBATION PT LOST PULSES. CPR INITIATED BY ER STAFF. Initial Information Date: Jun 30, 2025 Time: 07:42 Location of Arrest: ER Arrest Witnessed: Yes CPR started initial time: 07:42 CPR started by whom: Hospital Staff Pre-Hospital Care: ACLS Type of arrest: Cardiac, Respiratory Spontaneous Respirations: No Pulse Present: No Monitoring: Pulse Oximetry, Telemetry Crash Cart Opened and Supplies: Yes Airway Ventilation Breathing at Onset: Assisted Oxygen Delivery Method: Ambu-Bag Intubation Time: 07:52 Intubation Size: 8.0 cuffed Intubated by: DR BARROW Intubated orally: Yes Tube secured at: 24 Circulation Circulation #1: Time: 07:44 Pulse Rate (adult): 0 Blood Pressure Systolic: 0 Blood Pressure Diastolic: 0 Circulation #2: Time: 07:49 Pulse Rate (adult): 0 Blood Pressure Systolic: 0 Blood Pressure Diastolic: 0 Temperature (Fahrenheit): 96.2 Circulation #3: Time: 07:53 Pulse Rate (adult): 0 Blood Pressure Systolic: 0 Blood Pressure Diastolic: 0 Circulation #4: Time: 07:57 Pulse Rate (adult): 0 Blood Pressure Systolic: 0 Blood Pressure Diastolic: 0 Circulation #5: Time: 08:01 Pulse Rate (adult): 0 Blood Pressure Systolic: 0 Blood Pressure Diastolic: 0 Procedure - Intraosseous Time of intraosseous: 07:46 Site of Intraosseous: Tibia kishor-medial Intraosseous inserted by: DONTRELL LUCAS Number of attempts for Intraos: 2 Medications & Response Medications and Responses #1: Medication Time: 07:47 ADULT Medications Given ADULT: Epinephrine 1 mg Route of Administration: IO EKG Rhythm: Asystole EKG Rhythm: Asystole Medications and Responses #2: Medication Time: 07:57 ADULT Medications Given ADULT: Sodium Bacarbinate 50 meq Route of Administration: IO Medications and Responses #3: Medication Time: 07:50 ADULT Medications Given ADULT: Epinephrine 1 mg Route of Administration: IO EKG Rhythm: Asystole EKG Rhythm: Asystole Medications and Responses #4: Medication Time: 07:52 ADULT Medications Given ADULT: Sodium Bacarbinate 50 meq Medications and Responses #5: Medication Time: 07:53 ADULT Medications Given ADULT: Epinephrine 1 mg Route of Administration: IO EKG Rhythm: Asystole EKG Rhythm: Asystole Medications and Responses #6: Medication Time: 07:56 ADULT Medications Given ADULT: D50 (amp) Route of Administration: IO Medication Comment: DEXTROSE GIVEN FOR BS OF 17 Medications and Responses #7: Medication Time: 07:54 ADULT Medications Given ADULT: Calcium Chloride 10 mL Route of Administration: IO Medications and Responses #8: Medication Time: 07:56 ADULT Medications Given ADULT: Epinephrine 1 mg Route of Administration: IO Medications and Responses #9: Medication Time: 08:00 ADULT Medications Given ADULT: Epinephrine 1 mg Route of Administration: IO EKG Rhythm: Asystole EKG Rhythm: Asystole Nurses Notes [place] Coma Scale Eye Opening: None (1) [place] Coma Scale Verbal: None (1) [place] Coma Scale Motor: None (1) [place] Total: 3 Pupil Reaction: Non Reactive Time Code Ended Time Code Ended: 08:01 Post Arrest Status: Outcome of code: Unsuccessful Patient pronounced by: DR BARROW Time patient pronounced: 08:01 Family notified: Yes Code Team Present: DR DANIAL PEREZ RT ELIDIA HARVEY RT Post Resuscitation Neurologica Pupil Size: 4 MED [place] Jun 30, 2025 09:34
[2025-06-30] MEDS ORDERED: ENOXAPARIN SOD 80 MG/0.8ML SYRINGE SC SCH (10:00)
[2025-06-30 12:59] LABS: Hepatitis A Total Antibody Positive (Negative); Hepatitis C Antibody Negative (Negative)
[2025-06-30 13:00] LABS: Hepatitis B Surface Antigen Negative (Negative)
--- NOTE | 2025-06-30 16:01 | DVHDS2 ---
Summary Date of Admission Jun 27, 2025 at 20:29 Date and Time of Expiration: Jun 30, 2025 08:01 Labs/Diagnostic Data: Laboratory Results Test 06/30/25 07:24 06/29/25 03:27 06/28/25 06:50 06/28/25 05:07 White Blood Count 31.1 10^3/uL (4.4-10.8) Red Blood Count 4.81 10^6/uL (4.5-5.90) Hemoglobin 15.1 g/dL (13.5-17.5) Hematocrit 48.6 % (41.0-53.0) Mean Corpuscular Volume 101.1 fL (80.0-100.0) Mean Corpuscular Hemoglobin 31.4 pg (28.0-32.0) Mean Corpuscular Hemoglobin Concent 31.1 g/dL (32.0-36.0) Red Cell Distribution Width 19.6 % (11.8-14.3) Platelet Count 111 10^3/uL (140-450) Mean Platelet Volume 11.1 fL (6.9-10.8) Neutrophils (%) (Auto) % (37.0-80.0) Lymphocytes (%) (Auto) % (10.0-50.0) Monocytes (%) (Auto) % (0.0-12.0) Basophils (%) (Auto) % (0.0-2.0) Neutrophils # (Auto) 10 ^3/uL (1.6-8.6) Lymphocytes # (Auto) 10 ^3/uL (0.4-5.4) Monocytes # (Auto) 10 ^3/uL (0-1.3) Differential Total Cells Counted 100.0 (100) Neutrophils % (Manual) 94 (37.0-80.0) Band Neutrophils % (Manual) 0 Lymphocytes % (Manual) 3 (10.0-50.0) Monocytes % (Manual) 3 (0-12) Eosinophils % (Manual) 0 (0-7) Basophils % (Manual) 0 (0.0-2.0) Metamyelocytes % (manual) 0 Myelocytes % (Manual) 0 Promyelocytes % (Manual) 0 Blast Cells % (Manual) 0 Reactive Lymphocytes 0 Platelet Estimate Decreased Macrocytosis Slight Prothrombin Time sec (9.3-11.8) Prothrombin Time INR > 8.0 (0.9-1.15) Sodium Level 135 mmol/L (136-145) Potassium Level 5.6 mmol/L (3.5-5.1) Chloride Level 103 mmol/L (98-107) Carbon Dioxide Level 11 mmol/L (20-31) Anion Gap 21 (5-15) Blood Urea Nitrogen 48 mg/dL (9-23) Creatinine 3.26 mg/dL (0.700-1.30) Glomerular Filtration Rate Calc 18 mL/min (>90) BUN/Creatinine Ratio 14.7 (10.0-20.0) Serum Glucose 32 mg/dL (74-106) Lactic Acid Level 7.3 mmol/L (0.4-2.0) Calcium Level 7.3 mg/dL (8.7-10.4) Total Bilirubin 5.3 mg/dL (0.2-1.0) Aspartate Amino Transferase (AST) 2524 U/L (13-40) Alanine Aminotransferase (ALT) 3998 U/L (7-40) Alkaline Phosphatase 119 U/L (46-116) Ammonia 42 umol/L (11-32) Total Protein 5.5 g/dL (5.7-8.2) Albumin 3.2 g/dL (3.2-4.8) Random Vancomycin Level 14.0 ug/mL (5-10) Eosinophils (%) (Auto) 0.0 % (0.0-7.0) Eosinophils # (Auto) 0 10 ^3/uL (0-0.8) Basophils # (Auto) 0.1 10 ^3/uL (0-0.2) Nucleated Red Blood Cells 0.2 % Activated Partial Thromboplast Time 44.5 SEC (24.5-34.5) Troponin I High Sensitivity 243 ng/L (</=54) Blood Gas Specimen Type Arterial Blood Gas Sample Site Right radial Blood Gas Patient Temperature 37.0 Arterial Blood Date Drawn [id number] Arterial Blood pH 7.334 (7.350-7.450) Arterial Blood Partial Pressure CO2 25.8 mmHg (35.0-48.0) Arterial Blood Partial Pressure O2 142.4 mmHg (83.0-108.0) Arterial Blood HCO3 13.4 mmol/L (21.0-28.0) Arterial Blood Oxygen Saturation 99.0 % (94.0-98.0) Arterial Blood Base Excess -10.5 mmol/L (-2.0-3.0) Arterial Blood Oxyhemoglobin 97.3 % (94.0-98.0) Arterial Blood Carboxyhemoglobin 1.3 % (0.5-1.5) Arterial Blood Methemoglobin 0.4 % (0.0-1.5) Arterial Blood Deoxyhemoglobin 1.0 % (0.0-5.0) Gaudencio Test Yes Blood Gas Total Hemoglobin 15.40 g/dL (13.5-17.5) Blood Gas Set Respiration Rate 12.0 Blood Gas Modality Mask - bipap FiO2 % 50.0 Blood Gas EPAP 5 Blood Gas IPAP 12 Blood Gas Critical Value Read Back Yes Blood Gas Notified Whom geo Thorne Blood Gas Notified Time [id number] Blood Gas Notified By [employer] omid fernández Test 06/27/25 23:03 06/27/25 22:42 06/27/25 19:50 Hepatitis A IgM Antibody Negative Hepatitis A Antibody Total Positive (Negative) Hepatitis B Surface Antigen Negative (Negative) Hepatitis B Surface Antibody Negative (Negative) Hepatitis B Core Total Antibody Negative (Negative) Hepatitis B Core IgM Antibody Negative (Negative) Hepatitis C Antibody Negative (Negative) HIV (1&2) Antibody Negative (Negative) Urine Color Yellow (Yellow) Urine Clarity Clear (Clear) Urine pH 5.5 (5.0-9.0) Urine Specific [place] 1.030 (1.001-1.035) Urine Protein 1+ (Negative) Urine Ketones Negative (Negative) Urine Blood Negative /uL (Negative) Urine Nitrite Negative (Negative) Urine Bilirubin Negative (Negative) Urine Urobilinogen Normal mg/dL (Negative) Urine Leukocyte Esterase 1+ /uL (Negative) Urine RBC 3 /hpf (0 - 3) Urine Microscopic WBC < 1 /HPF (0-3) Urine Squamous Epithelial Cells Few /hpf (<5) Urine Bacteria None seen /hpf (None Seen) Urine Hyaline Casts Few /lpf (0 - 2) Urine Mucus Few (None Seen) Urine Yeast (Budding) Occasional /hpf (None Urine Glucose Normal mg/dL (Normal) Hemoglobin A1c 5.4 % A1C (<5.7) Magnesium Level 2.2 mg/dL (1.6-2.6) B-Type Natriuretic Peptide 590.47 pg/mL (0-100) Lipase 26 U/L (12-53) Thyroid Stimulating Hormone (TSH) 3.36 uIU/mL (0.55-4.78) Other Laboratory Tests 06/30/25 07:24 Brief Hx & Hospital Course: The patient is a 84-year-old male with multiple past medical history including atrial fibrillation, hypertension, anxiety, dementia, and Coronary artery disease who presented to [facility] with complaint of palpitations. Patient reports that she has been experiencing left upper quadrant pain, racing heart sensation, so 911 was called. When EMS arrived on the scene, initial EKG showed atrial fibrillation with RVR EN route to our facility ED. Patient was seen and evaluated in the ED, laboratory data shows WBC 18.3, platelets 212, sodium 131, potassium 5.1, BUN 42, creatinine 1.38, GFR 50, glucose 163, calcium 9.0, TSH 3.36, troponin 140, lactic acid 3.5, total bilirubin 1.4, ALT 1498, ALT 1754, BNP 590.47, blood pressure 130/78, heart rate 168 trending down to 110, temperature 98.1 F, O2 saturation 95% on oxygen. Abdomen/pelvis CT revealing mild abdominopelvic ascites and mesenteric stranding. Chest x-ray revealing cardiomegaly with increased interstitial prominence, this may represent pulmonary vascular congestion and/or viral pneumonia. Patient was started on IV antibiotic regimen Zosyn, please see medication orders section in the computer. On my assessment, at bedside, patient denied chest pain, no headache, dizziness, diaphoresis, currently on oxygen, no abdominal pain, diarrhea, nausea, vomiting, fever, no chills. Patient was admitted for further evaluation and medical management. He is admitted and started on cardiac medications and anticoagulation for stroke prevention for AFib. He is noted to have elevated lactic acidosis for which he is started on fluids and antibiotics. Underwent GI evaluation. Patient remained confused and agitated however remained clinically stable till this morning. Apparently this morning he was noted to be in agonal breathing therefore code blue called and CPR initiated. In preparation for intubation patient noted to lost pulses therefore he received ACL protocol with the epi and sodium bicarb. Patient did not return to spontaneous circulation and subsequently pronounced by ER physician at 8:01 a.m.. I have not physically seen in the patient this morning. I was notified by ER physician noted in the cord regarding his . Final Diagnosis/Problems List Atrial fibrillation Non ST-elevation DE with elevated troponin Acute on Chronic congestive heart failure Congestive cardiomyopathy Elevated liver function tests/transaminitis Lactic acidosis Acute kidney injury Metabolic encephalopathy [facility] Jun 30, 2025 16:01
--- NOTE | 2025-06-30 20:00 | ECG ---
[facility] Test Date: 2025-06-27 Test Time: 18:53:17 Pat Name: GEOVANNY THOMSON Department: [facility] ED Room: [address] [place] [address] Gender: M Social Service Manager: JOSH : 1940 Requested By: ROSITA STANLEY Order Number: [id number] Reading MD: Donovan Almazan Measurements Intervals [place] Rate: 150 P: 0 CA: 0 QRS: 69 QRSD: 143 T: 245 QT: 322 QTc: 509 Interpretive Statements Extreme tachycardia with wide complex, no further rhythm analysis attempted Electronically Signed On 07-03-2025 17:37:55 PST by Donovan Almazan Please click the below link to view image of tracing.
[2025-07-01] MEDS ORDERED: FAMOTIDINE (10MG/ML) 2ML VL IV SCH (10:00)
== END 2025-06-30 08:01 ==
LOC: EDBD 18:40 → ER 18:40 → OVERFLOW 20:29
PROVIDERS: ADMIT Internal Medicine; ATTEND Internal Medicine
PROC: 5A09357 Assistance with Respiratory Ventilation, Less than 24 Consecutive Hours, Continuous Positive Airway Pressure (ICD-10-PCS; 2025-06-28)
PROC: 5A12012 Performance of Cardiac Output, Single, Manual (ICD-10-PCS; principal; 2025-06-30)
PROC: 0BH17EZ Insertion of Endotracheal Airway into Trachea, Via Natural or Artificial Opening (ICD-10-PCS; 2025-06-30)
DX: I21.4 Non-ST elevation (NSTEMI) myocardial infarction (principal); G93.41 Metabolic encephalopathy; I50.43 Acute on chronic combined systolic (congestive) and diastolic (congestive) heart failure; E87.20 Acidosis, unspecified; R18.8 Other ascites; I42.0 Dilated cardiomyopathy; I11.0 Hypertensive heart disease with heart failure; N17.9 Acute kidney failure, unspecified; I46.9 Cardiac arrest, cause unspecified; F03.94 Unspecified dementia, unspecified severity, with anxiety; I48.91 Unspecified atrial fibrillation; K21.9 Gastro-esophageal reflux disease without esophagitis; R74.8 Abnormal levels of other serum enzymes; R74.01 Elevation of levels of liver transaminase levels; I25.10 Atherosclerotic heart disease of native coronary artery without angina pectoris; Z79.899 Other long term (current) drug therapy
CPT/HCPCS: 36415; 36600; 70450; 71045; 71275; 74176; 76705; 80048; 80053; 80202; 81001; 82140; 82805; 83036; 83605; 83690; 83735; 83880; 84443; 84484; 85007; 85025; 85027; 85610; 85730; 86703; 86704; 86705; 86706; 86708; 86709; 86803; 87040; 87340; 92950; 93005; 94660; 96365; 99291; G0378; J2543; J3490